=== PATIENT | male | born 1960 | race Hispanic/Latino ===

== ENCOUNTER 2021-06-08 00:09 | Emergency (ER) | payer OTHER ==
[2021-06-08] MEDS ORDERED: SODIUM CHLORIDE 0.9% 1000 ML 1,000 ML IV ONE ×2 (02:35→04:07)
--- NOTE | 2021-06-08 02:35 | Emergency Department Report ---
ED Fall HPI - General Chief Complaint: Fall Stated Complaint: HEAD INJURY Time Seen by Provider: 06/08/21 02:25 Source: patient, EMS Mode of arrival: Stretcher - History of Present Illness Initial Comments: Patient is 61 years old male brought to the emergency room from a local [facility] facility for evaluation after a fall. Patient stated that he slipped and fell hit his back of his head he has ecchymosis to the back of the head. Patient also is complaining of lower back pain however stated that this is been going on for a while and is not due to the fall. Patient denied any loss of consciousness. No neck pain. No weakness numbness or tingling sensation. No bowel or bladder incontinence. MD Complaint: fall -: Sudden, Last night Fall From: standing Loss of Consciousness: none Prolonged Down Time?: no Symptoms Prior to Fall: none Location: head, back Context: tripped/slipped Associated Symptoms: headache. denies: neck pain, numbness, chest paint, shortness of breath, abdominal pain, hematuria, unable to walk, lightheaded - Related Data Allergies Allergy/AdvReac Type Severity Reaction Status Date / Time No Known Allergies Allergy Unverified 06/08/21 01:55 ED Review of Systems ROS: Stated complaint: HEAD INJURY Other details as noted in HPI Comment: All other systems reviewed and negative Constitutional: denies: chills, fever Respiratory: denies: cough, orthopnea, shortness of breath, SOB with exertion Cardiovascular: denies: chest pain, palpitations Gastrointestinal: denies: abdominal pain, nausea, vomiting, diarrhea, constipation, hematemesis Musculoskeletal: back pain Neurological: headache. denies: weakness, numbness, paresthesias, confusion ED Past Medical Hx - Past Medical History Previous Medical History?: Yes Hx Hypertension: Yes Hx Psychiatric Treatment: Yes (Depression) Additional medical history: Gout,. Cirrohiss of Liver - Surgical History Past Surgical History?: No ED Physical Exam - General Limitations: No Limitations General appearance: alert, in no apparent distress - Head Head exam: Present: normocephalic, normal inspection, other (Ecchymosis to the back of the head.) - Eye Eye exam: Present: normal appearance - ENT ENT exam: Present: normal exam - Neck Neck exam: Present: normal inspection, full ROM. Absent: tenderness, meningismus - Respiratory Respiratory exam: Present: normal lung sounds bilaterally - Cardiovascular Cardiovascular Exam: Present: regular rate, normal rhythm, normal heart sounds - GI/Abdominal GI/Abdominal exam: Present: soft, normal bowel sounds. Absent: distended, tenderness, guarding, rebound, rigid, organomegaly, mass, bruit, pulsatile mass, hernia - Extremities Exam Extremities exam: Present: normal inspection, full ROM, normal capillary refill. Absent: tenderness, pedal edema, joint swelling, calf tenderness - Back Exam Back exam: Present: normal inspection, full ROM. Absent: CVA tenderness (R), CVA tenderness (L) - Neurological Exam Neurological exam: Present: alert, oriented X3, CN II-XII intact, normal gait, reflexes normal. Absent: motor sensory deficit - Psychiatric Psychiatric exam: Present: normal mood - Skin Skin exam: Present: warm, intact, normal color ED Course Vital Signs 06/08/21 06/08/21 06/08/21 01:56 02:47 04:08 Temperature 98.2 F Pulse Rate 105 H 72 Respiratory 16 16 Rate Blood Pressure 94/56 94/66 88/56 [Right] O2 Sat by Pulse 95 Oximetry ED Medical Decision Making - Lab Data Result diagrams: 06/08/21 03:02 06/08/21 03:02 - Radiology Data Radiology results: report reviewed - Medical Decision Making Patient is 61 years old male brought to the emergency room from a local psychiatric facility for evaluation after a fall. Patient stated that he slipped and fell hit his back of his head he has ecchymosis to the back of the head. Patient also is complaining of lower back pain however stated that this is been going on for a while and is not due to the fall. Patient denied any loss of consciousness. No neck pain. No weakness numbness or tingling sensation. No bowel or bladder incontinence. Patient found to be hypertensive with a blood pressure of 90/42. Patient received normal saline. Low blood pressure is most likely secondary to his antipsychotic medication. CT brain is negative for acute finding. Patient advised to follow-up with his primary doctor in the next 2 to 3 days and to return to the ER if he develop any symptoms. Critical care attestation.: If time is entered above; I have spent that time in minutes in the direct care of this critically ill patient, excluding procedure time. ED Disposition Clinical Impression: Head injury, Hypotension Dis[facility]: [facility] Is pt being admited?: No Condition: Stable Instructions: Hypotension, [id number] Referrals: VIVEK GARCIA MD [Primary Care Provider] - 3-5 Days
[2021-06-08 03:16] LABS: Basophils % (Auto) 0.9 % (0.0-1.8); Eosinophils # (Auto) 0.1 K/mm3 (0.0-0.4); Eosinophils % (Auto) 1.8 % (0.0-4.3); Hematocrit 40.2 % (35.5-45.6); Hemoglobin 13.5 gm/dl (11.8-15.2); Lymphocytes # (Auto) 0.3 K/mm3 (1.2-5.4); Lymphocytes % (Auto) 7.8 % (13.4-35.0); Mean Corpuscular HGB Conc 34 % (32-34); Mean Corpuscular Volume 105 fl (84-94); Monocytes # (Auto) 0.6 K/mm3 (0.0-0.8); Monocytes % (Auto) 14.4 % (0.0-7.3); Platelet Count 127 K/mm3 (140-440); Red Blood Count 3.82 M/mm3 (3.65-5.03); Red Cell Distribution Width 14.4 % (13.2-15.2)
[2021-06-08 03:31] LABS: Blood Urea Nitrogen 11 mg/dL (9-20); Calcium 8.6 mg/dL (8.4-10.2); Hemolysis Index 4
[2021-06-08 03:32] LABS: BUN/Creatinine Ratio 22
--- NOTE | 2021-06-08 04:03 | Cat Scan Report ---
CT HEAD WITHOUT CONTRAST INDICATION / CLINICAL INFORMATION: head injury. TECHNIQUE: All CT scans at this location are performed using CT dose reduction for ALARA by means of automated exposure control. COMPARISON: None available. FINDINGS: BRAIN PARENCHYMA: No acute intracranial hemorrhage. No evidence of recent infarct. No mass effect or midline shift. VENTRICULAR SYSTEM/EXTRA-AXIAL SPACES: There is generalized atrophy with secondary enlargement of the ventricles. No extra-axial fluid collection. ORBITS: Normal as visualized. SKELETAL SYSTEM/SOFT TISSUES: Normal bones and soft tissues. PARANASAL SINUSES/MASTOID AIR CELLS: Moderate mucosal thickening is noted along the right maxillary s inus. No other significant abnormality. ADDITIONAL FINDINGS: None. IMPRESSION: 1. No acute intracranial abnormality. 2. Additional findings as above. Signer Name: Kirit Roa MD Signed: 06/08/2021 3:59 AM Workstation Name: [id number]
[2021-06-08 04:52] VITALS: BP 94/67
== END 2021-06-08 06:40 ==
LOC: ED 00:09
DX: S09.90XA Unspecified injury of head, initial encounter (principal); I95.9 Hypotension, unspecified; F32.A Depression, unspecified; W19.XXXA Unspecified fall, initial encounter; Y93.89 Activity, other specified; Y92.89 Other specified places as the place of occurrence of the external cause; Y99.8 Other external cause status
CPT/HCPCS: 36415; 70450; 80048; 85025; 96360; 96361; 99284; J7030

== ENCOUNTER 2021-06-08 21:09 | Inpatient (IN) | payer OTHER ==
[2021-06-08] MEDS ORDERED: SODIUM CHLORIDE 0.9% 1000 ML 1,000 ML IV ONE ×2 (21:47→23:32)
[2021-06-08 21:59] LABS: Basophils % (Auto) 0.7 % (0.0-1.8); Eosinophils # (Auto) 0.1 K/mm3 (0.0-0.4); Eosinophils % (Auto) 1.5 % (0.0-4.3); Hematocrit 38.8 % (35.5-45.6); Hemoglobin 13.4 gm/dl (11.8-15.2); Lymphocytes # (Auto) 0.3 K/mm3 (1.2-5.4); Lymphocytes % (Auto) 7.1 % (13.4-35.0); Mean Corpuscular HGB Conc 35 % (32-34); Mean Corpuscular Volume 105 fl (84-94); Monocytes # (Auto) 0.5 K/mm3 (0.0-0.8); Monocytes % (Auto) 11.5 % (0.0-7.3); Platelet Count 136 K/mm3 (140-440); Red Blood Count 3.71 M/mm3 (3.65-5.03); Red Cell Distribution Width 14.7 % (13.2-15.2)
--- NOTE | 2021-06-08 22:06 | Emergency Department Report ---
ED General Adult HPI - General Stated complaint: HYPOTENSION/ REPEATED FALLS Time Seen by Provider: 06/08/21 21:34 Source: patient - History of Present Illness Initial comments: Patient is 61 years old male with history of liver cirrhosis currently admitted to [facility]. Patient brought to the emergency room via EMS for evaluation of frequent fall and hypertension. Patient was seen here yesterday for similar complaint. CT brain was negative for acute finding. According to the patient stated that he went out and when he came down he felt dizzy and he fell. EMS stated that his initial blood pressure was 80/42 patient received 1 L of normal saline and his blood pressure now is 130/52. Patient denied any headache, neck pain, chest pain, shortness of breath, nausea or vomiting. - Related Data Previous Rx's Medication Instructions Recorded Last Taken Type Naproxen [Naprosyn] 500 mg PO BID #14 tablet 06/08/21 Unknown Rx Allergies Allergy/AdvReac Type Severity Reaction Status Date / Time No Known Allergies Allergy Unverified 06/08/21 01:55 ED Review of Systems ROS: Stated complaint: HYPOTENSION/ REPEATED FALLS Other details as noted in HPI Comment: All other systems reviewed and negative Constitutional: denies: chills, fever Respiratory: denies: cough, shortness of breath, SOB with exertion, SOB at rest Cardiovascular: denies: chest pain Gastrointestinal: denies: abdominal pain, nausea, vomiting Musculoskeletal: denies: back pain ED Past Medical Hx - Past Medical History Hx Hypertension: Yes Hx Psychiatric Treatment: Yes (Depression) Additional medical history: Gout,. Cirrohiss of Liver - Social History Smoking Status: Never Smoker Substance Use Type: None - Medications Home Medications: Home Medications Medication Instructions Recorded Confirmed Last Taken Type Naproxen [Naprosyn] 500 mg PO BID #14 tablet 06/08/21 Unknown Rx ED Physical Exam - General General appearance: alert, in no apparent distress - Head Head exam: Present: other (Contusion to the back of the scalp.) - Eye Eye exam: Present: normal appearance - ENT ENT exam: Present: normal exam, normal orophraynx, mucous membranes moist - Neck Neck exam: Present: normal inspection, full ROM. Absent: tenderness, meningismus - Respiratory Respiratory exam: Present: normal lung sounds bilaterally - Cardiovascular Cardiovascular Exam: Present: regular rate, normal rhythm, normal heart sounds - GI/Abdominal GI/Abdominal exam: Present: soft, normal bowel sounds. Absent: distended, tenderness, guarding, rebound, rigid, organomegaly, mass, bruit, pulsatile mass, hernia - Extremities Exam Extremities exam: Present: other (Abrasion to the left upper extremities.) - Back Exam Back exam: Present: normal inspection, full ROM. Absent: CVA tenderness (R), CVA tenderness (L) - Neurological Exam Neurological exam: Present: alert, oriented X3, CN II-XII intact. Absent: motor sensory deficit - Skin Skin exam: Present: warm, abrasion ED Course Vital Signs 06/08/21 06/08/21 06/08/21 22:09 22:15 22:31 Temperature Pulse Rate 130 H 129 H 113 H Respiratory 19 13 19 Rate Blood Pressure 90/56 96/63 O2 Sat by Pulse 97 94 96 Oximetry 06/08/21 06/08/21 06/08/21 22:45 23:01 23:15 Temperature Pulse Rate 147 H 124 H 127 H Respiratory 25 H 14 Rate Blood Pressure 97/55 119/46 116/56 O2 Sat by Pulse 95 94 93 Oximetry 06/08/21 06/08/21 06/09/21 23:31 23:45 00:01 Temperature Pulse Rate 105 H 119 H 119 H Respiratory 16 16 20 Rate Blood Pressure 107/80 97/70 94/65 O2 Sat by Pulse 95 94 99 Oximetry 06/09/21 06/09/21 06/09/21 00:15 00:31 00:38 Temperature 97.6 F Pulse Rate 128 H 127 H Respiratory 22 22 Rate Blood Pressure 91/67 92/56 O2 Sat by Pulse 95 82 L Oximetry 06/09/21 06/09/21 06/09/21 00:45 01:01 01:15 Temperature Pulse Rate 107 H 121 H 121 H Respiratory 37 H 18 15 Rate Blood Pressure 91/73 91/72 86/62 O2 Sat by Pulse 94 95 96 Oximetry 06/09/21 06/09/21 06/09/21 01:31 01:45 02:01 Temperature Pulse Rate 115 H 128 H 112 H Respiratory 21 17 17 Rate Blood Pressure 90/49 84/56 103/81 O2 Sat by Pulse 92 95 95 Oximetry 06/09/21 06/09/21 06/09/21 02:15 02:31 02:45 Temperature Pulse Rate 113 H 123 H Respiratory 16 17 Rate Blood Pressure 99/78 86/68 82/61 O2 Sat by Pulse 96 97 96 Oximetry 06/09/21 06/09/21 03:01 03:15 Temperature Pulse Rate 122 H 121 H Respiratory 15 13 Rate Blood Pressure O2 Sat by Pulse 91 91 Oximetry ED Medical Decision Making - Lab Data Result diagrams: 06/08/21 21:46 06/08/21 21:46 - EKG Data -: EKG Interpreted by Me - EKG Data 06/09/21 04:21 Atrial fibrillation with a heart rate of 115. - Medical Decision Making Patient is 61 years old male with history of liver cirrhosis currently admitted to [facility]. Patient brought to the emergency room via EMS for evaluation of frequent fall and hypertension. Patient was seen here yesterday for similar complaint. CT brain was negative for acute finding. According to the patient stated that he went out and when he came down he felt dizzy and he fell. EMS stated that his initial blood pressure was 80/42 patient received 1 L of normal saline and his blood pressure now is 130/52. Patient denied any headache, neck pain, chest pain, shortness of breath, nausea or vomiting. Labs reviewed and showed a slight elevated lactic acid corrected with 2 L of fluids. Patient however still hypertensive. I added another liter of fluids. I believe this is most likely side effect of his antipsychotic medication. I discussed the patient with Dr. Brush, he agreed to admit the patient to medical service for further management. Critical Care Time: Yes Critical care time in (mins) excluding proc time.: 35 Critical care attestation.: If time is entered above; I have spent that time in minutes in the direct care of this critically ill patient, excluding procedure time. ED Disposition Clinical Impression: Hypotension, Lactic acidosis Disposition: ADMITTED INPATIENT Is pt being admited?: Yes Condition: Stable
[2021-06-08 22:16] LABS: Blood Urea Nitrogen 9 mg/dL (9-20); Calcium 7.9 mg/dL (8.4-10.2); Hemolysis Index 8
[2021-06-08 23:12] LABS: BUN/Creatinine Ratio 23
[2021-06-09] MEDS ORDERED: SODIUM CHLORIDE 0.9% 1000 ML 1,000 ML IV ONE (02:57)
[2021-06-09] MEDS ORDERED: ONDANSETRON 4 MG/2 ML INJ IV PRN (06:19)
[2021-06-09] MEDS ORDERED: MORPHINE 2 MG/1 ML INJ IV PRN (06:19)
[2021-06-09] MEDS ORDERED: MORPHINE 4 MG/1 ML INJ IV PRN (06:19)
[2021-06-09] MEDS ORDERED: MAGNESIUM HYDROXIDE (MOM) ORAL LIQD UDC PO PRN (06:19)
--- NOTE | 2021-06-09 06:27 | History and Physical Report ---
History of Present Illness Date of examination: 06/09/21 Date of admission: 06/09/2021 Chief complaint: Falls History of present illness: 61-year-old male with known history of liver cirrhosis and depression currently [facility] brought into the emergency room today for evaluation of hypotension and frequent falls. Patient was seen about 24 hours ago for similar presentation. Work-up at that time reveals no acute findings. Was outside at the facility today when he suddenly became dizzy and fell. According to EMS blood pressure was said to be about 80/42 mmHg. Patient sustained a laceration to the occipital aspect of his head during the fall. Patient received a liter of normal saline with improvement of blood pressure to about 130/52. Work-up in the emergency room today, significant findings on the labs includes mild hyponatremia 132, lactic acidosis of 2.4 and calcium level of 7.9 Patient has been continued on IV fluid normal saline. Past History Past Medical History: hypertension, other (Depression,Gout,Cirrhosis of the liver) Past Surgical History: No surgical history Social history: no significant social history Family history: no significant family history Medications and Allergies Allergies Allergy/AdvReac Type Severity Reaction Status Date / Time No Known Allergies Allergy Verified 06/09/21 06:22 Home Medications Medication Instructions Recorded Confirmed Last Taken Type Naproxen [Naprosyn] 500 mg PO BID #14 tablet 06/08/21 Unknown Rx Active Meds: Active Medications Acetaminophen (Acetaminophen 325 Mg Tab) 650 mg PO Q4H PRN PRN Reason: Pain MILD(1-3)/Fever >100.5/GONSALES Heparin Sodium (Porcine) (Heparin 5,000 Unit/1 Ml Vial) 5,000 unit SUB-Q Q8HR TOY Sodium Chloride (Nacl 0.9% 1000 Ml) 1,000 mls @ 125 mls/hr IV DIRECT TOY Magnesium Hydroxide (Magnesium Hydroxide (Mom) Oral Liqd Udc) 30 ml PO Q4H PRN PRN Reason: Constipation Morphine Sulfate (Morphine 2 Mg/1 Ml Inj) 2 mg IV Q4H PRN PRN Reason: Pain, Moderate (4-6) Morphine Sulfate (Morphine 4 Mg/1 Ml Inj) 4 mg IV Q4H PRN PRN Reason: Pain , Severe (7-10) Ondansetron HCl (Ondansetron 4 Mg/2 Ml Inj) 4 mg IV Q8H PRN PRN Reason: Nausea And Vomiting Sodium Chloride (Sodium Chloride 0.9% 10 Ml Flush Syringe) 10 ml IV BID TOY Sodium Chloride (Sodium Chloride 0.9% 10 Ml Flush Syringe) 10 ml IV PRN PRN PRN Reason: LINE FLUSH Review of Systems Constitutional: no fever, no chills Ears, nose, mouth and throat: no nasal congestion, no sore throat Cardiovascular: no chest pain, no palpitations Respiratory: no cough, no shortness of breath Gastrointestinal: no nausea, no vomiting, no diarrhea Genitourinary Male: no dysuria, no hematuria, no flank pain Musculoskeletal: no neck pain, no low back pain Integumentary: no rash, no pruritis Neurological: no headaches, no confusion Psychiatric: no anxiety, no depression Endocrine: no polyphagia, no polydipsia, no polyuria Exam - Constitutional Vitals: Temp Pulse Resp BP Pulse Ox 97.6 F 113 H 16 100/63 98 06/09/21 00:38 06/09/21 05:45 06/09/21 05:45 06/09/21 05:45 06/09/21 05:45 General appearance: Present: no acute distress, well-nourished, other ( laceration on the occipital aspect of scalp) - EENT Eyes: Present: PERRL, EOM intact. Absent: scleral icterus ENT: hearing intact, clear oral mucosa, dentition normal - Neck Neck: Present: supple, normal ROM - Respiratory Respiratory effort: normal Respiratory: bilateral: CTA - Cardiovascular Rhythm: regular Heart Sounds: Present: S1 & S2. Absent: gallop, systolic murmur, diastolic murmur, rub, click - Extremities Extremities: no ischemia, pulses intact, pulses symmetrical, No edema, normal temperature, normal color, Full ROM Peripheral Pulses: within normal limits - Abdominal General gastrointestinal: Present: soft, non-tender, non-distended, normal bowel sounds. Absent: mass - Integumentary Integumentary: Present: clear, warm, dry, normal turgor. Absent: rash - Musculoskeletal Musculoskeletal: strength equal bilaterally - Psychiatric Psychiatric: appropriate mood/affect, intact judgment & insight, memory intact, cooperative - Neurologic Neurologic: CNII-XII intact, no focal deficits, moves all extremities Results - Labs CBC & Chem 7: 06/08/21 21:46 06/08/21 21:46 Labs: Abnormal lab results 06/08/21 06/08/21 06/08/21 Range/Units 21:46 21:46 21:46 MCV 105 H (84-94) fl MCH 36 H (28-32) pg MCHC 35 H (32-34) % Plt Count 136 L (140-440) K/mm3 Lymph % (Auto) 7.1 L (13.4-35.0) % [place] % (Auto) 11.5 H (0.0-7.3) % Lymph # (Auto) 0.3 L (1.2-5.4) K/mm3 Seg Neutrophils % 79.2 H (40.0-70.0) % Sodium 132 L (137-145) mmol/L Carbon Dioxide 21 L (22-30) mmol/L Creatinine 0.4 L (0.8-1.3) mg/dL Glucose 122 H (75-100) mg/dL Lactic Acid 2.40 H* (0.7-2.0) mmol/L Calcium 7.9 L (8.4-10.2) mg/dL Assessment and Plan - Patient Problems (1) Hypotension Current Visit: Yes Status: Acute Plan to address problem: Etiology is unclear. We will monitor vital signs closely. Patient continued on IV fluid normal saline. We will also monitor orthostatics. (2) Lactic acidosis Current Visit: Yes Status: Acute Plan to address problem: Patient will be continued on IV fluid. Will monitor chemistry. (3) Head injury Current Visit: No Status: Acute Plan to address problem: Secondary to ground-level fall. We will schedule for CT scan of the brain. (4) DVT prophylaxis Current Visit: Yes Status: Acute Plan to address problem: Patient placed on subcutaneous heparin. (5) Full code status Current Visit: Yes Status: Acute Plan to address problem: Patient is full code.
--- NOTE | 2021-06-09 07:05 | Cat Scan Report ---
CT HEAD WITHOUT CONTRAST INDICATION / CLINICAL INFORMATION: Fall with a laceration to scalp. TECHNIQUE: All CT scans at this location are performed using CT dose reduction for ALARA by means of automated exposure control. COMPARISON: CT head without contrast from 06/08/2021. FINDINGS: BRAIN PARENCHYMA: No acute intracranial hemorrhage. No evidence of recent infarct. No mass effect or midline shift. VENTRICULAR SYSTEM/EXTRA-AXIAL SPACES: Unchanged atrophy with enlargement of the ventricles. No extra -axial fluid collection. ORBITS: Normal as visualized. SKELETAL SYSTEM/SOFT TISSUES: Normal bones and soft tissues. PARANASAL SINUSES/MASTOID AIR CELLS: Right maxillary sinus mucosal thickening is again noted. No othe r significant abnormality. ADDITIONAL FINDINGS: None. IMPRESSION: 1. No acute intracranial abnormality. No significant interval changes. Signer Name: Kirit Roa MD Signed: 06/09/2021 7:01 AM Workstation Name: [id number]
[2021-06-09] MEDS: SODIUM CHLORIDE 0.9% 1000 ML 1,000 ML IV SCH ×2 (09:13→22:52)
--- NOTE | 2021-06-09 11:04 | Progress Note ---
Assessment and Plan Assessment and plan: 61-year-old male with known history of liver cirrhosis and depression currently on admission [facility] psychiatric facility brought into the emergency room for evaluation of hypotension and frequent falls. According to EMS blood pressure was said to be about 80/42 mmHg. Patient sustained a laceration to the occipital aspect of his head during the fall. Patient received a liter of normal saline with improvement of blood pressure to about 130/52. Lab findings revealed mild hyponatremia 132, lactic acidosis of 2.4 and calcium level of 7.9. The patient was admitted with diagnosis below: Presyncope Orthostatic hypotension Scalp laceration Patient currently under 1013 History Interval history: No new issues overnight Hospitalist Physical - Constitutional Vitals: Temp Pulse Resp BP Pulse Ox 98.1 F 106 H 12 87/58 96 06/09/21 08:49 06/09/21 08:49 06/09/21 08:49 06/09/21 08:49 06/09/21 08:49 General appearance: Present: no acute distress, well-nourished, other ( laceration on the occipital aspect of scalp) - EENT Eyes: Present: PERRL, EOM intact ENT: hearing intact, clear oral mucosa, dentition normal - Neck Neck: Present: supple, normal ROM - Respiratory Respiratory effort: normal Respiratory: bilateral: CTA - Cardiovascular Rhythm: regular Heart Sounds: Present: S1 & S2. Absent: gallop, rub - Extremities Extremities: no ischemia, No edema, Full ROM - Abdominal General gastrointestinal: soft, non-tender, non-distended, normal bowel sounds - Integumentary Integumentary: Present: clear, warm, dry - Neurologic Neurologic: CNII-XII intact, moves all extremities Results - Labs CBC & Chem 7: 06/08/21 21:46 06/08/21 21:46 Labs: Laboratory Last Values WBC 4.7 K/mm3 (4.5-11.0) 06/08/21 21:46 RBC 3.71 M/mm3 (3.65-5.03) 06/08/21 21:46 Hgb 13.4 gm/dl (11.8-15.2) 06/08/21 21:46 Hct 38.8 % (35.5-45.6) 06/08/21 21:46 MCV 105 fl (84-94) H 06/08/21 21:46 MCH 36 pg (28-32) H 06/08/21 21:46 MCHC 35 % (32-34) H 06/08/21 21:46 RDW 14.7 % (13.2-15.2) 06/08/21 21:46 Plt Count 136 K/mm3 (140-440) L 06/08/21 21:46 Lymph % (Auto) 7.1 % (13.4-35.0) L 06/08/21 21:46 [place] % (Auto) 11.5 % (0.0-7.3) H 06/08/21 21:46 Eos % (Auto) 1.5 % (0.0-4.3) 06/08/21 21:46 Baso % (Auto) 0.7 % (0.0-1.8) 06/08/21 21:46 Lymph # (Auto) 0.3 K/mm3 (1.2-5.4) L 06/08/21 21:46 [place] # (Auto) 0.5 K/mm3 (0.0-0.8) 06/08/21 21:46 Eos # (Auto) 0.1 K/mm3 (0.0-0.4) 06/08/21 21:46 Baso # (Auto) 0.0 K/mm3 (0.0-0.1) 06/08/21 21:46 Seg Neutrophils % 79.2 % (40.0-70.0) H 06/08/21 21:46 Seg Neutrophils # 3.7 K/mm3 (1.8-7.7) 06/08/21 21:46 Sodium 132 mmol/L (137-145) L 06/08/21 21:46 Potassium 4.1 mmol/L (3.6-5.0) 06/08/21 21:46 Chloride 101.2 mmol/L (98-107) 06/08/21 21:46 Carbon Dioxide 21 mmol/L (22-30) L 06/08/21 21:46 Anion Gap 14 mmol/L 06/08/21 21:46 BUN 9 mg/dL (9-20) 06/08/21 21:46 Creatinine 0.4 mg/dL (0.8-1.3) L 06/08/21 21:46 Estimated GFR > 60 ml/min 06/08/21 21:46 BUN/Creatinine Ratio 23 % 06/08/21 21:46 Glucose 122 mg/dL (75-100) H 06/08/21 21:46 Lactic Acid 1.50 mmol/L (0.7-2.0) 06/09/21 00:14 Calcium 7.9 mg/dL (8.4-10.2) L 06/08/21 21:46 Active Medications - Current Medications Current Medications: Generic Name Dose Route Start Last Admin Trade Name Freq PRN Reason Stop Dose Admin Acetaminophen 650 mg 06/09/21 06:19 Acetaminophen 325 Mg Tab PO Q4H PRN Pain MILD(1-3)/Fever >100.5/GONSALES Heparin Sodium (Porcine) 5,000 unit 06/09/21 14:00 Heparin 5,000 Unit/1 Ml Vial SUB-Q Q8HR TOY Sodium Chloride 1,000 mls @ 125 mls/hr 06/09/21 06:30 06/09/21 09:13 Nacl 0.9% 1000 Ml IV 125 mls/hr DIRECT TOY Administration Magnesium Hydroxide 30 ml 06/09/21 06:19 Magnesium Hydroxide (Mom) Oral Liqd Udc PO Q4H PRN Constipation Morphine Sulfate 2 mg 06/09/21 06:19 Morphine 2 Mg/1 Ml Inj IV Q4H PRN Pain, Moderate (4-6) Morphine Sulfate 4 mg 06/09/21 06:19 Morphine 4 Mg/1 Ml Inj IV Q4H PRN Pain , Severe (7-10) Ondansetron HCl 4 mg 06/09/21 06:19 Ondansetron 4 Mg/2 Ml Inj IV Q8H PRN Nausea And Vomiting Sodium Chloride 10 ml 06/09/21 10:00 Sodium Chloride 0.9% 10 Ml Flush Syringe IV BID TOY Sodium Chloride 10 ml 06/09/21 06:19 Sodium Chloride 0.9% 10 Ml Flush Syringe IV PRN PRN LINE FLUSH
[2021-06-09] MEDS: HEPARIN 5,000 UNIT/1 ML VIAL SUB-Q SCH ×2 (14:35→22:51)
[2021-06-09 20:17] LABS: Bilirubin,Urine NEG (Negative); Blood,Urine NEG (Negative); Color,Urine Amber (Yellow); Mucus,Urine FEW /HPF; Protein,Urine <15 mg/dL mg/dL (Negative); RBC,Urine < 1.0 /HPF (0.0-6.0); WBC,Urine < 1.0 /HPF (0.0-6.0)
[2021-06-10 05:50] LABS: Basophils % (Auto) 1.2 % (0.0-1.8); Eosinophils % (Auto) 1.1 % (0.0-4.3); Hematocrit 37.5 % (35.5-45.6); Hemoglobin 12.5 gm/dl (11.8-15.2); Lymphocytes # (Auto) 0.2 K/mm3 (1.2-5.4); Lymphocytes % (Auto) 6.2 % (13.4-35.0); Mean Corpuscular HGB Conc 33 % (32-34); Mean Corpuscular Volume 106 fl (84-94); Monocytes # (Auto) 0.4 K/mm3 (0.0-0.8); Monocytes % (Auto) 9.7 % (0.0-7.3); Platelet Count 107 K/mm3 (140-440); Red Blood Count 3.53 M/mm3 (3.65-5.03); Red Cell Distribution Width 14.9 % (13.2-15.2)
[2021-06-10 06:06] LABS: Blood Urea Nitrogen 7 mg/dL (9-20); Calcium 7.7 mg/dL (8.4-10.2); Hemolysis Index 8
[2021-06-10 06:17] LABS: BUN/Creatinine Ratio 14
[2021-06-10] MEDS: HEPARIN 5,000 UNIT/1 ML VIAL SUB-Q SCH (06:26)
--- NOTE | 2021-06-10 09:42 | Progress Note ---
Assessment and Plan Assessment and plan: 61-year-old male with known history of liver cirrhosis and depression currently on admission alcohol psychiatric facility brought into the emergency room for evaluation of hypotension and frequent falls. According to EMS blood pressure was said to be about 80/42 mmHg. Patient sustained a laceration to the occipital aspect of his head during the fall. Patient received a liter of normal saline with improvement of blood pressure to about 130/52. Lab findings revealed mild hyponatremia 132, lactic acidosis of 2.4 and calcium level of 7.9. The patient was admitted with diagnosis below: Presyncope Orthostatic hypotension Scalp laceration Patient currently under 1013 06/10/2021. Nurse reports patient with heart rate in the 160s. Etiology may be physiologic from SIRS/dehydration. Patient does have low-grade fever. Will check EKG and consult cardiology. Continue IV fluid hydration. Follow-up TSH History Interval history: No new issues overnight Hospitalist Physical - Constitutional Vitals: Temp Pulse Resp BP Pulse Ox 100.1 F H 74 22 104/73 93 06/10/21 08:05 06/10/21 08:05 06/10/21 08:05 06/10/21 08:05 06/10/21 08:05 General appearance: Present: no acute distress, well-nourished, other ( laceration on the occipital aspect of scalp) - EENT Eyes: Present: PERRL, EOM intact ENT: hearing intact, clear oral mucosa, dentition normal - Neck Neck: Present: supple, normal ROM - Respiratory Respiratory effort: normal Respiratory: bilateral: CTA - Cardiovascular Rhythm: regular Heart Sounds: Present: S1 & S2. Absent: gallop, rub - Extremities Extremities: no ischemia, No edema, Full ROM - Abdominal General gastrointestinal: soft, non-tender, non-distended, normal bowel sounds - Integumentary Integumentary: Present: clear, warm, dry - Neurologic Neurologic: CNII-XII intact, moves all extremities Results - Labs CBC & Chem 7: 06/10/21 04:59 06/10/21 04:59 Labs: Laboratory Last Values WBC 3.9 K/mm3 (4.5-11.0) L 06/10/21 04:59 RBC 3.53 M/mm3 (3.65-5.03) L 06/10/21 04:59 Hgb 12.5 gm/dl (11.8-15.2) 06/10/21 04:59 Hct 37.5 % (35.5-45.6) 06/10/21 04:59 MCV 106 fl (84-94) H 06/10/21 04:59 MCH 36 pg (28-32) H 06/10/21 04:59 MCHC 33 % (32-34) 06/10/21 04:59 RDW 14.9 % (13.2-15.2) 06/10/21 04:59 Plt Count 107 K/mm3 (140-440) L 06/10/21 04:59 Lymph % (Auto) 6.2 % (13.4-35.0) L 06/10/21 04:59 [place] % (Auto) 9.7 % (0.0-7.3) H 06/10/21 04:59 Eos % (Auto) 1.1 % (0.0-4.3) 06/10/21 04:59 Baso % (Auto) 1.2 % (0.0-1.8) 06/10/21 04:59 Lymph # (Auto) 0.2 K/mm3 (1.2-5.4) L 06/10/21 04:59 [place] # (Auto) 0.4 K/mm3 (0.0-0.8) 06/10/21 04:59 Eos # (Auto) 0.0 K/mm3 (0.0-0.4) 06/10/21 04:59 Baso # (Auto) 0.0 K/mm3 (0.0-0.1) 06/10/21 04:59 Seg Neutrophils % 81.8 % (40.0-70.0) H 06/10/21 04:59 Seg Neutrophils # 3.2 K/mm3 (1.8-7.7) 06/10/21 04:59 Sodium 133 mmol/L (137-145) L 06/10/21 04:59 Potassium 3.4 mmol/L (3.6-5.0) L 06/10/21 04:59 Chloride 102.2 mmol/L (98-107) 06/10/21 04:59 Carbon Dioxide 20 mmol/L (22-30) L 06/10/21 04:59 Anion Gap 14 mmol/L 06/10/21 04:59 BUN 7 mg/dL (9-20) L 06/10/21 04:59 Creatinine 0.5 mg/dL (0.8-1.3) L 06/10/21 04:59 Estimated GFR > 60 ml/min 06/10/21 04:59 BUN/Creatinine Ratio 14 % 06/10/21 04:59 Glucose 90 mg/dL (75-100) 06/10/21 04:59 Lactic Acid 1.50 mmol/L (0.7-2.0) 06/09/21 00:14 Calcium 7.7 mg/dL (8.4-10.2) L 06/10/21 04:59 Urine Color Tamela (Yellow) 06/09/21 19: Urine Turbidity Clear (Clear) 06/09/21 19: Urine pH 5.0 (5.0-7.0) 06/09/21 19:22 Ur Specific [place] 1.017 (1.003-1.030) 06/09/21 19:22 Urine Protein <15 mg/dl mg/dL (Negative) 06/09/21 19:22 Urine Glucose (UA) Neg mg/dL (Negative) 06/09/21 19:22 Urine Ketones Neg mg/dL (Negative) 06/09/21 19:22 Urine Blood Neg (Negative) 06/09/21 19:22 Urine Nitrite Neg (Negative) 06/09/21 19:22 Urine Bilirubin Neg (Negative) 06/09/21 19:22 Urine Urobilinogen 2.0 mg/dL (<2.0) 06/09/21 19:22 Ur Leukocyte Esterase Neg (Negative) 06/09/21 19:22 Urine WBC (Auto) < 1.0 /HPF (0.0-6.0) 06/09/21 19:22 Urine RBC (Auto) < 1.0 /HPF (0.0-6.0) 06/09/21 19:22 U Epithel Cells (Auto) < 1.0 /HPF (0-13.0) 06/09/21 19:22 Urine Mucus Few /HPF 06/09/21 19:22 Adams/IV: Voiding Method Toilet Active Medications - Current Medications Current Medications: Generic Name Dose Route Start Last Admin Trade Name Freq PRN Reason Stop Dose Admin Acetaminophen 650 mg 06/09/21 06:19 Acetaminophen 325 Mg Tab PO Q4H PRN Pain MILD(1-3)/Fever >100.5/GONSALES Bisacodyl 10 mg 06/09/21 13:39 Bisacodyl 10 Mg Rect Supp [place] QDAY PRN Constipation Heparin Sodium (Porcine) 5,000 unit 06/09/21 14:00 06/10/21 06:26 Heparin 5,000 Unit/1 Ml Vial SUB-Q 5,000 unit Q8HR TOY Administration Sodium Chloride 1,000 mls @ 125 mls/hr 06/09/21 06:30 06/10/21 06:28 Nacl 0.9% 1000 Ml IV 125 mls/hr DIRECT TOY Infusion Magnesium Hydroxide 30 ml 06/09/21 06:19 Magnesium Hydroxide (Mom) Oral Liqd Udc PO Q4H PRN Constipation Morphine Sulfate 2 mg 06/09/21 06:19 Morphine 2 Mg/1 Ml Inj IV Q4H PRN Pain, Moderate (4-6) Morphine Sulfate 4 mg 06/09/21 06:19 Morphine 4 Mg/1 Ml Inj IV Q4H PRN Pain , Severe (7-10) Ondansetron HCl 4 mg 06/09/21 06:19 Ondansetron 4 Mg/2 Ml Inj IV Q8H PRN Nausea And Vomiting Sodium Chloride 10 ml 06/09/21 10:00 06/09/21 22:52 Sodium Chloride 0.9% 10 Ml Flush Syringe IV 10 ml BID TOY Administration Sodium Chloride 10 ml 06/09/21 06:19 Sodium Chloride 0.9% 10 Ml Flush Syringe IV PRN PRN LINE FLUSH
[2021-06-10] MEDS ORDERED: AMIODARONE 150 MG in DEXTROSE 5% IN WATER 97 ML IV NR (10:30)
--- NOTE | 2021-06-10 10:46 | Consultation ---
History of Present Illness Consult date: 06/10/21 Requesting physician: CHENCHO FARLEY Consult reason: tachycardia History of present illness: Patient is a 61-year-old male with past medical history of cirrhosis, depression, A. fib who presents to the ED on 06/08/2021 for complaint of hypotension and fall. History taken from chart and patient as patient is a poor historian and when asked about what happened patient reports that he was unsure. Per documentation patient was brought to the hospital the day prior for similar complaints and per documentation work-up at that time showed no acute findings. During this admission it is reported patient was outside of the increased facility when he became dizzy and fell EMS reported the patient had a blood pressure of 80/42. In the hospital patient was given fluid bolus pressure was raised to 130/52. Patient was also found to be hyponatremic, have lactic acidosis, and to be in A. fib. Yesterday patient went into A. fib with RVR with rates trending anywhere from 130s and to as high as 170s. At time of interview patient denies any complaints of chest pain, shortness of breath, nausea, vomiting, dizziness. Patient does report palpitations and passing out prior to admission. Patient is previously known to our practice. Cardiology is consulted for tachycardia. Past History Past Medical History: hypertension, other (Depression,Gout,Cirrhosis of the liver) Past Surgical History: No surgical history Social history: no significant social history Family history: CAD, cancer Medications and Allergies Allergies Allergy/AdvReac Type Severity Reaction Status Date / Time No Known Allergies Allergy Verified 06/09/21 06:22 Home Medications Medication Instructions Recorded Confirmed Last Taken Type Naproxen [Naprosyn] 500 mg PO BID #14 tablet 06/08/21 Unknown Rx Active Meds: Active Medications Acetaminophen (Acetaminophen 325 Mg Tab) 650 mg PO Q4H PRN PRN Reason: Pain MILD(1-3)/Fever >100.5/GONSALES Bisacodyl (Bisacodyl 10 Mg Rect Supp) 10 mg [place] QDAY PRN PRN Reason: Constipation Heparin Sodium (Porcine) (Heparin 10,000 Units/10 Ml Vial) 3,000 unit 40 un it/kg (3000 unit) IV ONCE@1100 NR Stop: 06/10/21 14:00 Heparin Sodium (Porcine) (Heparin 10,000 Units/10 Ml Vial) 3,000 unit 40 unit/kg (3000 unit) IV Q6H PRN PRN Reason: Anti-Xa Assay < 0.1 units/ml Sodium Chloride (Nacl 0.9% 1000 Ml) 1,000 mls @ 125 mls/hr IV DIRECT TOY Last Infusion: 06/10/21 06:28 Dose: 125 mls/hr Heparin Sodium/Sodium Chloride (Heparin/ 0.45% Nacl-25,000 Unit/500 Ml) 25,000 unit in 500 mls @ 21 mls/hr IV TITR TOY; Protocol Amiodarone HCl 150 mg/ (Dextrose) 100 mls @ 600 mls/hr IV ONCE@1030 NR Stop: 06/10/21 14:00 Amiodarone HCl 900 mg/ (Dextrose) 500 mls @ 33.333 mls/hr IV DIRECT TOY; Protocol Magnesium Hydroxide (Magnesium Hydroxide (Mom) Oral Liqd Udc) 30 ml PO Q4H PRN PRN Reason: Constipation Morphine Sulfate (Morphine 2 Mg/1 Ml Inj) 2 mg IV Q4H PRN PRN Reason: Pain, Moderate (4-6) Morphine Sulfate (Morphine 4 Mg/1 Ml Inj) 4 mg IV Q4H PRN PRN Reason: Pain , Severe (7-10) Ondansetron HCl (Ondansetron 4 Mg/2 Ml Inj) 4 mg IV Q8H PRN PRN Reason: Nausea And Vomiting Sodium Chloride (Sodium Chloride 0.9% 10 Ml Flush Syringe) 10 ml IV BID TOY Last Admin: 06/09/21 22:52 Dose: 10 ml Sodium Chloride (Sodium Chloride 0.9% 10 Ml Flush Syringe) 10 ml IV PRN PRN PRN Reason: LINE FLUSH Review of Systems Constitutional: no weight loss, no weight gain, no fever, no chills Ears, nose, mouth and throat: no nasal discharge, no sinus pressure, no sinus pain Cardiovascular: palpitations, rapid/irregular heart beat, no chest pain, no orthopnea, no shortness of breath, no dyspnea on exertion Respiratory: no shortness of breath, no dyspnea on exertion Gastrointestinal: no abdominal pain, no nausea, no vomiting Musculoskeletal: no neck stiffness, no neck pain, no shooting arm pain Integumentary: no rash, no pruritis, no redness Neurological: syncope Psychiatric: no anxiety, no memory loss Endocrine: no cold intolerance, no heat intolerance Hematologic/Lymphatic: no easy bruising, no easy bleeding Physical Examination Vital Signs Pulse Resp Pulse Ox 130 H 19 97 06/08/21 22:09 06/08/21 22:09 06/08/21 22:09 General appearance: no acute distress HEENT: Positive: PERRL, Normocephaly Neck: Positive: trachea midline Cardiac: Positive: irregularly irregular, Tachycardia Lungs: Positive: Normal Breath Sounds Neuro: Positive: Grossly Intact Skin: Positive: Bruising, Other (lesiosn BUE) Extremities: Present: upper extr. pulses. Absent: edema Results 06/10/21 04:59 06/10/21 04:59 CBC 06/10/21 Range/Units 04:59 WBC 3.9 L (4.5-11.0) K/mm3 RBC 3.53 L (3.65-5.03) M/mm3 Hgb 12.5 (11.8-15.2) gm/dl Hct 37.5 (35.5-45.6) % Plt Count 107 L (140-440) K/mm3 Lymph # (Auto) 0.2 L (1.2-5.4) K/mm3 [place] # (Auto) 0.4 (0.0-0.8) K/mm3 Eos # (Auto) 0.0 (0.0-0.4) K/mm3 Baso # (Auto) 0.0 (0.0-0.1) K/mm3 Comprehensive Metabolic Panel 06/10/21 Range/Units 04:59 Sodium 133 L (137-145) mmol/L Potassium 3.4 L (3.6-5.0) mmol/L Chloride 102.2 (98-107) mmol/L Carbon Dioxide 20 L (22-30) mmol/L BUN 7 L (9-20) mg/dL Creatinine 0.5 L (0.8-1.3) mg/dL Glucose 90 (75-100) mg/dL Calcium 7.7 L (8.4-10.2) mg/dL - Imaging and Cardiology Echo: pending EKG interpretations - Telemetry EKG Rhythm: Atrial Fibrillation - EKG Supraventricular dysrhythmia: atrial fibrillation Repolarization changes or abnormalities: nonspecific abnormality, ST segment, and/or T wave Assessment and Plan Patient is a 61-year-old male with past medical history of cirrhosis, depression, A. fib who presents to the ED on 06/08/2021 for complaint of hypotension and fall. Patient found to be in A. fib with RVR Status post fall Hypotension A. fib with RVR Lactic acidosis Hypocalcemia Hyponatremia Cirrhosis Depression Plan: EKG shows A. fib with RVR rate 139 with nonspecific T abnormalities. Patient denies any complaints of chest pain Obtain mag, TSH, LFTs Patient appears euvolemic on exam Echocardiogram pending Initiate amiodarone bolus and drip close monitoring LFTs Will initiate heparin drip for anticoagulation at this time. However due to patient's history of falls unclear if patient will be able to tolerate long-term anticoagulation Patient seen in conjunction with Dr. Hammonds who agrees with this plan of care - Patient Problems (1) Atrial fibrillation with RVR Current Visit: Yes Status: Acute (2) Hypocalcemia Current Visit: Yes Status: Acute (3) Hypotension Current Visit: Yes Status: Acute (4) Lactic acidosis Current Visit: Yes Status: Acute (5) Head injury Current Visit: No Status: Acute
[2021-06-10] MEDS ORDERED: HEPARIN 10,000 UNITS/10 ML VIAL IV NR (11:00)
[2021-06-10] MEDS ORDERED: AMIODARONE 900 MG in DEXTROSE 5% IN WATER 482 ML IV SCH (11:00)
[2021-06-10] MEDS: SODIUM CHLORIDE 0.9% 1000 ML 1,000 ML IV SCH (12:37)
[2021-06-10] MEDS: ACETAMINOPHEN 325 MG TAB PO PRN ×2 (12:46→21:50)
[2021-06-10 13:45] LABS: Hemoglobin 13.1 gm/dl (11.8-15.2)
[2021-06-10 13:49] LABS: INR 1.18 (0.87-1.13)
[2021-06-10 13:51] LABS: Partial Thromboplastin Time 30.6 Sec. (24.2-36.6)
[2021-06-10 13:57] LABS: Albumin 2.8 g/dL (3.9-5); Bilirubin,Direct 0.6 mg/dL (0-0.2)
[2021-06-10] MEDS ORDERED: HEPARIN 10,000 UNITS/10 ML VIAL IV PRN (14:00)
--- NOTE | 2021-06-10 14:06 | Consultation ---
History of Present Illness - Reason for Consult Consult date: 06/10/21 Reason for consult: from sperry - History of Present Psychiatric Illness The patient was seen today after frequent falls. During the evaluation, the patient is calm and cooperative. He is polite. He thanks me for coming to talk with him. The patient states he was having back problems and falling a lot is why he came to the hospital. The patient came from [place]. Staff here states he threatened staff at the [facility] during an appointment. He denies being admitted to a psych facility prior to this incident. He says the last time he saw a psychiatrist was 5 years ago. He says he suffers PTSD and goes to the [facility]. The patient denies being suicidal/homicidal. He says "I've never been suicidal in my life." He denies hallucinations of any kind. He says he lives with his spouse and has a great support system in her and the spouse's sister. The patient says he drinks 1 to 2 beers a day. He denies any problems with drinking or any illicit drug use. Denies hallucinations of any kind. PAST PSYCHIATRIC HISTORY Diagnoses: PTSD Suicide attempts or Self-harm behavior: denies Prior psychiatric hospitalizations: Denies Substance Abuse history: Denies Previous psychiatric medications tried: Denies Outpatient treatment: Denies PAST MEDICAL HISTORY: None reported Family Psychiatric History: None reported or documented SOCIAL HISTORY Marital Status: Living Arrangements: Lives with spouse Employment Status: Access to guns/weapons: Denies Education: History of Abuse: Denies Legal History: denies REVIEW OF SYSTEMS Constitutional: Negative for weight loss ENT: Negative for stridor Respiratory: Negative for cough or hemoptysis All other systems reviewed and are negative MENTAL STATUS EXAMINATION General Appearance and Behavior: Age appropriate, good hygiene, wearing appropriate clothes, good eye contact, cooperative, polite Cooperation: Participating/engaged, but Guarded Psychomotor Behavior: Psychomotor normal Mood: better Affect and affective range: congruent with stated mood Thought Process: goal directed Thought Content: None Speech: Normal tone and pace Suicidal Ideation: Denies Homicidal Ideation: Denies Hallucinations: Denies Delusions: None elicited Impulse Control: Limited Insight and Judgment: Limited insight and judgment Memory: Limited Attention: attentive Orientation: Alert, oriented Assessment and Plan Mental Health Evaluation Treatment Plan d/c 1013 Continued home Cymbalta Medical: Per primary Sitter: Defer to primary Disposition: Do not recommend acute psychiatric inpatient treatment Will sign off. Thanks Case staffed with Dr. Salazar Medications and Allergies Allergies Allergy/AdvReac Type Severity Reaction Status Date / Time No Known Allergies Allergy Verified 06/09/21 06:22 Home Medications Medication Instructions Recorded Confirmed Last Taken Type Colchicine 1 tab PO PRN 06/10/21 06/10/21 Unknown History Duloxetine HCl 30 mg PO DAILY 06/10/21 06/10/21 Unknown History Folic Acid 1 tab PO DAILY 06/10/21 06/10/21 Unknown History Active Meds: Active Medications Acetaminophen (Acetaminophen 325 Mg Tab) 650 mg PO Q4H PRN PRN Reason: Pain MILD(1-3)/Fever >100.5/GONSALES Last Admin: 06/10/21 12:46 Dose: 650 mg Bisacodyl (Bisacodyl 10 Mg Rect Supp) 10 mg [place] QDAY PRN PRN Reason: Constipation Heparin Sodium (Porcine) (Heparin 10,000 Units/10 Ml Vial) 3,000 unit 40 unit/kg (3000 unit) IV Q6H PRN PRN Reason: Anti-Xa Assay < 0.1 units/ml Sodium Chloride (Nacl 0.9% 1000 Ml) 1,000 mls @ 125 mls/hr IV DIRECT TOY Last Admin: 06/10/21 12:37 Dose: 125 mls/hr Heparin Sodium/Sodium Chloride (Heparin/ 0.45% Nacl-25,000 Unit/500 Ml) 25,000 unit in 500 mls @ 21 mls/hr IV TITR TOY; Protocol Amiodarone HCl 900 mg/ (Dextrose) 500 mls @ 33.333 mls/hr IV DIRECT TOY; Protocol Magnesium Hydroxide (Magnesium Hydroxide (Mom) Oral Liqd Udc) 30 ml PO Q4H PRN PRN Reason: Constipation Morphine Sulfate (Morphine 2 Mg/1 Ml Inj) 2 mg IV Q4H PRN PRN Reason: Pain, Moderate (4-6) Morphine Sulfate (Morphine 4 Mg/1 Ml Inj) 4 mg IV Q4H PRN PRN Reason: Pain , Severe (7-10) Ondansetron HCl (Ondansetron 4 Mg/2 Ml Inj) 4 mg IV Q8H PRN PRN Reason: Nausea And Vomiting Sodium Chloride (Sodium Chloride 0.9% 10 Ml Flush Syringe) 10 ml IV BID TOY Last Admin: 06/10/21 12:38 Dose: 10 ml Sodium Chloride (Sodium Chloride 0.9% 10 Ml Flush Syringe) 10 ml IV PRN PRN PRN Reason: LINE FLUSH Mental Status Exam - Vital signs Last Vital Signs Temp 100.1 F H 06/10/21 08:05 Pulse 74 06/10/21 08:05 Resp 22 06/10/21 08:05 BP 104/73 06/10/21 08:05 Pulse Ox 93 06/10/21 08:05 Results Result Diagrams: 06/10/21 13:20 06/10/21 04:59 Abnormal lab results 06/10/21 06/10/21 06/10/21 Range/Units 04:59 04:59 13:20 WBC 3.9 L (4.5-11.0) K/mm3 RBC 3.53 L (3.65-5.03) M/mm3 MCV 106 H (84-94) fl MCH 36 H (28-32) pg Plt Count 107 L (140-440) K/mm3 Lymph % (Auto) 6.2 L (13.4-35.0) % [place] % (Auto) 9.7 H (0.0-7.3) % Lymph # (Auto) 0.2 L (1.2-5.4) K/mm3 Seg Neutrophils % 81.8 H (40.0-70.0) % PT (12.2-14.9) Sec. INR (0.87-1.13) Sodium 133 L (137-145) mmol/L Potassium 3.4 L (3.6-5.0) mmol/L Carbon Dioxide 20 L (22-30) mmol/L BUN 7 L (9-20) mg/dL Creatinine 0.5 L (0.8-1.3) mg/dL Calcium 7.7 L (8.4-10.2) mg/dL Magnesium 1.40 L (1.7-2.3) mg/dL Total Bilirubin 1.60 H (0.1-1.2) mg/dL Direct Bilirubin 0.6 H (0-0.2) mg/dL Alkaline Phosphatase 200 H (35-129) units/L Total Protein 5.1 L (6.3-8.2) g/dL Albumin 2.8 L (3.9-5) g/dL 06/10/21 06/10/21 Range/Units 13:20 13:20 WBC (4.5-11.0) K/mm3 RBC (3.65-5.03) M/mm3 MCV (84-94) fl MCH (28-32) pg Plt Count 110 L (140-440) K/mm3 Lymph % (Auto) (13.4-35.0) % [place] % (Auto) (0.0-7.3) % Lymph # (Auto) (1.2-5.4) K/mm3 Seg Neutrophils % (40.0-70.0) % PT 16.4 H (12.2-14.9) Sec. INR 1.18 H (0.87-1.13) Sodium (137-145) mmol/L Potassium (3.6-5.0) mmol/L Carbon Dioxide (22-30) mmol/L BUN (9-20) mg/dL Creatinine (0.8-1.3) mg/dL Calcium (8.4-10.2) mg/dL Magnesium (1.7-2.3) mg/dL Total Bilirubin (0.1-1.2) mg/dL Direct Bilirubin (0-0.2) mg/dL Alkaline Phosphatase (35-129) units/L Total Protein (6.3-8.2) g/dL Albumin (3.9-5) g/dL All other labs normal.
[2021-06-10] MEDS ORDERED: DULOXETINE HCL PO SCH (14:15)
[2021-06-10] MEDS ORDERED: MAGNESIUM SULFATE 2 GM/50 ML BAG IV ONE (15:00)
[2021-06-10] MEDS: HEPARIN/ 0.45% NACL DRIP 25,000 UNIT/500 ML BAG IV SCH (15:13)
[2021-06-10] MEDS: DULoxetine 30 MG CAP PO SCH (16:45)
--- NOTE | 2021-06-10 17:53 | Electrocardiograph Report ---
[facility] Test Date: 2021-06-08 Test Time: 22:07:39 Pat Name: MARGOTH YUNG Department: Room: A453 Gender: M Caregiver Assisted Living: [facility]JIT : 1960 Requested By: BRE HERNANDEZ Order Number: [id number] Reading MD: Fredi Fernando Measurements Intervals [place] Rate: 115 P: [place]: QRS: 8 QRSD: 77 T: -13 QT: 325 QTc: 451 Interpretive Statements Atrial fibrillation Low voltage, extremity leads No previous ECG available for comparison Electronically Signed On 06-10-2021 17:52:35 EDT by Fredi Fernando
--- NOTE | 2021-06-10 18:10 | Electrocardiograph Report ---
[facility] Test Date: 2021-06-10 Test Time: 09:14:41 Pat Name: MARGOTH YUNG Department: Room: A453 Gender: M [employer] Inter[employer]ter: DIANA : 1960 Requested By: CHENCHO FARLEY Order Number: [id number] Reading MD: Fredi Fernando Measurements Intervals [place] Rate: 139 P: [place]: QRS: 40 QRSD: 69 T: -70 QT: 248 QTc: 378 Interpretive Statements Atrial fibrillation with rapid ventricular rate Low voltage, extremity and precordial leads Nonspecific T abnormalities, lateral leads Compared to ECG 06/08/2021 22:07:39 No significant change Electronically Signed On 06-10-2021 18:09:59 EDT by Fredi Fernando
[2021-06-11 06:21] LABS: Hematocrit 37.9 % (35.5-45.6); Hemoglobin 12.6 gm/dl (11.8-15.2); Mean Corpuscular HGB Conc 33 % (32-34); Mean Corpuscular Volume 106 fl (84-94); Red Blood Count 3.58 M/mm3 (3.65-5.03); Red Cell Distribution Width 14.8 % (13.2-15.2)
[2021-06-11 06:45] LABS: Blood Urea Nitrogen 5 mg/dL (9-20); Hemolysis Index 8
[2021-06-11 06:46] LABS: Platelet Count 92 K/mm3 (140-440)
[2021-06-11 06:48] LABS: BUN/Creatinine Ratio 10
[2021-06-11] MEDS: DULoxetine 30 MG CAP PO SCH (11:00)
--- NOTE | 2021-06-11 12:18 | Progress Note ---
Assessment and Plan Assessment and plan: #Hypotension resolved -Likely secondary to cirrhosis -Home blood pressure medications currently held -will continue to monitor continue #Atrial fibrillation with RVR -Continue heparin gtt -Patient with hypotension, making it difficult to control -Plan for DC cardioversion tomorrow -Cardiology following, assistance appreciated #Cirrhosis with ascites -Spironolactone and diuretics held due to hypotension -Likely secondary to alcohol abuse - no concern for SBP -Per patient he receives paracentesis every 2 weeks, will plan for paracentesis early next week #Suppurative phlebitis -Per nursing and patient pus expressed from right brachial vein with IV removal -Blood cultures ordered -Empiric vancomycin started -Right upper extremity AV Doppler ordered to evaluate for DVT #Thrombocytopenia -Plt 92 -likely secondary to cirrhosis -will continue to monitor #Leukopenia -Likely secondary to cirrhosis, will continue to monitor #Head injury/laceration -secondary to ground-level fall. -CT of the brain negative for acute findings #Posttraumatic stress disorder -continue Cymbalta -Psychiatry following, assistance appreciated #Advanced care planning -Disease education conducted, care plan discussed, diagnoses discussed, prognosis discussed, and patient acknowledges understanding with care plan -Time: +30 min #Lactic acidosis-resolved History Interval history: Documents overnight. Patient said Band-Aid off of wound on left arm and is bleeding from wound. Patient has no complaints at this time. Hospitalist Physical - Physical exam Narrative exam: GENERAL: Well-developed well-nourished. In no acute distress. HEENT: Head laceration healing appropriately. NECK: Supple. CHEST/LUNGS: CTAB on room air HEART/CARDIOVASCULAR: Irregular irregular rhythm. No murmur, rubs or gallops appreciated. ABDOMEN: +BS. NT/ND. SKIN: Ecchymoses and scabbing most prominent in bilateral upper extremities. NEURO: No focal motor deficit. Follows all commands. MUSCULOSKELETAL: No joint effusion EXTREMITIES: No cyanosis, clubbing or edema. PSYCH: Cooperative. - Constitutional Vitals: Temp Pulse Resp BP Pulse Ox 98.4 F 129 H 18 101/70 98 06/11/21 08:12 06/11/21 08:12 06/11/21 08:12 06/11/21 08:12 06/11/21 10:00 General appearance: Present: no acute distress Results - Labs CBC & Chem 7: 06/12/21 06:45 06/12/21 06:45 Labs: Laboratory Last Values WBC 2.5 K/mm3 (4.5-11.0) L 06/11/21 05:55 RBC 3.58 M/mm3 (3.65-5.03) L 06/11/21 05:55 Hgb 12.6 gm/dl (11.8-15.2) 06/11/21 05:55 Hct 37.9 % (35.5-45.6) 06/11/21 05:55 MCV 106 fl (84-94) H 06/11/21 05:55 MCH 35 pg (28-32) H 06/11/21 05:55 MCHC 33 % (32-34) 06/11/21 05:55 RDW 14.8 % (13.2-15.2) 06/11/21 05:55 Plt Count 92 K/mm3 (140-440) L 06/11/21 05:55 Lymph % (Auto) 6.2 % (13.4-35.0) L 06/10/21 04:59 [place] % (Auto) 9.7 % (0.0-7.3) H 06/10/21 04:59 Eos % (Auto) 1.1 % (0.0-4.3) 06/10/21 04:59 Baso % (Auto) 1.2 % (0.0-1.8) 06/10/21 04:59 Lymph # (Auto) 0.2 K/mm3 (1.2-5.4) L 06/10/21 04:59 [place] # (Auto) 0.4 K/mm3 (0.0-0.8) 06/10/21 04:59 Eos # (Auto) 0.0 K/mm3 (0.0-0.4) 06/10/21 04:59 Baso # (Auto) 0.0 K/mm3 (0.0-0.1) 06/10/21 04:59 Seg Neutrophils % 81.8 % (40.0-70.0) H 06/10/21 04:59 Seg Neutrophils # 3.2 K/mm3 (1.8-7.7) 06/10/21 04:59 PT 16.4 Sec. (12.2-14.9) H 06/10/21 13:20 INR 1.18 (0.87-1.13) H 06/10/21 13:20 APTT 30.6 Sec. (24.2-36.6) 06/10/21 13:20 Heparin Anti-Xa Level 0.25 U.I./ml (0.3-0.7) L 06/11/21 05:55 Sodium 131 mmol/L (137-145) L 06/11/21 05:55 Potassium 3.5 mmol/L (3.6-5.0) L 06/11/21 05:55 Chloride 101.1 mmol/L (98-107) 06/11/21 05:55 Carbon Dioxide 21 mmol/L (22-30) L 06/11/21 05:55 Anion Gap 12 mmol/L 06/11/21 05:55 BUN 5 mg/dL (9-20) L 06/11/21 05:55 Creatinine 0.5 mg/dL (0.8-1.3) L 06/11/21 05:55 Estimated GFR > 60 ml/min 06/11/21 05:55 BUN/Creatinine Ratio 10 % 06/11/21 05:55 Glucose 87 mg/dL (75-100) 06/11/21 05:55 Lactic Acid 1.50 mmol/L (0.7-2.0) 06/09/21 00:14 Calcium 8.0 mg/dL (8.4-10.2) L 06/11/21 05:55 Magnesium 1.80 mg/dL (1.7-2.3) 06/11/21 05:55 Total Bilirubin 1.60 mg/dL (0.1-1.2) H 06/10/21 13:20 Direct Bilirubin 0.6 mg/dL (0-0.2) H 06/10/21 13:20 Indirect Bilirubin 1.0 mg/dL 06/10/21 13:20 AST 31 units/L (5-40) 06/10/21 13:20 ALT 25 units/L (7-56) 06/10/21 13:20 Alkaline Phosphatase 200 units/L (35-129) H 06/10/21 13:20 Total Protein 5.1 g/dL (6.3-8.2) L 06/10/21 13:20 Albumin 2.8 g/dL (3.9-5) L 06/10/21 13:20 Albumin/Globulin Ratio 1.2 % 06/10/21 13:20 TSH 1.640 mlU/mL (0.270-4.200) 06/10/21 13:20 Urine Color [place] (Yellow) 06/09/21 19:22 Urine Turbidity Clear (Clear) 06/09/21 19:22 Urine pH 5.0 (5.0-7.0) 06/09/21 19:22 Ur Specific [place] 1.017 (1.003-1.030) 06/09/21 19:22 Urine Protein <15 mg/dl mg/dL (Negative) 06/09/21 19:22 Urine Glucose (UA) Neg mg/dL (Negative) 06/09/21 19: Urine Ketones Neg mg/dL (Negative) 06/09/21 19:22 Urine Blood Neg (Negative) 06/09/21 19:22 Urine Nitrite Neg (Negative) 06/09/21 19:22 Urine Bilirubin Neg (Negative) 06/09/21 19:22 Urine Urobilinogen 2.0 mg/dL (<2.0) 06/09/21 19:22 Ur Leukocyte Esterase Neg (Negative) 06/09/21 19:22 Urine WBC (Auto) < 1.0 /HPF (0.0-6.0) 06/09/21 19:22 Urine RBC (Auto) < 1.0 /HPF (0.0-6.0) 06/09/21 19:22 U Epithel Cells (Auto) < 1.0 /HPF (0-13.0) 06/09/21 19:22 Urine Mucus Few /HPF 06/09/21 19:22 Microbiology: Microbiology 06/10/21 13:24 Peripheral/Venous Blood Culture - Preliminary Culture in Progress 06/10/21 13:20 Peripheral/Venous Blood Culture - Preliminary Culture in Progress Adams/IV: Voiding Method Bedside Commode Active Medications - Current Medications Current Medications: Generic Name Dose Route Start Last Admin Trade Name Freq PRN Reason Stop Dose Admin Acetaminophen 650 mg 06/09/21 06:19 06/10/21 21:50 Acetaminophen 325 Mg Tab PO 650 mg Q4H PRN Administration Pain MILD(1-3)/Fever >100.5/GONSALES Bisacodyl 10 mg 06/09/21 13:39 Bisacodyl 10 Mg Rect Supp [place] QDAY PRN Constipation Digoxin 0.25 mg 06/11/21 12:00 Digoxin 0.5 Mg/2 Ml Inj IV 06/12/21 06:01 Q6H TOY Duloxetine HCl 30 mg 06/10/21 15:00 06/11/21 11:00 Duloxetine 30 Mg Cap PO 30 mg QDAY TOY Administration Heparin Sodium (Porcine) 3,000 unit 06/10/21 14:00 Heparin 10,000 Units/10 Ml Vial 40 unit/kg (3000 unit) IV Q6H PRN Anti-Xa Assay < 0.1 units/ml Sodium Chloride 1,000 mls @ 125 mls/hr 06/09/21 06:30 06/10/21 12:37 Nacl 0.9% 1000 Ml IV 125 mls/hr DIRECT TOY Administration Heparin Sodium/Sodium Chloride 25,000 unit in 500 mls @ 21 mls/hr 06/10/21 11:30 06/11/21 07:04 Heparin/ 0.45% Nacl-25,000 Unit/500 Ml IV 900 units/hr TITR TOY 18 mls/hr Titration Protocol 1,050 UNITS/HR Amiodarone HCl 900 mg/ 500 mls @ 33.333 mls/hr 06/10/21 11:00 06/10/21 23:10 Dextrose IV 0.5 mg/min DIRECT TOY 16.667 mls/hr Titration Protocol 1 MG/MIN Magnesium Hydroxide 30 ml 06/09/21 06:19 Magnesium Hydroxide (Mom) Oral Liqd Udc PO Q4H PRN Constipation Morphine Sulfate 2 mg 06/09/21 06:19 Morphine 2 Mg/1 Ml Inj IV Q4H PRN Pain, Moderate (4-6) Morphine Sulfate 4 mg 06/09/21 06:19 Morphine 4 Mg/1 Ml Inj IV Q4H PRN Pain , Severe (7-10) Ondansetron HCl 4 mg 06/09/21 06:19 Ondansetron 4 Mg/2 Ml Inj IV Q8H PRN Nausea And Vomiting Sodium Chloride 10 ml 06/09/21 10:00 06/11/21 11:00 Sodium Chloride 0.9% 10 Ml Flush Syringe IV 10 ml BID TOY Administration Sodium Chloride 10 ml 06/09/21 06:19 Sodium Chloride 0.9% 10 Ml Flush Syringe IV PRN PRN LINE FLUSH
[2021-06-11] MEDS ORDERED: VANCOMYCIN PHARMACY TO DOSE IV SCH (13:00)
--- NOTE | 2021-06-11 14:40 | Progress Note ---
Assessment and Plan Patient is a 61-year-old male with past medical history of cirrhosis, depression, A. fib who presents to the ED on 06/08/2021 for complaint of hypotension and fall. Patient found to be in A. fib with RVR Status post fall Hypotension A. fib with RVR Lactic acidosis Hypocalcemia Hyponatremia Cirrhosis Depression Echo 06/10/2021-EF 65 to 70%. Right ventricle is mildly dilated. Right ventricle systolic function is normal left atrium mildly dilated. Large right pleural effusion. Left ventricular diastolic function is indeterminate. Patient is tachycardic Plan: EKG shows A. fib with RVR rate 139 with nonspecific T abnormalities. Patient denies any complaints of chest pain Patient appears euvolemic on exam Echocardiogram results noted above Continue amiodarone drip close monitoring LFTs Continue heparin drip for anticoagulation at this time. However due to patient's history of falls unclear if patient will be able to tolerate long-term anticoagulation Patient remains in A. fib with RVR will initiate IV digoxin 0.25 mg every 6 hours x4 doses If patient remains in A. fib with RVR after treatment with dig we will plan for MAGED cardioversion. Patient to be n.p.o. after midnight Patient seen in conjunction with Dr. Hammonds who agrees with this plan of care - Patient Problems (1) Atrial fibrillation with RVR Current Visit: Yes Status: Acute (2) Hypocalcemia Current Visit: Yes Status: Acute (3) Hypotension Current Visit: Yes Status: Acute (4) Lactic acidosis Current Visit: Yes Status: Acute (5) Head injury Current Visit: No Status: Acute Subjective Date of service: 06/11/21 Principal diagnosis: A. fib with RVR Interval history: Patient resting in bed in no acute distress Patient remains in A. fib with RVR rate from 120s to 140s Objective Vital Signs Temp Pulse Resp BP Pulse Ox 06/11/21 10:00 98 06/11/21 08:12 98.4 F 129 H 18 101/70 97 06/11/21 04:25 98.3 F 128 H 16 95/74 97 06/10/21 22:00 98 06/10/21 19:53 99.6 F 128 H 18 97/63 96 06/10/21 18:00 98 06/10/21 16:46 99.4 F 124 H 22 117/83 93 - Physical Examination HEENT: Positive: PERRL, Normocephaly Neck: Positive: trachea midline Cardiac: Positive: irregularly irregular, Tachycardia Lungs: Positive: Normal Breath Sounds Neuro: Positive: Grossly Intact Abdomen: Positive: Soft Skin: Positive: Bruising, Other (lesiosn BUE) Extremities: Present: upper extr. pulses. Absent: edema - Labs and Meds CBC 06/11/21 Range/Units 05:55 WBC 2.5 L (4.5-11.0) K/mm3 RBC 3.58 L (3.65-5.03) M/mm3 Hgb 12.6 (11.8-15.2) gm/dl Hct 37.9 (35.5-45.6) % Plt Count 92 L (140-440) K/mm3 Comprehensive Metabolic Panel 06/11/21 Range/Units 05:55 Sodium 131 L (137-145) mmol/L Potassium 3.5 L (3.6-5.0) mmol/L Chloride 101.1 (98-107) mmol/L Carbon Dioxide 21 L (22-30) mmol/L BUN 5 L (9-20) mg/dL Creatinine 0.5 L (0.8-1.3) mg/dL Glucose 87 (75-100) mg/dL Calcium 8.0 L (8.4-10.2) mg/dL - Imaging and Cardiology Echo: report reviewed - Telemetry EKG Rhythm: Atrial Fibrillation - EKG Supraventricular dysrhythmia: atrial fibrillation Repolarization changes or abnormalities: nonspecific abnormality, ST segment, and/or T wave
[2021-06-11] MEDS: VANCOMYCIN 1,500 MG in SODIUM CHLORIDE 0.9% 500 ML 500 ML IV SCH (15:54)
[2021-06-11] MEDS: DIGOXIN 0.5 MG/2 ML INJ IV SCH ×2 (15:54→21:34)
--- NOTE | 2021-06-11 17:55 | Vascular Lab Report ---
DUPLEX DOPPLER UPPER EXTREMITY VENOUS, RIGHT INDICATION / CLINICAL INFORMATION: phlebitis, r/o DVT. TECHNIQUE: Duplex doppler imaging was performed through the veins of the right upper extremity using venous compression and other maneuvers. COMPARISON: None available. FINDINGS: RIGHT INTERNAL JUGULAR VEIN: Negative. RIGHT SUBCLAVIAN VEIN: Negative. RIGHT AXILLARY VEIN: Negative. RIGHT BRACHIAL VEIN: Negative. RIGHT FOREARM VEINS: Negative. RIGHT BASILIC VEIN (SUPERFICIAL): Occlusive thrombus ADDITIONAL FINDINGS: Occlusive superficial thrombus within the cephalic vein. IMPRESSION: 1. No sonographic evidence for deep venous thrombosis. 2. Occlusive superficial thrombus is visualized within the right basilic and cephalic veins. Scribed by: Kiarra Coppola RDMS, MARNI, MANI Scribed: 06/11/2021 3:13 PM I have reviewed the images, agree with this report, and edited this report as needed. Signer Name: Peter Hawk MD Signed: 06/11/2021 5:51 PM Workstation Name: [id number]
[2021-06-11] MEDS: ACETAMINOPHEN 325 MG TAB PO PRN (21:34)
[2021-06-11] MEDS: SODIUM CHLORIDE 0.9% 1000 ML 1,000 ML IV SCH (21:37)
[2021-06-11] MEDS: HEPARIN/ 0.45% NACL DRIP 25,000 UNIT/500 ML BAG IV SCH (21:37)
[2021-06-12] MEDS: VANCOMYCIN 1,500 MG in SODIUM CHLORIDE 0.9% 500 ML 500 ML IV SCH ×2 (01:06→13:34)
[2021-06-12] MEDS: DIGOXIN 0.5 MG/2 ML INJ IV SCH ×2 (01:06→06:34)
[2021-06-12 07:18] LABS: Hematocrit 40.4 % (35.5-45.6); Mean Corpuscular HGB Conc 35 % (32-34); Mean Corpuscular Volume 104 fl (84-94); Platelet Count 109 K/mm3 (140-440); Red Blood Count 3.88 M/mm3 (3.65-5.03); Red Cell Distribution Width 14.6 % (13.2-15.2)
--- NOTE | 2021-06-12 07:32 | Progress Note ---
Assessment and Plan Assessment and plan: #Hypotension-resolved -Likely secondary to cirrhosis -Home blood pressure medications currently held -will continue to monitor continue #Atrial fibrillation with RVR -Continue heparin gtt -Patient with hypotension, making it difficult to control -Cardioversion unable to be completed secondary to esophageal varices history -Will start amiodarone drip -Cardiology following, assistance appreciated #Cirrhosis with ascites #Esophageal varices -Spironolactone, propranolol and diuretics held due to hypotension -Likely secondary to alcohol abuse -no concern for SBP -plan for paracentesis early next week #Hepatic encephalopathy -Patient with waxing and waning mental status -We will start lactulose and titrate to at least 3 bowel movements per day #Suppurative thrombophlebitis -Per nursing and patient pus expressed from right brachial vein with IV removal -Blood cultures: 02/17 cultures growing GPC -continue vancomycin -Right upper extremity Doppler showed cclusive superficial thrombus within the right basilic and cephalic vein -Supportive care #Thrombocytopenia- stable -likely secondary to cirrhosis -will continue to monitor #Leukopenia -Likely secondary to cirrhosis, will continue to monitor #Head injury/laceration -secondary to ground-level fall. -CT of the brain negative for acute findings #Posttraumatic stress disorder -continue Cymbalta -Psychiatry following, assistance appreciated #Advanced care planning -Disease education conducted, care plan discussed, diagnoses discussed, prognosis discussed with the patients Jolly who acknowledges understanding with care plan. -Time: +30 min #Lactic acidosis-resolved History Interval history: Patient alert to self, but confused this morning. Reports that he is "seeing the light". Denies pain.. Hospitalist Physical - Physical exam Narrative exam: GENERAL: Well-developed well-nourished. In no acute distress. CHEST/LUNGS: CTAB on room air HEART/CARDIOVASCULAR: Irregular irregular rhythm. No murmur, rubs or gallops appreciated. ABDOMEN: +BS. NT. Distended belly, ascites without fluid wave SKIN: Ecchymoses and scabbing most prominent in bilateral upper extremities. NEURO: No focal motor deficit. Follows all commands. MUSCULOSKELETAL: No joint effusion EXTREMITIES: No cyanosis, clubbing or edema. PSYCH: Cooperative. - Constitutional Vitals: Temp Pulse Resp BP Pulse Ox 97.3 F L 78 18 116/82 97 06/12/21 03:43 06/12/21 03:43 06/12/21 03:43 06/12/21 03:43 06/12/21 03:43 General appearance: Present: no acute distress Results - Labs CBC & Chem 7: 06/12/21 06:45 06/12/21 06:45 Labs: Laboratory Last Values WBC 2.8 K/mm3 (4.5-11.0) L 06/12/21 06:45 RBC 3.88 M/mm3 (3.65-5.03) 06/12/21 06:45 Hgb 14.0 gm/dl (11.8-15.2) 06/12/21 06:45 Hct 40.4 % (35.5-45.6) 06/12/21 06:45 MCV 104 fl (84-94) H 06/12/21 06:45 MCH 36 pg (28-32) H 06/12/21 06:45 MCHC 35 % (32-34) H 06/12/21 06:45 RDW 14.6 % (13.2-15.2) 06/12/21 06:45 Plt Count 109 K/mm3 (140-440) L 06/12/21 06:45 Lymph % (Auto) 6.2 % (13.4-35.0) L 06/10/21 04:59 [place] % (Auto) 9.7 % (0.0-7.3) H 06/10/21 04:59 Eos % (Auto) 1.1 % (0.0-4.3) 06/10/21 04:59 Baso % (Auto) 1.2 % (0.0-1.8) 06/10/21 04:59 Lymph # (Auto) 0.2 K/mm3 (1.2-5.4) L 06/10/21 04:59 [place] # (Auto) 0.4 K/mm3 (0.0-0.8) 06/10/21 04:59 Eos # (Auto) 0.0 K/mm3 (0.0-0.4) 06/10/21 04:59 Baso # (Auto) 0.0 K/mm3 (0.0-0.1) 06/10/21 04:59 Seg Neutrophils % 81.8 % (40.0-70.0) H 06/10/21 04:59 Seg Neutrophils # 3.2 K/mm3 (1.8-7.7) 06/10/21 04:59 PT 16.4 Sec. (12.2-14.9) H 06/10/21 13:20 INR 1.18 (0.87-1.13) H 06/10/21 13:20 APTT 30.6 Sec. (24.2-36.6) 06/10/21 13:20 Heparin Anti-Xa Level 0.25 U.I./ml (0.3-0.7) L 06/11/21 05:55 Sodium 131 mmol/L (137-145) L 06/11/21 05:55 Potassium 3.5 mmol/L (3.6-5.0) L 06/11/21 05:55 Chloride 101.1 mmol/L (98-107) 06/11/21 05:55 Carbon Dioxide 21 mmol/L (22-30) L 06/11/21 05:55 Anion Gap 12 mmol/L 06/11/21 05:55 BUN 5 mg/dL (9-20) L 06/11/21 05:55 Creatinine 0.5 mg/dL (0.8-1.3) L 06/11/21 05:55 Estimated GFR > 60 ml/min 06/11/21 05:55 BUN/Creatinine Ratio 10 % 06/11/21 05:55 Glucose 87 mg/dL (75-100) 06/11/21 05:55 Lactic Acid 1.50 mmol/L (0.7-2.0) 06/09/21 00:14 Calcium 8.0 mg/dL (8.4-10.2) L 06/11/21 05:55 Magnesium 1.80 mg/dL (1.7-2.3) 06/11/21 05:55 Total Bilirubin 1.60 mg/dL (0.1-1.2) H 06/10/21 13:20 Direct Bilirubin 0.6 mg/dL (0-0.2) H 06/10/21 13:20 Indirect Bilirubin 1.0 mg/dL 06/10/21 13:20 AST 31 units/L (5-40) 06/10/21 13:20 ALT 25 units/L (7-56) 06/10/21 13:20 Alkaline Phosphatase 200 units/L (35-129) H 06/10/21 13:20 Total Protein 5.1 g/dL (6.3-8.2) L 06/10/21 13:20 Albumin 2.8 g/dL (3.9-5) L 06/10/21 13:20 Albumin/Globulin Ratio 1.2 % 06/10/21 13:20 TSH 1.640 mlU/mL (0.270-4.200) 06/10/21 13:20 Urine Color [place] (Yellow) 06/09/21 19:22 Urine Turbidity Clear (Clear) 06/09/21 19:22 Urine pH 5.0 (5.0-7.0) 06/09/21 19: Ur Specific [place] 1.017 (1.003-1.030) 06/09/21 19: Urine Protein <15 mg/dl mg/dL (Negative) 06/09/21 19:22 Urine Glucose (UA) Neg mg/dL (Negative) 06/09/21 19: Urine Ketones Neg mg/dL (Negative) 06/09/21 19:22 Urine Blood Neg (Negative) 06/09/21 19:22 Urine Nitrite Neg (Negative) 06/09/21 19:22 Urine Bilirubin Neg (Negative) 06/09/21 19:22 Urine Urobilinogen 2.0 mg/dL (<2.0) 06/09/21 19:22 Ur Leukocyte Esterase Neg (Negative) 06/09/21 19:22 Urine WBC (Auto) < 1.0 /HPF (0.0-6.0) 06/09/21 19:22 Urine RBC (Auto) < 1.0 /HPF (0.0-6.0) 06/09/21 19:22 U Epithel Cells (Auto) < 1.0 /HPF (0-13.0) 06/09/21 19:22 Urine Mucus Few /HPF 06/09/21 19:22 Microbiology: Microbiology 06/10/21 13:24 Peripheral/Venous Blood Culture - Preliminary 06/10/21 13:20 Peripheral/Venous Blood Culture - Preliminary NO GROWTH AFTER 24 HOURS Adams/IV: Voiding Method Urinal Active Medications - Current Medications Current Medications: Generic Name Dose Route Start Last Admin Trade Name Freq PRN Reason Stop Dose Admin Acetaminophen 650 mg 06/09/21 06:19 06/11/21 21:34 Acetaminophen 325 Mg Tab PO 650 mg Q4H PRN Administration Pain MILD(1-3)/Fever >100.5/GONSALES Bisacodyl 10 mg 06/09/21 13:39 Bisacodyl 10 Mg Rect Supp [place] QDAY PRN Constipation Duloxetine HCl 30 mg 06/10/21 15:00 06/11/21 11:00 Duloxetine 30 Mg Cap PO 30 mg QDAY TOY Administration Heparin Sodium (Porcine) 3,000 unit 06/10/21 14:00 Heparin 10,000 Units/10 Ml Vial 40 unit/kg (3000 unit) IV Q6H PRN Anti-Xa Assay < 0.1 units/ml Sodium Chloride 1,000 mls @ 125 mls/hr 06/09/21 06:30 06/11/21 21:37 Nacl 0.9% 1000 Ml IV 125 mls/hr DIRECT TOY Administration Heparin Sodium/Sodium Chloride 25,000 unit in 500 mls @ 21 mls/hr 06/10/21 11:30 06/11/21 21:37 Heparin/ 0.45% Nacl-25,000 Unit/500 Ml IV 900 units/hr TITR TOY 18 mls/hr Administration Protocol 1,050 UNITS/HR Amiodarone HCl 900 mg/ 500 mls @ 33.333 mls/hr 06/10/21 11:00 06/10/21 23:10 Dextrose IV 0.5 mg/min DIRECT TOY 16.667 mls/hr Titration Protocol 1 MG/MIN Vancomycin HCl 1,500 mg/ 530 mls @ 265 mls/hr 06/11/21 14:00 06/12/21 01:06 Sodium Chloride IV 265 mls/hr Q12H TOY Administration Magnesium Hydroxide 30 ml 06/09/21 06:19 Magnesium Hydroxide (Mom) Oral Liqd Udc PO Q4H PRN Constipation Morphine Sulfate 2 mg 06/09/21 06:19 Morphine 2 Mg/1 Ml Inj IV Q4H PRN Pain, Moderate (4-6) Morphine Sulfate 4 mg 06/09/21 06:19 Morphine 4 Mg/1 Ml Inj IV Q4H PRN Pain , Severe (7-10) Ondansetron HCl 4 mg 06/09/21 06:19 Ondansetron 4 Mg/2 Ml Inj IV Q8H PRN Nausea And Vomiting Sodium Chloride 10 ml 06/09/21 10:00 06/11/21 21:35 Sodium Chloride 0.9% 10 Ml Flush Syringe IV 10 ml BID TOY Administration Sodium Chloride 10 ml 06/09/21 06:19 Sodium Chloride 0.9% 10 Ml Flush Syringe IV PRN PRN LINE FLUSH
[2021-06-12 07:38] LABS: Blood Urea Nitrogen 7 mg/dL (9-20); Calcium 8.5 mg/dL (8.4-10.2); Hemolysis Index 6
[2021-06-12 07:40] LABS: BUN/Creatinine Ratio 14
[2021-06-12] MEDS ORDERED: BENZOCAINE 20% TOP SPRAY 0.5 ML UNIT DOSE MM NR (09:30)
[2021-06-12] MEDS: DULoxetine 30 MG CAP PO SCH (11:08)
[2021-06-12] MEDS ORDERED: AMIODARONE 150 MG in DEXTROSE 5% IN WATER 97 ML IV ONE (12:08)
[2021-06-12] MEDS: AMIODARONE 900 MG in DEXTROSE 5% IN WATER 482 ML IV SCH (12:57)
--- NOTE | 2021-06-12 14:04 | Progress Note ---
Assessment and Plan Patient is a 61-year-old male with past medical history of cirrhosis, depression, A. fib who presents to the ED on 06/08/2021 for complaint of hypotension and fall. Patient found to be in A. fib with RVR Status post fall Hypotension A. fib with RVR Lactic acidosis Hypocalcemia Hyponatremia Cirrhosis Depression Echo 06/10/2021-EF 65 to 70%. Right ventricle is mildly dilated. Right ventricle systolic function is normal left atrium mildly dilated. Large right pleural effusion. Left ventricular diastolic function is indeterminate. Patient is tachycardic Plan: Patient remains in A. fib with RVR. MAGED cardioversion canceled today, patient's informed staff that patient has a history of esophageal varices Was informed by nurse today that patient's amiodarone drip was set at the long rate. Instead of rate being set at 0.5 rate was actually set at 0.0005 Will rebolus patient with amiodarone reinitiate amiodarone drip Continue heparin drip for anticoagulation at this time. However due to patient's history of falls unclear if patient will be able to tolerate long-term anticoagulation Patient seen in conjunction with Dr. Hammonds who agrees with this plan of care - Patient Problems (1) Atrial fibrillation with RVR Current Visit: Yes Status: Acute (2) Hypocalcemia Current Visit: Yes Status: Acute (3) Hypotension Current Visit: Yes Status: Acute (4) Lactic acidosis Current Visit: Yes Status: Acute (5) Head injury Current Visit: No Status: Acute Subjective Date of service: 06/12/21 Principal diagnosis: A. fib with RVR Interval history: Patient resting in bed in no acute distress Patient remains in A. fib with RVR rate from 110s to 140s Objective Vital Signs Temp Pulse Resp BP Pulse Ox 06/12/21 08:45 98 06/12/21 07:45 98.2 F 78 18 108/79 95 06/12/21 03:43 97.3 F L 78 18 116/82 97 06/11/21 23:36 98.6 F 68 16 104/69 91 06/11/21 22:00 98 06/11/21 19:47 98.5 F 113 H 16 115/77 97 06/11/21 15:58 97.5 F L 111 H 18 112/80 98 06/11/21 15:54 129 H - Physical Examination HEENT: Positive: PERRL, Normocephaly Neck: Positive: trachea midline Cardiac: Positive: irregularly irregular, Tachycardia Lungs: Positive: Normal Breath Sounds Neuro: Positive: Grossly Intact Abdomen: Positive: Soft Skin: Positive: Bruising, Other (lesiosn BUE) Extremities: Present: upper extr. pulses. Absent: edema - Labs and Meds CBC 06/12/21 Range/Units 06:45 WBC 2.8 L (4.5-11.0) K/mm3 RBC 3.88 (3.65-5.03) M/mm3 Hgb 14.0 (11.8-15.2) gm/dl Hct 40.4 (35.5-45.6) % Plt Count 109 L (140-440) K/mm3 Comprehensive Metabolic Panel 06/12/21 Range/Units 06:45 Sodium 128 L (137-145) mmol/L Potassium 3.5 L (3.6-5.0) mmol/L Chloride 99.8 (98-107) mmol/L Carbon Dioxide 17 L (22-30) mmol/L BUN 7 L (9-20) mg/dL Creatinine 0.5 L (0.8-1.3) mg/dL Glucose 84 (75-100) mg/dL Calcium 8.5 (8.4-10.2) mg/dL - Imaging and Cardiology Echo: report reviewed - Telemetry EKG Rhythm: Atrial Fibrillation - EKG Supraventricular dysrhythmia: atrial fibrillation Repolarization changes or abnormalities: nonspecific abnormality, ST segment, and/or T wave
[2021-06-12] MEDS: LACTULOSE 20 GM/30 ML ORAL LIQD PO SCH (17:27)
[2021-06-12] MEDS: PANTOPRAZOLE 40 MG TAB PO SCH (17:27)
[2021-06-12] MEDS: HEPARIN/ 0.45% NACL DRIP 25,000 UNIT/500 ML BAG IV SCH (21:24)
[2021-06-13] MEDS: LACTULOSE 20 GM/30 ML ORAL LIQD PO SCH ×3 (00:20→16:34)
[2021-06-13] MEDS: VANCOMYCIN 1,500 MG in SODIUM CHLORIDE 0.9% 500 ML 500 ML IV SCH ×2 (03:25→13:40)
[2021-06-13 07:29] LABS: Hematocrit 39.7 % (35.5-45.6); Hemoglobin 13.7 gm/dl (11.8-15.2); Mean Corpuscular HGB Conc 35 % (32-34); Mean Corpuscular Volume 104 fl (84-94); Platelet Count 100 K/mm3 (140-440); Red Blood Count 3.82 M/mm3 (3.65-5.03); Red Cell Distribution Width 14.8 % (13.2-15.2)
--- NOTE | 2021-06-13 07:52 | Progress Note ---
Assessment and Plan Assessment and plan: #Hypotension-improved -Likely secondary to cirrhosis -Home blood pressure medications currently held -will continue to monitor continue #Atrial fibrillation with RVR-improving -Continue heparin gtt -Cardioversion unable to be completed secondary to esophageal varices history -Continue amiodarone drip -Cardiology following, assistance appreciated #Cirrhosis with ascites #Esophageal varices -Spironolactone, propranolol and diuretics held due to hypotension -Likely secondary to alcohol abuse -no concern for SBP -plan for paracentesis early next week #Hepatic encephalopathy -Patient with waxing and waning mental status -Patient currently refusing to take medications -Continue lactulose and titrate to at least 3 bowel movements per day #Suppurative thrombophlebitis -Per nursing and patient pus expressed from right brachial vein with IV removal -Blood cultures: 02/17 cultures growing staph aureus -Repeat blood cultures pending -continue vancomycin -Right upper extremity Doppler showed cclusive superficial thrombus within the right basilic and cephalic vein -Supportive care #Thrombocytopenia- stable -likely secondary to cirrhosis -will continue to monitor #Leukopenia -Likely secondary to cirrhosis, will continue to monitor #Head injury/laceration -secondary to ground-level fall. -CT of the brain negative for acute findings #Posttraumatic stress disorder -continue Cymbalta -Psychiatry following, assistance appreciated #Advanced care planning -Disease education conducted, care plan discussed, diagnoses discussed, prognosis discussed with the patients Jolly who acknowledges understanding with care plan. -Time: +30 min #Lactic acidosis-resolved History Interval history: Patient alert to self. Patient difficult to reorient during questioning. Denies pain and abdominal discomfort. Hospitalist Physical - Physical exam Narrative exam: GENERAL: Well-developed well-nourished. In no acute distress. CHEST/LUNGS: CTAB on room air HEART/CARDIOVASCULAR: Irregular irregular rhythm. No murmur, rubs or gallops appreciated. ABDOMEN: +BS. NT. Distended belly, ascites without fluid wave SKIN: Ecchymoses and scabbing most prominent in bilateral upper extremities. NEURO: No focal motor deficit. Follows all commands. MUSCULOSKELETAL: No joint effusion EXTREMITIES: No cyanosis, clubbing or edema. PSYCH: Pressured speech. Alert to self. - Constitutional Vitals: Temp Pulse Resp BP Pulse Ox 97.8 F 91 H 16 120/94 97 06/13/21 03:45 06/13/21 03:45 06/13/21 03:45 06/13/21 03:45 06/13/21 03:45 General appearance: Present: no acute distress Results - Labs CBC & Chem 7: 06/13/21 06:34 06/13/21 06:34 Labs: Laboratory Last Values WBC 3.5 K/mm3 (4.5-11.0) L 06/13/21 06:34 RBC 3.82 M/mm3 (3.65-5.03) 06/13/21 06:34 Hgb 13.7 gm/dl (11.8-15.2) 06/13/21 06:34 Hct 39.7 % (35.5-45.6) 06/13/21 06:34 MCV 104 fl (84-94) H 06/13/21 06:34 MCH 36 pg (28-32) H 06/13/21 06:34 MCHC 35 % (32-34) H 06/13/21 06:34 RDW 14.8 % (13.2-15.2) 06/13/21 06:34 Plt Count 100 K/mm3 (140-440) L 06/13/21 06:34 Lymph % (Auto) 6.2 % (13.4-35.0) L 06/10/21 04:59 [place] % (Auto) 9.7 % (0.0-7.3) H 06/10/21 04:59 Eos % (Auto) 1.1 % (0.0-4.3) 06/10/21 04:59 Baso % (Auto) 1.2 % (0.0-1.8) 06/10/21 04:59 Lymph # (Auto) 0.2 K/mm3 (1.2-5.4) L 06/10/21 04:59 [place] # (Auto) 0.4 K/mm3 (0.0-0.8) 06/10/21 04:59 Eos # (Auto) 0.0 K/mm3 (0.0-0.4) 06/10/21 04:59 Baso # (Auto) 0.0 K/mm3 (0.0-0.1) 06/10/21 04:59 Seg Neutrophils % 81.8 % (40.0-70.0) H 06/10/21 04:59 Seg Neutrophils # 3.2 K/mm3 (1.8-7.7) 06/10/21 04:59 PT 16.4 Sec. (12.2-14.9) H 06/10/21 13:20 INR 1.18 (0.87-1.13) H 06/10/21 13:20 APTT 30.6 Sec. (24.2-36.6) 06/10/21 13:20 Heparin Anti-Xa Level < 0.10 U.I./ml (0.3-0.7) L 06/12/21 20:43 Sodium 128 mmol/L (137-145) L 06/12/21 06:45 Potassium 3.5 mmol/L (3.6-5.0) L 06/12/21 06:45 Chloride 99.8 mmol/L (98-107) 06/12/21 06:45 Carbon Dioxide 17 mmol/L (22-30) L 06/12/21 06:45 Anion Gap 15 mmol/L 06/12/21 06:45 BUN 7 mg/dL (9-20) L 06/12/21 06:45 Creatinine 0.5 mg/dL (0.8-1.3) L 06/12/21 06:45 Estimated GFR > 60 ml/min 06/12/21 06:45 BUN/Creatinine Ratio 14 % 06/12/21 06:45 Glucose 84 mg/dL (75-100) 06/12/21 06:45 Lactic Acid 1.50 mmol/L (0.7-2.0) 06/09/21 00:14 Calcium 8.5 mg/dL (8.4-10.2) 06/12/21 06:45 Magnesium 1.80 mg/dL (1.7-2.3) 06/11/21 05:55 Total Bilirubin 1.60 mg/dL (0.1-1.2) H 06/10/21 13:20 Direct Bilirubin 0.6 mg/dL (0-0.2) H 06/10/21 13:20 Indirect Bilirubin 1.0 mg/dL 06/10/21 13:20 AST 31 units/L (5-40) 06/10/21 13:20 ALT 25 units/L (7-56) 06/10/21 13:20 Alkaline Phosphatase 200 units/L (35-129) H 06/10/21 13:20 Total Protein 5.1 g/dL (6.3-8.2) L 06/10/21 13:20 Albumin 2.8 g/dL (3.9-5) L 06/10/21 13:20 Albumin/Globulin Ratio 1.2 % 06/10/21 13:20 TSH 1.640 mlU/mL (0.270-4.200) 06/10/21 13:20 Urine Color [place] (Yellow) 06/09/21 19:22 Urine Turbidity Clear (Clear) 06/09/21 19:22 Urine pH 5.0 (5.0-7.0) 06/09/21 19:22 Ur Specific [place] 1.017 (1.003-1.030) 06/09/21 19:22 Urine Protein <15 mg/dl mg/dL (Negative) 06/09/21 19:22 Urine Glucose (UA) Neg mg/dL (Negative) 06/09/21 19:22 Urine Ketones Neg mg/dL (Negative) 06/09/21 19:22 Urine Blood Neg (Negative) 06/09/21 19:22 Urine Nitrite Neg (Negative) 06/09/21 19:22 Urine Bilirubin Neg (Negative) 06/09/21 19:22 Urine Urobilinogen 2.0 mg/dL (<2.0) 06/09/21 19:22 Ur Leukocyte Esterase Neg (Negative) 06/09/21 19:22 Urine WBC (Auto) < 1.0 /HPF (0.0-6.0) 06/09/21 19:22 Urine RBC (Auto) < 1.0 /HPF (0.0-6.0) 06/09/21 19:22 U Epithel Cells (Auto) < 1.0 /HPF (0-13.0) 06/09/21 19:22 Urine Mucus Few /HPF 06/09/21 19:22 SARS-CoV-2 (PCR) Negative (Negative) 06/11/21 10:00 Microbiology: Microbiology 06/12/21 15:31 Peripheral/Venous Blood Culture - Preliminary Culture in Progress 06/12/21 15:31 Peripheral/Venous Blood Culture - Preliminary Culture in Progress 06/10/21 13:20 Peripheral/Venous Blood Culture - Preliminary NO GROWTH AFTER 48 HOURS 06/10/21 13:24 Peripheral/Venous Blood Culture - Preliminary Staphylococcus Aureus Adams/IV: Voiding Method Toilet Active Medications - Current Medications Current Medications: Generic Name Dose Route Start Last Admin Trade Name Freq PRN Reason Stop Dose Admin Acetaminophen 650 mg 06/09/21 06:19 06/11/21 21:34 Acetaminophen 325 Mg Tab PO 650 mg Q4H PRN Administration Pain MILD(1-3)/Fever >100.5/GONSALES Bisacodyl 10 mg 06/09/21 13:39 Bisacodyl 10 Mg Rect Supp [place] QDAY PRN Constipation Duloxetine HCl 30 mg 06/10/21 15:00 06/12/21 11:08 Duloxetine 30 Mg Cap PO 30 mg QDAY TOY Administration Folic Acid 1 mg 06/13/21 10:00 Folic Acid 1 Mg Tab PO DAILY TOY Sodium Chloride 1,000 mls @ 125 mls/hr 06/09/21 06:30 06/11/21 21:37 Nacl 0.9% 1000 Ml IV 125 mls/hr DIRECT TOY Administration Heparin Sodium/Sodium Chloride 25,000 unit in 500 mls @ 21 mls/hr 06/10/21 11:30 06/13/21 00:25 Heparin/ 0.45% Nacl-25,000 Unit/500 Ml IV 1,150 units/hr TITR TOY 23 mls/hr Titration Protocol 1,050 UNITS/HR Vancomycin HCl 1,500 mg/ 530 mls @ 265 mls/hr 06/11/21 14:00 06/13/21 03:25 Sodium Chloride IV 265 mls/hr Q12H TOY Administration Amiodarone HCl 900 mg/ 500 mls @ 33.333 mls/hr 06/12/21 13:00 06/12/21 12:57 Dextrose IV 1 mg/min DIRECT TOY 33.333 mls/hr Administration Protocol 1 MG/MIN Lactulose 20 gm 06/12/21 16:00 06/13/21 00:20 Lactulose 20 Gm/30 Ml Oral Liqd PO 20 gm Q8H TOY Administration Lorazepam 1 mg 06/12/21 16:00 Lorazepam 2 Mg/Ml Vial IV Q4H PRN Agitation Magnesium Hydroxide 30 ml 06/09/21 06:19 Magnesium Hydroxide (Mom) Oral Liqd Udc PO Q4H PRN Constipation Morphine Sulfate 2 mg 06/09/21 06:19 Morphine 2 Mg/1 Ml Inj IV Q4H PRN Pain, Moderate (4-6) Morphine Sulfate 4 mg 06/09/21 06:19 Morphine 4 Mg/1 Ml Inj IV Q4H PRN Pain , Severe (7-10) Ondansetron HCl 4 mg 06/09/21 06:19 Ondansetron 4 Mg/2 Ml Inj IV Q8H PRN Nausea And Vomiting Pantoprazole Sodium 40 mg 06/12/21 17:00 06/12/21 17:27 Pantoprazole 40 Mg Tab PO 40 mg QDAC TOY Administration Sodium Chloride 10 ml 06/09/21 10:00 06/12/21 21:25 Sodium Chloride 0.9% 10 Ml Flush Syringe IV 10 ml BID TOY Administration Sodium Chloride 10 ml 06/09/21 06:19 Sodium Chloride 0.9% 10 Ml Flush Syringe IV PRN PRN LINE FLUSH
[2021-06-13 07:56] LABS: Alanine Aminotransferase 18 units/L (7-56); Albumin 2.3 g/dL (3.9-5); Bilirubin,Direct 0.5 mg/dL (0-0.2); Blood Urea Nitrogen 10 mg/dL (9-20); Calcium 8.3 mg/dL (8.4-10.2); Hemolysis Index 26
[2021-06-13 08:08] LABS: BUN/Creatinine Ratio 14
--- NOTE | 2021-06-13 09:48 | Progress Note ---
Assessment and Plan Patient is a 61-year-old male with past medical history of cirrhosis, depression, A. fib who presents to the ED on 06/08/2021 for complaint of hypotension and fall. Patient found to be in A. fib with RVR Status post fall Hypotension A. fib with RVR Lactic acidosis Hypocalcemia Hyponatremia Cirrhosis Depression Echo 06/10/2021-EF 65 to 70%. Right ventricle is mildly dilated. Right ventricle systolic function is normal left atrium mildly dilated. Large right pleural effusion. Left ventricular diastolic function is indeterminate. Patient is tachycardic Plan: A. fib is somewhat better controlled on the adequate dose. At this point we will continue IV amiodarone drip. May consider adding p.o. amiodarone in a.m. but need to watch blood pressure. Continue systemic anticoagulation. Subjective Principal diagnosis: A. fib with RVR Interval history: No complaints. Objective Vital Signs Temp Pulse Resp BP Pulse Ox 06/13/21 08:26 98.6 F 101 H 16 134/99 97 06/13/21 03:45 97.8 F 91 H 16 120/94 97 06/13/21 00:13 98 06/12/21 23:31 97.9 F 115 H 16 128/94 97 06/12/21 20:00 98 06/12/21 19:16 98.8 F 84 18 113/81 96 06/12/21 15:56 97.5 F L 106 H 18 113/80 97 - Physical Examination HEENT: Positive: PERRL, Normocephaly Neck: Positive: trachea midline Neuro: Positive: Grossly Intact Abdomen: Positive: Soft Skin: Positive: Bruising, Other (lesiosn BUE) Extremities: Present: upper extr. pulses. Absent: edema - Labs and Meds Cardiac Enzymes 06/13/21 Range/Units 06:34 AST 30 (5-40) units/L CBC 06/13/21 Range/Units 06:34 WBC 3.5 L (4.5-11.0) K/mm3 RBC 3.82 (3.65-5.03) M/mm3 Hgb 13.7 (11.8-15.2) gm/dl Hct 39.7 (35.5-45.6) % Plt Count 100 L (140-440) K/mm3 Comprehensive Metabolic Panel 06/13/21 Range/Units 06:34 Sodium 131 L (137-145) mmol/L Potassium 3.9 (3.6-5.0) mmol/L Chloride 102.6 (98-107) mmol/L Carbon Dioxide 14 L (22-30) mmol/L BUN 10 (9-20) mg/dL Creatinine 0.7 L (0.8-1.3) mg/dL Glucose 98 (75-100) mg/dL Calcium 8.3 L (8.4-10.2) mg/dL Direct Bilirubin 0.5 H (0-0.2) mg/dL Indirect Bilirubin 0.7 mg/dL AST 30 (5-40) units/L ALT 18 (7-56) units/L Alkaline Phosphatase 167 H (35-129) units/L Total Protein 4.8 L (6.3-8.2) g/dL Albumin 2.3 L (3.9-5) g/dL - Imaging and Cardiology Echo: report reviewed Repolarization changes or abnormalities: nonspecific abnormality, ST segment, and/or T wave
[2021-06-13] MEDS: DULoxetine 30 MG CAP PO SCH (11:45)
[2021-06-13] MEDS: PANTOPRAZOLE 40 MG TAB PO SCH (11:45)
[2021-06-13] MEDS: FOLIC ACID 1 MG TAB PO SCH (11:45)
[2021-06-13] MEDS: LORazepam 2 MG/ML VIAL IV PRN (11:46)
[2021-06-13] MEDS: HEPARIN/ 0.45% NACL DRIP 25,000 UNIT/500 ML BAG IV SCH (20:35)
[2021-06-14] MEDS: LACTULOSE 20 GM/30 ML ORAL LIQD PO SCH ×3 (00:43→18:42)
[2021-06-14] MEDS: LORazepam 2 MG/ML VIAL IV PRN ×2 (01:52→10:03)
[2021-06-14] MEDS: SODIUM CHLORIDE 0.9% 1000 ML 1,000 ML IV SCH ×2 (01:52→18:48)
[2021-06-14] MEDS: VANCOMYCIN 1,500 MG in SODIUM CHLORIDE 0.9% 500 ML 500 ML IV SCH (02:56)
[2021-06-14 06:19] LABS: Hemoglobin 14.5 gm/dl (11.8-15.2); Mean Corpuscular HGB Conc 33 % (32-34); Mean Corpuscular Volume 105 fl (84-94); Platelet Count 105 K/mm3 (140-440); Red Blood Count 4.18 M/mm3 (3.65-5.03); Red Cell Distribution Width 15.1 % (13.2-15.2)
[2021-06-14 06:26] LABS: INR 1.09 (0.87-1.13)
[2021-06-14 06:38] LABS: BUN/Creatinine Ratio 12; Blood Urea Nitrogen 11 mg/dL (9-20); Calcium 8.5 mg/dL (8.4-10.2); Hemolysis Index 36
--- NOTE | 2021-06-14 07:17 | Progress Note ---
Assessment and Plan Assessment and plan: #Hypotension-improved -Likely secondary to cirrhosis -Home blood pressure medications currently held -will continue to monitor continue #Atrial fibrillation with RVR-improving -Continue heparin gtt -Cardioversion unable to be completed secondary to esophageal varices history -Continue amiodarone drip, PO amiodarone added -Cardiology following, assistance appreciated #Cirrhosis with ascites #Esophageal varices -Spironolactone, propranolol and diuretics held due to hypotension -Likely secondary to alcohol abuse -no concern for SBP -plan for paracentesis early tomorrow #Hepatic encephalopathy -Patient with waxing and waning mental status -Patient currently refusing to take medications -Continue lactulose and titrate to at least 3 bowel movements per day #Suppurative thrombophlebitis #Staph aureus bacteremia -Per nursing and patient pus expressed from right brachial vein with IV removal -Blood cultures: 02/17 cultures growing MS staph aureus -Repeat blood cultures 06/12: NGTD x24hrs -TTE on 06/10 no vegetations noted -discontinue vancomycin, ancef started -Right upper extremity Doppler showed occlusive superficial thrombus within the right basilic and cephalic vein -ID consultation #Thrombocytopenia- stable -likely secondary to cirrhosis -will continue to monitor #Leukopenia -Likely secondary to cirrhosis, will continue to monitor #Head injury/laceration -secondary to ground-level fall. -CT of the brain negative for acute findings #Posttraumatic stress disorder -continue Cymbalta -Psychiatry following, assistance appreciated #Advanced care planning -Disease education conducted, care plan discussed, diagnoses discussed, prognosis discussed with the patients Jolly who acknowledges understanding with care plan. -Time: +30 min #Lactic acidosis-resolved History Interval history: Patient alert to self. Patient sleeping but easy to arouse. Prefers not to have a conversation today. Hospitalist Physical - Physical exam Narrative exam: GENERAL: Well-developed well-nourished. In no acute distress. CHEST/LUNGS: CTAB on room air HEART/CARDIOVASCULAR: Irregular irregular rhythm. No murmur, rubs or gallops appreciated. ABDOMEN: +BS. NT. Distended belly, ascites without fluid wave SKIN: Ecchymoses and scabbing most prominent in bilateral upper extremities. NEURO: No focal motor deficit. Follows all commands. MUSCULOSKELETAL: No joint effusion EXTREMITIES: No cyanosis, clubbing or edema. PSYCH: Pressured speech. Alert to self. - Constitutional Vitals: Temp Pulse Resp BP Pulse Ox 98.0 F 93 H 17 124/85 94 06/14/21 03:59 06/14/21 03:59 06/14/21 03:59 06/14/21 03:59 06/14/21 03:59 General appearance: Present: no acute distress Results - Labs CBC & Chem 7: 06/14/21 05:54 06/14/21 05:54 Labs: Laboratory Last Values WBC 3.9 K/mm3 (4.5-11.0) L 06/14/21 05:54 RBC 4.18 M/mm3 (3.65-5.03) 06/14/21 05:54 Hgb 14.5 gm/dl (11.8-15.2) 06/14/21 05:54 Hct 44.0 % (35.5-45.6) 06/14/21 05:54 MCV 105 fl (84-94) H 06/14/21 05:54 MCH 35 pg (28-32) H 06/14/21 05:54 MCHC 33 % (32-34) 06/14/21 05:54 RDW 15.1 % (13.2-15.2) 06/14/21 05:54 Plt Count 105 K/mm3 (140-440) L 06/14/21 05:54 Lymph % (Auto) 6.2 % (13.4-35.0) L 06/10/21 04:59 [place] % (Auto) 9.7 % (0.0-7.3) H 06/10/21 04:59 Eos % (Auto) 1.1 % (0.0-4.3) 06/10/21 04:59 Baso % (Auto) 1.2 % (0.0-1.8) 06/10/21 04:59 Lymph # (Auto) 0.2 K/mm3 (1.2-5.4) L 06/10/21 04:59 [place] # (Auto) 0.4 K/mm3 (0.0-0.8) 06/10/21 04:59 Eos # (Auto) 0.0 K/mm3 (0.0-0.4) 06/10/21 04:59 Baso # (Auto) 0.0 K/mm3 (0.0-0.1) 06/10/21 04:59 Seg Neutrophils % 81.8 % (40.0-70.0) H 06/10/21 04:59 Seg Neutrophils # 3.2 K/mm3 (1.8-7.7) 06/10/21 04:59 PT 15.4 Sec. (12.2-14.9) H 06/14/21 05:54 INR 1.09 (0.87-1.13) 06/14/21 05:54 APTT 30.6 Sec. (24.2-36.6) 06/10/21 13:20 Heparin Anti-Xa Level 0.71 U.I./ml (0.3-0.7) H 06/13/21 23:13 Sodium 132 mmol/L (137-145) L 06/14/21 05:54 Potassium 4.5 mmol/L (3.6-5.0) 06/14/21 05:54 Chloride 106.6 mmol/L (98-107) 06/14/21 05:54 Carbon Dioxide 12 mmol/L (22-30) L 06/14/21 05:54 Anion Gap 18 mmol/L 06/14/21 05:54 BUN 11 mg/dL (9-20) 06/14/21 05:54 Creatinine 0.9 mg/dL (0.8-1.3) 06/14/21 05:54 Estimated GFR > 60 ml/min 06/14/21 05:54 BUN/Creatinine Ratio 12 % 06/14/21 05:54 Glucose 85 mg/dL (75-100) 06/14/21 05:54 Lactic Acid 1.50 mmol/L (0.7-2.0) 06/09/21 00:14 Calcium 8.5 mg/dL (8.4-10.2) 06/14/21 05:54 Magnesium 1.80 mg/dL (1.7-2.3) 06/11/21 05:55 Total Bilirubin 1.20 mg/dL (0.1-1.2) 06/13/21 06:34 Direct Bilirubin 0.5 mg/dL (0-0.2) H 06/13/21 06:34 Indirect Bilirubin 0.7 mg/dL 06/13/21 06:34 AST 30 units/L (5-40) 06/13/21 06:34 ALT 18 units/L (7-56) 06/13/21 06:34 Alkaline Phosphatase 167 units/L (35-129) H 06/13/21 06:34 Total Protein 4.8 g/dL (6.3-8.2) L 06/13/21 06:34 Albumin 2.3 g/dL (3.9-5) L 06/13/21 06:34 Albumin/Globulin Ratio 0.9 % 06/13/21 06:34 TSH 1.640 mlU/mL (0.270-4.200) 06/10/21 13:20 Urine Color [place] (Yellow) 06/09/21 19: Urine Turbidity Clear (Clear) 06/09/21 19: Urine pH 5.0 (5.0-7.0) 06/09/21 19: Ur Specific [place] 1.017 (1.003-1.030) 06/09/21 19:22 Urine Protein <15 mg/dl mg/dL (Negative) 06/09/21 19:22 Urine Glucose (UA) Neg mg/dL (Negative) 06/09/21 19:22 Urine Ketones Neg mg/dL (Negative) 06/09/21 19:22 Urine Blood Neg (Negative) 06/09/21 19:22 Urine Nitrite Neg (Negative) 06/09/21 19:22 Urine Bilirubin Neg (Negative) 06/09/21 19:22 Urine Urobilinogen 2.0 mg/dL (<2.0) 06/09/21 19:22 Ur Leukocyte Esterase Neg (Negative) 06/09/21 19:22 Urine WBC (Auto) < 1.0 /HPF (0.0-6.0) 06/09/21 19:22 Urine RBC (Auto) < 1.0 /HPF (0.0-6.0) 06/09/21 19:22 U Epithel Cells (Auto) < 1.0 /HPF (0-13.0) 06/09/21 19:22 Urine Mucus Few /HPF 06/09/21 19:22 SARS-CoV-2 (PCR) Negative (Negative) 06/11/21 10:00 Microbiology: Microbiology 06/10/21 13:20 Peripheral/Venous Blood Culture - Preliminary NO GROWTH AFTER 72 HOURS 06/12/21 15:31 Peripheral/Venous Blood Culture - Preliminary NO GROWTH AFTER 24 HOURS 06/12/21 15:31 Peripheral/Venous Blood Culture - Preliminary NO GROWTH AFTER 24 HOURS 06/10/21 13:24 Peripheral/Venous Blood Culture - Preliminary Staphylococcus Aureus Adams/IV: Voiding Method Incontinent Active Medications - Current Medications Current Medications: Generic Name Dose Route Start Last Admin Trade Name Freq PRN Reason Stop Dose Admin Acetaminophen 650 mg 06/09/21 06:19 06/11/21 21:34 Acetaminophen 325 Mg Tab PO 650 mg Q4H PRN Administration Pain MILD(1-3)/Fever >100.5/GONSALES Bisacodyl 10 mg 06/09/21 13:39 Bisacodyl 10 Mg Rect Supp [place] QDAY PRN Constipation Duloxetine HCl 30 mg 06/10/21 15:00 06/13/21 11:45 Duloxetine 30 Mg Cap PO Not Given QDAY TOY Folic Acid 1 mg 06/13/21 10:00 06/13/21 11:45 Folic Acid 1 Mg Tab PO Not Given DAILY TOY Sodium Chloride 1,000 mls @ 125 mls/hr 06/09/21 06:30 06/14/21 01:52 Nacl 0.9% 1000 Ml IV 125 mls/hr DIRECT TOY Administration Heparin Sodium/Sodium Chloride 25,000 unit in 500 mls @ 21 mls/hr 06/10/21 11:30 06/14/21 01:33 Heparin/ 0.45% Nacl-25,000 Unit/500 Ml IV 900 units/hr TITR TOY 18 mls/hr Titration Protocol 1,050 UNITS/HR Vancomycin HCl 1,500 mg/ 530 mls @ 265 mls/hr 06/11/21 14:00 06/14/21 02:56 Sodium Chloride IV 265 mls/hr Q12H TOY Administration Amiodarone HCl 900 mg/ 500 mls @ 33.333 mls/hr 06/12/21 13:00 06/12/21 12:57 Dextrose IV 1 mg/min DIRECT TOY 33.333 mls/hr Administration Protocol 1 MG/MIN Lactulose 20 gm 06/12/21 16:00 06/14/21 00:43 Lactulose 20 Gm/30 Ml Oral Liqd PO 20 gm Q8H TOY Administration Lorazepam 1 mg 06/12/21 16:00 06/14/21 01:52 Lorazepam 2 Mg/Ml Vial IV 1 mg Q4H PRN Administration Agitation Magnesium Hydroxide 30 ml 06/09/21 06:19 Magnesium Hydroxide (Mom) Oral Liqd Udc PO Q4H PRN Constipation Morphine Sulfate 2 mg 06/09/21 06:19 Morphine 2 Mg/1 Ml Inj IV Q4H PRN Pain, Moderate (4-6) Morphine Sulfate 4 mg 06/09/21 06:19 Morphine 4 Mg/1 Ml Inj IV Q4H PRN Pain , Severe (7-10) Ondansetron HCl 4 mg 06/09/21 06:19 Ondansetron 4 Mg/2 Ml Inj IV Q8H PRN Nausea And Vomiting Pantoprazole Sodium 40 mg 06/12/21 17:00 06/13/21 11:45 Pantoprazole 40 Mg Tab PO Not Given QDAC TOY Sodium Chloride 10 ml 06/09/21 10:00 06/14/21 01:43 Sodium Chloride 0.9% 10 Ml Flush Syringe IV 10 ml BID TOY Administration Sodium Chloride 10 ml 06/09/21 06:19 Sodium Chloride 0.9% 10 Ml Flush Syringe IV PRN PRN LINE FLUSH
[2021-06-14] MEDS: DULoxetine 30 MG CAP PO SCH (10:03)
[2021-06-14] MEDS: PANTOPRAZOLE 40 MG TAB PO SCH (10:03)
[2021-06-14] MEDS: FOLIC ACID 1 MG TAB PO SCH (10:03)
--- NOTE | 2021-06-14 10:15 | Progress Note ---
Assessment and Plan Patient is a 61-year-old male with past medical history of cirrhosis, depression, A. fib who presents to the ED on 06/08/2021 for complaint of hypotension and fall. Patient found to be in A. fib with RVR Status post fall Hypotension A. fib with RVR Lactic acidosis Hypocalcemia Hyponatremia Cirrhosis Depression Echo 06/10/2021-EF 65 to 70%. Right ventricle is mildly dilated. Right ventricle systolic function is normal left atrium mildly dilated. Large right pleural effusion. Left ventricular diastolic function is indeterminate. Patient is tachycardic Plan: Heart rate control is better. Continue IV amiodarone. Start p.o. amiodarone. Continue systemic anticoagulation. Subjective Principal diagnosis: A. fib with RVR Interval history: No complaints. Objective Vital Signs Temp Pulse Resp BP BP Pulse Ox 06/14/21 07:27 97.9 F 103 H 16 133/100 95 06/14/21 03:59 98.0 F 93 H 17 124/85 94 06/13/21 23:01 97.8 F 94 H 16 112/81 92 06/13/21 22:00 105 H 94 06/13/21 19:58 94 06/13/21 19:57 97.6 F 72 18 134/81 06/13/21 16:01 97.9 F 70 16 100/56 95 06/13/21 12:00 98 06/13/21 11:30 98.4 F 100 H 16 100/55 96 06/13/21 10:17 141 H - Physical Examination HEENT: Positive: PERRL, Normocephaly Neck: Positive: trachea midline Neuro: Positive: Grossly Intact Abdomen: Positive: Soft Skin: Positive: Bruising, Other (lesiosn BUE) Extremities: Present: upper extr. pulses. Absent: edema - Labs and Meds Coagulation 06/14/21 Range/Units 05:54 PT 15.4 H (12.2-14.9) Sec. INR 1.09 (0.87-1.13) CBC 06/14/21 Range/Units 05:54 WBC 3.9 L (4.5-11.0) K/mm3 RBC 4.18 (3.65-5.03) M/mm3 Hgb 14.5 (11.8-15.2) gm/dl Hct 44.0 (35.5-45.6) % Plt Count 105 L (140-440) K/mm3 Comprehensive Metabolic Panel 06/14/21 Range/Units 05:54 Sodium 132 L (137-145) mmol/L Potassium 4.5 (3.6-5.0) mmol/L Chloride 106.6 (98-107) mmol/L Carbon Dioxide 12 L (22-30) mmol/L BUN 11 (9-20) mg/dL Creatinine 0.9 (0.8-1.3) mg/dL Glucose 85 (75-100) mg/dL Calcium 8.5 (8.4-10.2) mg/dL - Imaging and Cardiology Echo: report reviewed Repolarization changes or abnormalities: nonspecific abnormality, ST segment, and/or T wave
[2021-06-14] MEDS: AMIODARONE 200 MG TAB PO SCH ×2 (13:23→21:54)
[2021-06-14] MEDS: HEPARIN/ 0.45% NACL DRIP 25,000 UNIT/500 ML BAG IV SCH (21:55)
[2021-06-15] MEDS: LACTULOSE 20 GM/30 ML ORAL LIQD PO SCH ×4 (01:11→23:32)
[2021-06-15 06:34] LABS: Hematocrit 42.3 % (35.5-45.6); Hemoglobin 14.5 gm/dl (11.8-15.2); Mean Corpuscular HGB Conc 34 % (32-34); Mean Corpuscular Volume 104 fl (84-94); Platelet Count 132 K/mm3 (140-440); Red Blood Count 4.08 M/mm3 (3.65-5.03); Red Cell Distribution Width 15.3 % (13.2-15.2)
[2021-06-15 06:35] LABS: INR 0.97 (0.87-1.13)
--- NOTE | 2021-06-15 07:29 | Progress Note ---
Assessment and Plan Assessment and plan: #Hypotension-improved -Likely secondary to cirrhosis -Home blood pressure medications currently held -will continue to monitor continue #Atrial fibrillation with RVR-improving -Continue heparin gtt -Cardioversion unable to be completed secondary to esophageal varices history -Continue amiodarone drip, PO amiodarone added -Cardiology following, assistance appreciated #Cirrhosis with ascites #Esophageal varices -Spironolactone, propranolol and diuretics held due to hypotension -Likely secondary to alcohol abuse -no concern for SBP -plan for paracentesis early tomorrow #Hepatic encephalopathy -Patient with waxing and waning mental status -Patient currently refusing to take medications -Continue lactulose and titrate to at least 3 bowel movements per day #Suppurative thrombophlebitis #Staph aureus bacteremia -Per nursing and patient pus expressed from right brachial vein with IV removal -Blood cultures: 02/17 cultures growing MS staph aureus -Repeat blood cultures 06/12: NGTD x24hrs -TTE on 06/10 no vegetations noted -discontinue vancomycin, ancef started -Right upper extremity Doppler showed occlusive superficial thrombus within the right basilic and cephalic vein -ID consultation #Thrombocytopenia- stable -likely secondary to cirrhosis -will continue to monitor #Leukopenia -Likely secondary to cirrhosis, will continue to monitor #Head injury/laceration -secondary to ground-level fall. -CT of the brain negative for acute findings #Posttraumatic stress disorder -continue Cymbalta -Psychiatry following, assistance appreciated #Advanced care planning -Disease education conducted, care plan discussed, diagnoses discussed, prognosis discussed with the patients Jolly who acknowledges understanding with care plan. -Time: +30 min #Lactic acidosis-resolved History Interval history: Patient is alert and oriented x3 today. He denies abdominal pain and malaise. He does report indigestion. No complaints at this time. Aware of plan for paracentesis sometime today. Hospitalist Physical - Physical exam Narrative exam: GENERAL: Well-developed well-nourished. In no acute distress. CHEST/LUNGS: CTAB on room air HEART/CARDIOVASCULAR: Irregular irregular rhythm. No murmur, rubs or gallops appreciated. ABDOMEN: +BS. NT. Distended belly, ascites without fluid wave SKIN: Ecchymoses and scabbing most prominent in bilateral upper extremities. NEURO: No focal motor deficit. Follows all commands. EXTREMITIES: No cyanosis, clubbing or edema. PSYCH: Pressured speech. AAOx3 - Constitutional Vitals: Temp Pulse Resp BP Pulse Ox 98.3 F 120 H 19 134/91 92 06/15/21 04:02 06/15/21 04:02 06/15/21 04:02 06/15/21 04:02 06/15/21 04:02 General appearance: Present: no acute distress Results - Labs CBC & Chem 7: 06/15/21 05:22 06/15/21 05:22 Labs: Laboratory Last Values WBC 5.6 K/mm3 (4.5-11.0) 06/15/21 05: RBC 4.08 M/mm3 (3.65-5.03) 06/15/21 05: Hgb 14.5 gm/dl (11.8-15.2) 06/15/21 05:22 Hct 42.3 % (35.5-45.6) 06/15/21 05:22 MCV 104 fl (84-94) H 06/15/21 05:22 MCH 36 pg (28-32) H 06/15/21 05:22 MCHC 34 % (32-34) 06/15/21 05:22 RDW 15.3 % (13.2-15.2) H 06/15/21 05:22 Plt Count 132 K/mm3 (140-440) L 06/15/21 05:22 Lymph % (Auto) 6.2 % (13.4-35.0) L 06/10/21 04:59 [place] % (Auto) 9.7 % (0.0-7.3) H 06/10/21 04:59 Eos % (Auto) 1.1 % (0.0-4.3) 06/10/21 04:59 Baso % (Auto) 1.2 % (0.0-1.8) 06/10/21 04:59 Lymph # (Auto) 0.2 K/mm3 (1.2-5.4) L 06/10/21 04:59 [place] # (Auto) 0.4 K/mm3 (0.0-0.8) 06/10/21 04:59 Eos # (Auto) 0.0 K/mm3 (0.0-0.4) 06/10/21 04:59 Baso # (Auto) 0.0 K/mm3 (0.0-0.1) 06/10/21 04:59 Seg Neutrophils % 81.8 % (40.0-70.0) H 06/10/21 04:59 Seg Neutrophils # 3.2 K/mm3 (1.8-7.7) 06/10/21 04:59 PT 13.9 Sec. (12.2-14.9) 06/15/21 05:22 INR 0.97 (0.87-1.13) 06/15/21 05:22 APTT 30.6 Sec. (24.2-36.6) 06/10/21 13:20 Heparin Anti-Xa Level 0.23 U.I./ml (0.3-0.7) L 06/14/21 19:06 Sodium 132 mmol/L (137-145) L 06/14/21 05:54 Potassium 4.5 mmol/L (3.6-5.0) 06/14/21 05:54 Chloride 106.6 mmol/L (98-107) 06/14/21 05:54 Carbon Dioxide 12 mmol/L (22-30) L 06/14/21 05:54 Anion Gap 18 mmol/L 06/14/21 05:54 BUN 11 mg/dL (9-20) 06/14/21 05:54 Creatinine 1.2 mg/dL (0.8-1.3) 06/15/21 05:22 Estimated GFR > 60 ml/min 06/15/21 05:22 BUN/Creatinine Ratio 12 % 06/14/21 05:54 Glucose 85 mg/dL (75-100) 06/14/21 05:54 Lactic Acid 1.50 mmol/L (0.7-2.0) 06/09/21 00:14 Calcium 8.5 mg/dL (8.4-10.2) 06/14/21 05:54 Magnesium 1.80 mg/dL (1.7-2.3) 06/11/21 05:55 Total Bilirubin 1.20 mg/dL (0.1-1.2) 06/13/21 06:34 Direct Bilirubin 0.5 mg/dL (0-0.2) H 06/13/21 06:34 Indirect Bilirubin 0.7 mg/dL 06/13/21 06:34 AST 30 units/L (5-40) 06/13/21 06:34 ALT 18 units/L (7-56) 06/13/21 06:34 Alkaline Phosphatase 167 units/L (35-129) H 06/13/21 06:34 Total Protein 4.8 g/dL (6.3-8.2) L 06/13/21 06:34 Albumin 2.3 g/dL (3.9-5) L 06/13/21 06:34 Albumin/Globulin Ratio 0.9 % 06/13/21 06:34 TSH 1.640 mlU/mL (0.270-4.200) 06/10/21 13:20 Urine Color [place] (Yellow) 06/09/21 19: Urine Turbidity Clear (Clear) 06/09/21 19: Urine pH 5.0 (5.0-7.0) 06/09/21 19:22 Ur Specific [place] 1.017 (1.003-1.030) 06/09/21 19:22 Urine Protein <15 mg/dl mg/dL (Negative) 06/09/21 19:22 Urine Glucose (UA) Neg mg/dL (Negative) 06/09/21 19:22 Urine Ketones Neg mg/dL (Negative) 06/09/21 19:22 Urine Blood Neg (Negative) 06/09/21 19:22 Urine Nitrite Neg (Negative) 06/09/21 19:22 Urine Bilirubin Neg (Negative) 06/09/21 19:22 Urine Urobilinogen 2.0 mg/dL (<2.0) 06/09/21 19:22 Ur Leukocyte Esterase Neg (Negative) 06/09/21 19:22 Urine WBC (Auto) < 1.0 /HPF (0.0-6.0) 06/09/21 19:22 Urine RBC (Auto) < 1.0 /HPF (0.0-6.0) 06/09/21 19:22 U Epithel Cells (Auto) < 1.0 /HPF (0-13.0) 06/09/21 19:22 Urine Mucus Few /HPF 06/09/21 19:22 SARS-CoV-2 (PCR) Negative (Negative) 06/11/21 10:00 Microbiology: Microbiology 06/10/21 13:20 Peripheral/Venous Blood Culture - Preliminary NO GROWTH AFTER 4 DAYS 06/12/21 15:31 Peripheral/Venous Blood Culture - Preliminary NO GROWTH AFTER 48 HOURS 06/12/21 15:31 Peripheral/Venous Blood Culture - Preliminary NO GROWTH AFTER 48 HOURS Adams/IV: Voiding Method Indwelling Catheter Active Medications - Current Medications Current Medications: Generic Name Dose Route Start Last Admin Trade Name Freq PRN Reason Stop Dose Admin Acetaminophen 650 mg 06/09/21 06:19 06/11/21 21:34 Acetaminophen 325 Mg Tab PO 650 mg Q4H PRN Administration Pain MILD(1-3)/Fever >100.5/GONSALES Amiodarone HCl 200 mg 06/14/21 11:00 06/14/21 21:54 Amiodarone 200 Mg Tab PO 200 mg BID TOY Administration Bisacodyl 10 mg 06/09/21 13:39 Bisacodyl 10 Mg Rect Supp NM QDAY PRN Constipation Duloxetine HCl 30 mg 06/10/21 15:00 06/14/21 10:03 Duloxetine 30 Mg Cap PO 30 mg QDAY TOY Administration Folic Acid 1 mg 06/13/21 10:00 06/14/21 10:03 Folic Acid 1 Mg Tab PO 1 mg DAILY TOY Administration Sodium Chloride 1,000 mls @ 125 mls/hr 06/09/21 06:30 06/14/21 18:48 Nacl 0.9% 1000 Ml IV 125 mls/hr DIRECT TOY Administration Heparin Sodium/Sodium Chloride 25,000 unit in 500 mls @ 21 mls/hr 06/10/21 11:30 06/14/21 22:00 Heparin/ 0.45% Nacl-25,000 Unit/500 Ml IV 800 units/hr TITR TOY 16 mls/hr Titration Protocol 1,050 UNITS/HR Amiodarone HCl 900 mg/ 500 mls @ 33.333 mls/hr 06/12/21 13:00 06/12/21 12:57 Dextrose IV 1 mg/min DIRECT TOY 33.333 mls/hr Administration Protocol 1 MG/MIN Cefazolin Sodium 2 gm/ Sodium 100 mls @ 200 mls/hr 06/14/21 09:00 06/15/21 01:11 Chloride IV 200 mls/hr Q8H TOY Administration Protocol Lactulose 20 gm 06/12/21 16:00 06/15/21 01:11 Lactulose 20 Gm/30 Ml Oral Liqd PO 20 gm Q8H TOY Administration Lorazepam 1 mg 06/12/21 16:00 06/14/21 10:03 Lorazepam 2 Mg/Ml Vial IV 1 mg Q4H PRN Administration Agitation Magnesium Hydroxide 30 ml 06/09/21 06:19 Magnesium Hydroxide (Mom) Oral Liqd Udc PO Q4H PRN Constipation Morphine Sulfate 2 mg 06/09/21 06:19 Morphine 2 Mg/1 Ml Inj IV Q4H PRN Pain, Moderate (4-6) Morphine Sulfate 4 mg 06/09/21 06:19 Morphine 4 Mg/1 Ml Inj IV Q4H PRN Pain , Severe (7-10) Ondansetron HCl 4 mg 06/09/21 06:19 Ondansetron 4 Mg/2 Ml Inj IV Q8H PRN Nausea And Vomiting Pantoprazole Sodium 40 mg 06/12/21 17:00 06/14/21 10:03 Pantoprazole 40 Mg Tab PO 40 mg QDAC TOY Administration Sodium Chloride 10 ml 06/09/21 10:00 06/14/21 21:54 Sodium Chloride 0.9% 10 Ml Flush Syringe IV 10 ml BID TOY Administration Sodium Chloride 10 ml 06/09/21 06:19 Sodium Chloride 0.9% 10 Ml Flush Syringe IV PRN PRN LINE FLUSH
[2021-06-15] MEDS: PANTOPRAZOLE 40 MG TAB PO SCH (08:16)
[2021-06-15] MEDS: DULoxetine 30 MG CAP PO SCH (09:46)
[2021-06-15] MEDS: FOLIC ACID 1 MG TAB PO SCH (09:46)
[2021-06-15] MEDS: AMIODARONE 200 MG TAB PO SCH ×2 (09:51→21:05)
[2021-06-15] MEDS ORDERED: LIDOCAINE (1%) 10 MG/1 ML VIAL 20 ML MDV ONE (13:09)
--- NOTE | 2021-06-15 13:59 | Progress Note ---
Assessment and Plan Patient is a 61-year-old male with past medical history of cirrhosis, depression, A. fib who presents to the ED on 06/08/2021 for complaint of hypotension and fall. Patient found to be in A. fib with RVR Status post fall Hypotension A. fib with RVR Lactic acidosis Hypocalcemia Hyponatremia Cirrhosis Depression Echo 06/10/2021-EF 65 to 70%. Right ventricle is mildly dilated. Right ventricle systolic function is normal left atrium mildly dilated. Large right pleural effusion. Left ventricular diastolic function is indeterminate. Patient is tachycardic Plan: Patient remains in A. fib with RVR. However rate has improved We will initiate metoprolol 12.5 mg p.o. twice daily with hold parameters Continue amiodarone drip and amiodarone p.o. Continue to monitor on telemetry Continue heparin drip for anticoagulation at this time. However due to patient's history of falls unclear if patient will be able to tolerate long-term anticoagulation Patient seen in conjunction with Dr. eMna who agrees with this plan of care - Patient Problems (1) Atrial fibrillation with RVR Current Visit: Yes Status: Acute (2) Hypocalcemia Current Visit: Yes Status: Acute (3) Hypotension Current Visit: Yes Status: Acute (4) Lactic acidosis Current Visit: Yes Status: Acute (5) Head injury Current Visit: No Status: Acute Subjective Date of service: 06/15/21 Principal diagnosis: A. fib with RVR Interval history: Patient resting in bed in no acute distress Patient remains in A. fib with RVR rate from 100s-110s Objective Vital Signs Temp Pulse Resp BP BP Pulse Ox 06/15/21 10:00 117 H 94 06/15/21 07:32 97.9 F 100 H 112/91 94 06/15/21 04:02 98.3 F 120 H 19 134/91 92 06/14/21 23:56 97.7 F 103 H 16 130/97 94 06/14/21 22:00 97 06/14/21 19:18 97.6 F 120 H 18 115/83 93 06/14/21 17:42 97.9 F 113 H 16 122/89 92 06/14/21 16:41 98.0 F 16 199/165 - Physical Examination General: No Apparent Distress HEENT: Positive: PERRL, Normocephaly Neck: Positive: trachea midline Cardiac: Positive: irregularly irregular, Tachycardia Lungs: Positive: Normal Breath Sounds Neuro: Positive: Grossly Intact Abdomen: Positive: Soft Skin: Positive: Bruising, Other (lesiosn BUE) Extremities: Present: upper extr. pulses. Absent: edema - Labs and Meds Coagulation 06/15/21 Range/Units 05:22 PT 13.9 (12.2-14.9) Sec. INR 0.97 (0.87-1.13) CBC 06/15/21 Range/Units 05:22 WBC 5.6 (4.5-11.0) K/mm3 RBC 4.08 (3.65-5.03) M/mm3 Hgb 14.5 (11.8-15.2) gm/dl Hct 42.3 (35.5-45.6) % Plt Count 132 L (140-440) K/mm3 Comprehensive Metabolic Panel 06/15/21 Range/Units 05:22 Creatinine 1.2 (0.8-1.3) mg/dL - Imaging and Cardiology Echo: report reviewed - Telemetry EKG Rhythm: Atrial Fibrillation - EKG Supraventricular dysrhythmia: atrial fibrillation Repolarization changes or abnormalities: nonspecific abnormality, ST segment, and/or T wave
--- NOTE | 2021-06-15 14:57 | Consultation ---
History of Present Illness - Reason for Consult Consult date: 06/15/21 - History of Present Illness 61-year-old male past medical history of liver cirrhosis, depression, alcohol abuse presented to hospital after being seen in the psychiatric facility and noted to have hypotension and falls. He was seen in the emergency room the day prior to admission for similar complaints. He sustained a laceration of his head during the fall. He was found to be bacteremic. Afebrile since admission, tachycardic. White count 3.5-5.6 COVID-19 negative. Normal renal function. Blood culture with 1 bottle staph aureus. Imaging personally reviewed: TTE: No evidence of vegetation. Review of Systems: Bold if positive, otherwise negative General: fevers, chills, rigors HEENT: visual disturbance, diplopia, eye pain Respiratory: cough, sputum, hemoptysis, shortness of breath Cardiovascular: chest pain, syncope Gastrointestinal: nausea, vomiting, diarrhea, abdominal pain Genitourinary: dysuria, hematuria, flank pain Musculoskeletal: neck pain, back pain, joint pain, edema Neurologic: headaches, seizures Hematologic: easy bruising or bleeding Endocrine: night sweats, acute weight loss Skin: rash, jaundice, redness Psychiatric: suicidal, homicidal ideation Past History Past Medical History: hypertension, other (Depression,Gout,Cirrhosis of the liver) Past Surgical History: No surgical history Social history: no significant social history Family history: CAD, cancer Medications and Allergies Allergies Allergy/AdvReac Type Severity Reaction Status Date / Time No Known Allergies Allergy Verified 06/09/21 06:22 Home Medications Medication Instructions Recorded Confirmed Last Taken Type Colchicine 1 tab PO PRN 06/10/21 06/10/21 Unknown History Duloxetine HCl 30 mg PO DAILY 06/10/21 06/10/21 Unknown History Folic Acid 1 tab PO DAILY 06/10/21 06/10/21 Unknown History Lidocaine [Lidoderm] 1 patch TP DAILY 06/11/21 06/11/21 Unknown History Magnesium Oxide 400 400 mg PO DAILY 06/11/21 06/11/21 Unknown History Spironolactone [Aldactone] 25 mg PO QDAY 06/11/21 06/11/21 Unknown History ZyPREXA 7.5 mg PO HS 06/11/21 06/11/21 Unknown History cloNIDine [Catapres] 0.1 mg PO TID PRN 06/11/21 06/11/21 Unknown History propranoloL [Inderal] 40 mg PO DAILY 06/11/21 06/11/21 Unknown History traZODone [Desyrel] 50 mg PO HS 06/11/21 06/11/21 Unknown History Active Meds: Active Medications Acetaminophen (Acetaminophen 325 Mg Tab) 650 mg PO Q4H PRN PRN Reason: Pain MILD(1-3)/Fever >100.5/GONSALES Last Admin: 06/11/21 21:34 Dose: 650 mg Amiodarone HCl (Amiodarone 200 Mg Tab) 200 mg PO BID TOY Last Admin: 06/15/21 09:51 Dose: 200 mg Bisacodyl (Bisacodyl 10 Mg Rect Supp) 10 mg MS QDAY PRN PRN Reason: Constipation Duloxetine HCl (Duloxetine 30 Mg Cap) 30 mg PO QDAY TOY Last Admin: 06/15/21 09:46 Dose: Not Given Folic Acid (Folic Acid 1 Mg Tab) 1 mg PO DAILY TOY Last Admin: 06/15/21 09:46 Dose: Not Given Sodium Chloride (Nacl 0.9% 1000 Ml) 1,000 mls @ 125 mls/hr IV DIRECT TOY Last Admin: 06/14/21 18:48 Dose: 125 mls/hr Heparin Sodium/Sodium Chloride (Heparin/ 0.45% Nacl-25,000 Unit/500 Ml) 25,000 unit in 500 mls @ 21 mls/hr IV TITR TOY; Protocol Last Titration: 06/14/21 22:00 Dose: 800 units/hr, 16 mls/hr Amiodarone HCl 900 mg/ (Dextrose) 500 mls @ 33.333 mls/hr IV DIRECT TOY; Protocol Last Admin: 06/12/21 12:57 Dose: 1 mg/min, 33.333 mls/hr Cefazolin Sodium 2 gm/ Sodium (Chloride) 100 mls @ 200 mls/hr IV Q8H TOY; Protocol Last Admin: 06/15/21 09:50 Dose: 200 mls/hr Lactulose (Lactulose 20 Gm/30 Ml Oral Liqd) 20 gm PO Q8H TOY Last Admin: 06/15/21 08:15 Dose: Not Given Lorazepam (Lorazepam 2 Mg/Ml Vial) 1 mg IV Q4H PRN PRN Reason: Agitation Last Admin: 06/14/21 10:03 Dose: 1 mg Magnesium Hydroxide (Magnesium Hydroxide (Mom) Oral Liqd Udc) 30 ml PO Q4H PRN PRN Reason: Constipation Metoprolol Tartrate (Metoprolol Tartrate 25 Mg Tab) 12.5 mg PO QID [facility] Morphine Sulfate (Morphine 2 Mg/1 Ml Inj) 2 mg IV Q4H PRN PRN Reason: Pain, Moderate (4-6) Morphine Sulfate (Morphine 4 Mg/1 Ml Inj) 4 mg IV Q4H PRN PRN Reason: Pain , Severe (7-10) Ondansetron HCl (Ondansetron 4 Mg/2 Ml Inj) 4 mg IV Q8H PRN PRN Reason: Nausea And Vomiting Pantoprazole Sodium (Pantoprazole 40 Mg Tab) 40 mg PO QDAC [facility] Last Admin: 06/15/21 08:16 Dose: 40 mg Sodium Chloride (Sodium Chloride 0.9% 10 Ml Flush Syringe) 10 ml IV BID [facility] Last Admin: 06/15/21 09:58 Dose: Not Given Sodium Chloride (Sodium Chloride 0.9% 10 Ml Flush Syringe) 10 ml IV PRN PRN PRN Reason: LINE FLUSH Physical Examination - Physical Exam Narrative exam: Physical Exam: Constitutional: Alert, cooperative. No acute distress Head, Ears, Nose: Normocephalic, atraumatic. External ears, nose normal Eyes: Conjunctivae/corneas clear. No icterus. No ptosis. Neck: Supple, no meningeal signs Oral: dentition fair, no thrush Cardiovascular: S1, S2 normal. Respiratory: Good air entry, clear to auscultation bilaterally GI: Soft, non-tender; bowel sounds normal. No peritoneal signs. +ascites Musculoskeletal: No pedal edema, no cyanosis. Skin: No rash or abscess Hem/Lymphatic: No palpable cervical or supraclavicular nodes. No lymphangitis Psych: Mood ok. Affect normal Neurological: Awake, alert, oriented. No gross abnormality - Constitutional Vitals: Vital Signs Temp Pulse Resp BP Pulse Ox 97.9 F 117 H 19 112/91 94 06/15/21 07:32 06/15/21 10:00 06/15/21 04:02 06/15/21 07:32 06/15/21 10:00 Temperature -Last 24 Hours Temperature 97.9 F Temperature 98.3 F Temperature 97.7 F Temperature 97.6 F Temperature 97.9 F Temperature 98.0 F Results - Labs CBC & Chem 7: 06/15/21 05:22 06/15/21 05:22 Labs: Abnormal lab results 06/14/21 06/15/21 06/15/21 Range/Units 19:06 05:22 07:33 MCV 104 H (84-94) fl MCH 36 H (28-32) pg RDW 15.3 H (13.2-15.2) % Plt Count 132 L (140-440) K/mm3 Heparin Anti-Xa Level 0.23 L (0.3-0.7) U.I./ml POC Glucose 132 H (70-105) mg/dL Assessment and Plan Cultures: Blood culture MSSA 1 bottle Blood culture 06/12/2021 no growth so far. A/P: 61 yo M PMHx cirrhosis, EtOH abuse now with: #MSSA bacteremia: Source is likely from suppurative thrombophlebitis, nurses noted purulent discharge from the PIV. Currently on Ancef, agree #Ascites: Status post paracentesis, weight analysis #Cirrhosis: Secondary to alcohol abuse Recs: -Continue Ancef 2 g every 8 hours to complete 4 weeks. -Case management helping for Ancef until 07/10/2021 -Okay for midline on discharge Thank you for the consult, we will continue to follow. MD Diane Pierson [facility] O: [phone] F: [phone]
[2021-06-15] MEDS: METOPROLOL TARTRATE 25 MG TAB PO SCH ×3 (15:30→21:05)
[2021-06-15] MEDS: AMIODARONE 900 MG in DEXTROSE 5% IN WATER 482 ML IV SCH (19:19)
[2021-06-15] MEDS: SODIUM CHLORIDE 0.9% 1000 ML 1,000 ML IV SCH (21:04)
[2021-06-15] MEDS: HEPARIN/ 0.45% NACL DRIP 25,000 UNIT/500 ML BAG IV SCH (21:04)
[2021-06-16 04:58] LABS: Hemoglobin 14.1 gm/dl (11.8-15.2)
[2021-06-16 05:09] LABS: Calcium 7.9 mg/dL (8.4-10.2)
[2021-06-16] MEDS ORDERED: HEPARIN 10,000 UNITS/10 ML VIAL IV ONE (07:22)
[2021-06-16] MEDS ORDERED: CALCIUM CHLORIDE 1,000 MG in SODIUM CHLORIDE 0.9% 100 ML IV ONE (07:24)
--- NOTE | 2021-06-16 07:46 | Procedure Note ---
Date of procedure: 06/15/21 Pre-op diagnosis: ascites Post-op diagnosis: same Procedure: US paracentesis Findings: large ascites Anesthesia: local Surgeon: UBALDO NEWMAN Estimated blood loss: none Pathology: none Specimen disposition: discarded Condition: stable Disposition: floor
--- NOTE | 2021-06-16 07:51 | Ultrasound Report ---
ULTRASOUND-GUIDED PARACENTESIS HISTORY: ascites. PROCEDURE: The risks (including but not limited to bleeding, infection, and bowel injury) and benefi ts were explained to the patient and informed consent was obtained. A time out procedure was perform ed. Ultrasound was used to evaluate the abdomen and locate the largest ascites fluid pocket. Once the sk in was marked, the procedure site was prepped and draped in the usual sterile fashion and lidocaine w as used for local anesthesia. A 5 [place] centesis catheter was placed. The patient was monitored cl osely throughout the procedure, and a total of 10.7 L of clear yellow fluid was aspirated. No labs w ere ordered. The patient tolerated the procedure well with no complications. IMPRESSION: Successful ultrasound-guided paracentesis as described. Signer Name: Marcello Guerra Jr, MD Signed: 06/16/2021 7:47 AM Workstation Name: [id number]
[2021-06-16] MEDS: LACTULOSE 20 GM/30 ML ORAL LIQD PO SCH ×2 (09:16→17:30)
[2021-06-16] MEDS: MIDODRINE 10 MG TAB PO SCH ×2 (10:06→23:43)
[2021-06-16] MEDS: PANTOPRAZOLE 40 MG TAB PO SCH (10:16)
[2021-06-16] MEDS: DULoxetine 30 MG CAP PO SCH (10:16)
[2021-06-16] MEDS: SODIUM BICARBONATE 650 MG TAB PO SCH ×2 (10:16→23:43)
[2021-06-16] MEDS: METOPROLOL TARTRATE 25 MG TAB PO SCH ×4 (10:17→22:43)
[2021-06-16] MEDS: AMIODARONE 200 MG TAB PO SCH ×2 (10:19→23:43)
[2021-06-16] MEDS: FOLIC ACID 1 MG TAB PO SCH (10:19)
--- NOTE | 2021-06-16 12:23 | Progress Note ---
Assessment and Plan Patient is a 61-year-old male with past medical history of cirrhosis, depression, A. fib who presents to the ED on 06/08/2021 for complaint of hypotension and fall. Patient found to be in A. fib with RVR Status post fall Hypotension A. fib with RVR Lactic acidosis Hypocalcemia Hyponatremia Cirrhosis Depression Echo 06/10/2021-EF 65 to 70%. Right ventricle is mildly dilated. Right ventricle systolic function is normal left atrium mildly dilated. Large right pleural effusion. Left ventricular diastolic function is indeterminate. Patient is tachycardic Plan: Patient remains in A. fib rate significantly improved trending 60s to 70s Continue metoprolol 12.5 mg p.o. twice daily with hold parameters We will stop amiodarone drip. Continue amiodarone p.o. We will stop heparin drip Determined the patient is not a good candidate for long-term anticoagulation due to cirrhosis, esophageal varices, thrombocytopenia and reports of frequent falls patient has a high risk of bleed Furthermore patient's [id number] score is was 1 low to moderate risk and has had bleed score of 2. Risk of bleeding outweighs risk of anticoagulation Attempted to call patient's to discuss plan of care however unable to reach patient's will attempt to call again later Upon discharge patient should follow-up with her primary self storage manager or if patient wishes may follow-up with our group in 1 to 2 weeks after discharge Patient seen in conjunction with Dr. Mena who agrees with this plan of care - Patient Problems (1) Atrial fibrillation with RVR Current Visit: Yes Status: Acute (2) Hypocalcemia Current Visit: Yes Status: Acute (3) Hypotension Current Visit: Yes Status: Acute (4) Lactic acidosis Current Visit: Yes Status: Acute (5) Head injury Current Visit: No Status: Acute Subjective Date of service: 06/16/21 Principal diagnosis: A. fib with RVR Interval history: Patient resting in bed in no acute distress Patient remains in A. fib rate 60s to 70s Objective Vital Signs Temp Pulse Resp BP BP Pulse Ox 06/16/21 11:13 98.3 F 61 20 103/73 96 06/16/21 10:17 90/50 06/16/21 07:38 97.7 F 67 88/56 95 06/16/21 04:40 97.6 F 62 16 83/55 96 06/16/21 03:00 97.8 F 61 18 79/52 96 06/15/21 23:57 97.6 F 82 18 89/56 95 06/15/21 22:00 110 H 06/15/21 20:20 97.6 F 110 H 18 95/61 96 06/15/21 20:00 97 06/15/21 16:55 20 06/15/21 16:33 98.0 F 70 105/61 94 - Physical Examination General: No Apparent Distress HEENT: Positive: PERRL, Normocephaly Neck: Positive: trachea midline Cardiac: Positive: irregularly irregular Lungs: Positive: Decreased Breath Sounds Neuro: Positive: Grossly Intact Abdomen: Positive: Soft Skin: Positive: Bruising, Other (lesiosn BUE) Extremities: Present: upper extr. pulses, edema - Labs and Meds CBC 06/16/21 Range/Units 04:08 Hgb 14.1 (11.8-15.2) gm/dl Hct 41.0 (35.5-45.6) % Plt Count 117 L (140-440) K/mm3 Comprehensive Metabolic Panel 06/16/21 Range/Units 04:08 Sodium 134 L (137-145) mmol/L Potassium 4.0 (3.6-5.0) mmol/L Chloride 106.2 (98-107) mmol/L Carbon Dioxide 15 L (22-30) mmol/L BUN 13 (9-20) mg/dL Creatinine 1.3 (0.8-1.3) mg/dL Glucose 111 H (75-100) mg/dL Calcium 7.9 L (8.4-10.2) mg/dL - Imaging and Cardiology Echo: report reviewed - Telemetry EKG Rhythm: Atrial Fibrillation - EKG Supraventricular dysrhythmia: atrial fibrillation Repolarization changes or abnormalities: nonspecific abnormality, ST segment, and/or T wave
--- NOTE | 2021-06-16 14:41 | Progress Note ---
Assessment and Plan Cultures: Blood culture MSSA 1 bottle Blood culture 06/12/2021 no growth so far. A/P: 61 yo M PMHx cirrhosis, EtOH abuse now with: #MSSA bacteremia: Source is likely from suppurative thrombophlebitis, nurses noted purulent discharge from the PIV. Currently on Ancef, agree #Ascites: Status post paracentesis, weight analysis #Cirrhosis: Secondary to alcohol abuse Recs: -Continue Ancef 2 g every 8 hours to complete 4 weeks. -Case management helping for Ancef until 07/10/2021 -Okay for midline on discharge Thank you for the consult, we will continue to follow. Mike Garcia MD [facility] ([facility]) O: [phone] F: [phone] Subjective Date of service: 06/16/21 Principal diagnosis: A. fib with RVR Interval history: Afebrile, normal white count. Blood cultures otherwise negative. No new issues. Objective - Exam Narrative Exam: Physical Exam: Constitutional: Alert, cooperative. No acute distress Head, Ears, Nose: Normocephalic, atraumatic. External ears, nose normal Eyes: Conjunctivae/corneas clear. No icterus. No ptosis. Neck: Supple, no meningeal signs Oral: dentition fair, no thrush Cardiovascular: S1, S2 normal. Respiratory: Good air entry, clear to auscultation bilaterally GI: Soft, non-tender; bowel sounds normal. No peritoneal signs. +ascites Musculoskeletal: No pedal edema, no cyanosis. Skin: No rash or abscess Hem/Lymphatic: No palpable cervical or supraclavicular nodes. No lymphangitis Psych: Mood ok. Affect normal Neurological: Awake, alert, oriented. No gross abnormality - Constitutional Vitals: Vital Signs Temp Pulse Resp BP Pulse Ox 98.3 F 61 20 103/73 96 06/16/21 11:13 06/16/21 11:13 06/16/21 11:13 06/16/21 11:13 06/16/21 11:13 Temperature -Last 24 Hours Temperature 98.3 F Temperature 97.7 F Temperature 97.6 F Temperature 97.8 F Temperature 97.6 F Temperature 97.6 F Temperature 98.0 F - Labs CBC & Chem 7: 06/16/21 04:08 06/16/21 04:08 Labs: Abnormal lab results 06/14/21 06/15/21 06/16/21 Range/Units 19:06 17:30 04:08 Plt Count 117 L (140-440) K/mm3 Heparin Anti-Xa Level 0.16 L 0.10 L (0.3-0.7) U.I./ml Sodium (137-145) mmol/L Carbon Dioxide (22-30) mmol/L Glucose (75-100) mg/dL Calcium (8.4-10.2) mg/dL 06/16/21 06/16/21 06/16/21 Range/Units 04:08 04:08 12:15 Plt Count (140-440) K/mm3 Heparin Anti-Xa Level < 0.10 L 0.23 L (0.3-0.7) U.I./ml Sodium 134 L (137-145) mmol/L Carbon Dioxide 15 L (22-30) mmol/L Glucose 111 H (75-100) mg/dL Calcium 7.9 L (8.4-10.2) mg/dL
--- NOTE | 2021-06-16 16:02 | Progress Note ---
Assessment and Plan Assessment and plan: #Hypotension-improved -Likely secondary to cirrhosis -Home blood pressure medications currently held -Initiating midodrine 10 mg 3 times daily as patient's hypotension will be chronic in the setting of decompensated cirrhosis #Atrial fibrillation with RVR-resolved -Discontinued heparin gtt -Cardioversion unable to be completed secondary to esophageal varices history. -Discontinued amiodarone drip and continuing with p.o. amiodarone 200 mg twice daily. Given increased risk for bleeding, patient will not be discharged with anticoagulation. -Cardiology following, assistance appreciated #Decompensated cirrhosis with ascites #Esophageal varices -Child Monson score class B; meldNA score 15. Patient is not currently a transplant candidate as he continues alcohol consumption. -Spironolactone, propranolol and diuretics held due to hypotension -Low clinical suspicion for SBP -Status post paracentesis with removal of 10 L on 06/15/2021. Patient received albumin supplementation. #Hepatic encephalopathyresolved -Patient with waxing and waning mental status -Continue lactulose and titrate to at least 3 bowel movements per day #Suppurative thrombophlebitis #Staph aureus bacteremia -Per nursing and patient pus expressed from right brachial vein with IV removal -Blood cultures: 02/17 cultures growing MS staph aureus -Repeat blood cultures 06/12: NGTD x24hrs -TTE on 06/10 no vegetations noted -discontinue vancomycin. Continue Ancef 2 g every 8 hours for total of 4 weeks (completes 07/10/2021). Midline ordered. -Right upper extremity Doppler showed occlusive superficial thrombus within the right basilic and cephalic vein -ID consultation; appreciate recs #Thrombocytopenia- stable -likely secondary to cirrhosis -will continue to monitor #Leukopenia -Likely secondary to cirrhosis, will continue to monitor #Head injury/laceration -secondary to ground-level fall. -CT of the brain negative for acute findings #Posttraumatic stress disorder -continue Cymbalta -Psychiatry following, assistance appreciated #Advanced care planning -Disease education conducted, care plan discussed, diagnoses discussed, prognosis discussed with the patients Jolly who acknowledges understanding with care plan. -Time: +30 min #Lactic acidosis-resolved #Obesity #Weight loss counseling #Exercise counseling - BMI 30.2 - Counseled patient on the importance of weight loss, incorporating exercise, and dietary changes (lean meats, fresh fruits and vegetables, and water intake). Patient expresses understanding. - Time: +15 min Discussion: Very detailed and guerda discussion was had with the patient today as his encephalopathy has completely resolved. It was explained to the patient that his decompensated cirrhosis in the setting of continued alcohol consumption will result in repeated hospitalizations that we will simply resolve the encephalopathy and perform paracenteses; however, the patient's liver failure will continue to worsen with time. It was recommended that the patient consider home hospice given his worsening prognosis. The patient was amendable to the discussion. Further attempts will be made at possible home hospice discharge. #Advanced care planning -Disease education conducted, care plan discussed, diagnoses discussed, prognosis discussed, and patient acknowledges understanding with care plan -Time: +30 min Disposition Plan: Pending discharge home tomorrow Total Time Spent with Patient (Minutes): 45 minutes History Interval history: No acute events overnight. Hospitalist Physical - Constitutional Vitals: Temp Pulse Resp BP Pulse Ox 99.3 F 67 20 96/57 97 06/16/21 15:45 06/16/21 15:45 06/16/21 15:45 06/16/21 15:45 06/16/21 15:45 General appearance: Present: no acute distress - EENT Eyes: Present: PERRL, EOM intact ENT: hearing intact, clear oral mucosa, dentition normal - Neck Neck: Present: supple, normal ROM - Respiratory Respiratory effort: normal Respiratory: bilateral: CTA - Cardiovascular Rhythm: regular Heart Sounds: Present: S1 & S2 - Extremities Extremities: no ischemia, pulses intact, pulses symmetrical, No edema, normal te mperature, normal color Peripheral Pulses: within normal limits - Abdominal General gastrointestinal: soft, non-tender, distended (Mild ascites), normal bowel sounds - Integumentary Integumentary: Present: clear, warm, dry - Psychiatric Psychiatric: appropriate mood/affect, intact judgment & insight, memory intact, cooperative - Neurologic Neurologic: CNII-XII intact, moves all extremities - Allied Health Allied health notes reviewed: nursing Results - Labs CBC & Chem 7: 06/16/21 04:08 06/16/21 04:08 Labs: Laboratory Last Values WBC 5.6 K/mm3 (4.5-11.0) 06/15/21 05: RBC 4.08 M/mm3 (3.65-5.03) 06/15/21 05:22 Hgb 14.1 gm/dl (11.8-15.2) 06/16/21 04:08 Hct 41.0 % (35.5-45.6) 06/16/21 04:08 MCV 104 fl (84-94) H 06/15/21 05:22 MCH 36 pg (28-32) H 06/15/21 05:22 MCHC 34 % (32-34) 06/15/21 05:22 RDW 15.3 % (13.2-15.2) H 06/15/21 05:22 Plt Count 117 K/mm3 (140-440) L 06/16/21 04:08 Lymph % (Auto) 6.2 % (13.4-35.0) L 06/10/21 04:59 Russell % (Auto) 9.7 % (0.0-7.3) H 06/10/21 04:59 Eos % (Auto) 1.1 % (0.0-4.3) 06/10/21 04:59 Baso % (Auto) 1.2 % (0.0-1.8) 06/10/21 04:59 Lymph # (Auto) 0.2 K/mm3 (1.2-5.4) L 06/10/21 04:59 Russell # (Auto) 0.4 K/mm3 (0.0-0.8) 06/10/21 04:59 Eos # (Auto) 0.0 K/mm3 (0.0-0.4) 06/10/21 04:59 Baso # (Auto) 0.0 K/mm3 (0.0-0.1) 06/10/21 04:59 Seg Neutrophils % 81.8 % (40.0-70.0) H 06/10/21 04:59 Seg Neutrophils # 3.2 K/mm3 (1.8-7.7) 06/10/21 04:59 PT 13.9 Sec. (12.2-14.9) 06/15/21 05:22 INR 0.97 (0.87-1.13) 06/15/21 05:22 APTT 30.6 Sec. (24.2-36.6) 06/10/21 13:20 Heparin Anti-Xa Level 0.23 U.I./ml (0.3-0.7) L 06/16/21 12:15 Sodium 134 mmol/L (137-145) L 06/16/21 04:08 Potassium 4.0 mmol/L (3.6-5.0) 06/16/21 04:08 Chloride 106.2 mmol/L (98-107) 06/16/21 04:08 Carbon Dioxide 15 mmol/L (22-30) L 06/16/21 04:08 Anion Gap 17 mmol/L 06/16/21 04:08 BUN 13 mg/dL (9-20) 06/16/21 04:08 Creatinine 1.3 mg/dL (0.8-1.3) 06/16/21 04:08 Estimated GFR 57 ml/min 06/16/21 04:08 BUN/Creatinine Ratio 10 % 06/16/21 04:08 Glucose 111 mg/dL (75-100) H 06/16/21 04:08 POC Glucose 132 mg/dL (70-105) H 06/15/21 07:33 Lactic Acid 1.50 mmol/L (0.7-2.0) 06/09/21 00:14 Calcium 7.9 mg/dL (8.4-10.2) L 06/16/21 04:08 Magnesium 1.80 mg/dL (1.7-2.3) 06/11/21 05:55 Total Bilirubin 1.20 mg/dL (0.1-1.2) 06/13/21 06:34 Direct Bilirubin 0.5 mg/dL (0-0.2) H 06/13/21 06:34 Indirect Bilirubin 0.7 mg/dL 06/13/21 06:34 AST 30 units/L (5-40) 06/13/21 06:34 ALT 18 units/L (7-56) 06/13/21 06:34 Alkaline Phosphatase 167 units/L (35-129) H 06/13/21 06:34 Total Protein 4.8 g/dL (6.3-8.2) L 06/13/21 06:34 Albumin 2.3 g/dL (3.9-5) L 06/13/21 06:34 Albumin/Globulin Ratio 0.9 % 06/13/21 06:34 TSH 1.640 mlU/mL (0.270-4.200) 06/10/21 13:20 Urine Color Tamela (Yellow) 06/09/21 19:22 Urine Turbidity Clear (Clear) 06/09/21 19:22 Urine pH 5.0 (5.0-7.0) 06/09/21 19:22 Ur Specific [place] 1.017 (1.003-1.030) 06/09/21 19:22 Urine Protein <15 mg/dl mg/dL (Negative) 06/09/21 19:22 Urine Glucose (UA) Neg mg/dL (Negative) 06/09/21 19:22 Urine Ketones Neg mg/dL (Negative) 06/09/21 19:22 Urine Blood Neg (Negative) 06/09/21 19: Urine Nitrite Neg (Negative) 06/09/21 19: Urine Bilirubin Neg (Negative) 06/09/21 19:22 Urine Urobilinogen 2.0 mg/dL (<2.0) 06/09/21 19:22 Ur Leukocyte Esterase Neg (Negative) 06/09/21 19:22 Urine WBC (Auto) < 1.0 /HPF (0.0-6.0) 06/09/21 19:22 Urine RBC (Auto) < 1.0 /HPF (0.0-6.0) 06/09/21 19:22 U Epithel Cells (Auto) < 1.0 /HPF (0-13.0) 06/09/21 19:22 Urine Mucus Few /HPF 06/09/21 19:22 SARS-CoV-2 (PCR) Negative (Negative) 06/11/21 10:00 Microbiology: Microbiology 06/10/21 13:24 Peripheral/Venous Blood Culture - Final Staphylococcus Aureus 06/10/21 13:20 Peripheral/Venous Blood Culture - Final NO GROWTH AFTER 5 DAYS 06/12/21 15:31 Peripheral/Venous Blood Culture - Preliminary NO GROWTH AFTER 72 HOURS 06/12/21 15:31 Peripheral/Venous Blood Culture - Preliminary NO GROWTH AFTER 72 HOURS Adams/IV: Voiding Method Indwelling Catheter Active Medications - Current Medications Current Medications: Generic Name Dose Route Start Last Admin Trade Name Freq PRN Reason Stop Dose Admin Acetaminophen 650 mg 06/09/21 06:19 06/11/21 21:34 Acetaminophen 325 Mg Tab PO 650 mg Q4H PRN Administration Pain MILD(1-3)/Fever >100.5/GONSALES Amiodarone HCl 200 mg 06/14/21 11:00 06/16/21 10:19 Amiodarone 200 Mg Tab PO 200 mg BID TOY Administration Bisacodyl 10 mg 06/09/21 13:39 Bisacodyl 10 Mg Rect Supp IA QDAY PRN Constipation Duloxetine HCl 30 mg 06/10/21 15:00 06/16/21 10:16 Duloxetine 30 Mg Cap PO 30 mg QDAY TOY Administration Folic Acid 1 mg 06/13/21 10:00 06/16/21 10:19 Folic Acid 1 Mg Tab PO 1 mg DAILY TOY Administration Cefazolin Sodium 2 gm/ Sodium 100 mls @ 200 mls/hr 06/14/21 09:00 06/16/21 02:30 Chloride IV 07/10/21 17:29 200 mls/hr Q8H TOY Administration Protocol Lactulose 20 gm 06/12/21 16:00 06/16/21 09:16 Lactulose 20 Gm/30 Ml Oral Liqd PO Not Given Q8H TOY Lorazepam 1 mg 06/12/21 16:00 06/14/21 10:03 Lorazepam 2 Mg/Ml Vial IV 1 mg Q4H PRN Administration Agitation Magnesium Hydroxide 30 ml 06/09/21 06:19 Magnesium Hydroxide (Mom) Oral Liqd Udc PO Q4H PRN Constipation Metoprolol Tartrate 12.5 mg 06/15/21 14:00 06/16/21 10:17 Metoprolol Tartrate 25 Mg Tab PO Not Given QID TOY Midodrine 10 mg 06/16/21 10:00 06/16/21 10:06 Midodrine 10 Mg Tab PO 10 mg BID TOY Administration Morphine Sulfate 2 mg 06/09/21 06:19 06/15/21 16:55 Morphine 2 Mg/1 Ml Inj IV 2 mg Q4H PRN Administration Pain, Moderate (4-6) Morphine Sulfate 4 mg 06/09/21 06:19 Morphine 4 Mg/1 Ml Inj IV Q4H PRN Pain , Severe (7-10) Ondansetron HCl 4 mg 06/09/21 06:19 Ondansetron 4 Mg/2 Ml Inj IV Q8H PRN Nausea And Vomiting Pantoprazole Sodium 40 mg 06/12/21 17:00 06/16/21 10:16 Pantoprazole 40 Mg Tab PO 40 mg QDAC TOY Administration Sodium Bicarbonate 650 mg 06/16/21 10:00 06/16/21 10:16 Sodium Bicarbonate 650 Mg Tab PO 650 mg BID TOY Administration Sodium Chloride 10 ml 06/09/21 10:00 06/16/21 10:21 Sodium Chloride 0.9% 10 Ml Flush Syringe IV 10 ml BID TOY Administration Sodium Chloride 10 ml 06/09/21 06:19 Sodium Chloride 0.9% 10 Ml Flush Syringe IV PRN PRN LINE FLUSH
[2021-06-17] MEDS: LACTULOSE 20 GM/30 ML ORAL LIQD PO SCH ×3 (00:45→18:20)
[2021-06-17 05:35] LABS: BUN/Creatinine Ratio 14; Blood Urea Nitrogen 15 mg/dL (9-20); Calcium 8.8 mg/dL (8.4-10.2); Hemolysis Index 2
[2021-06-17] MEDS ORDERED: MIDODRINE 10 MG TAB PO SCH ×2 (09:00→11:00)
--- NOTE | 2021-06-17 10:43 | Progress Note ---
Assessment and Plan Patient is a 61-year-old male with past medical history of cirrhosis, depression, A. fib who presents to the ED on 06/08/2021 for complaint of hypotension and fall. Patient found to be in A. fib with RVR Status post fall Hypotension A. fib with RVR Lactic acidosis Hypocalcemia Hyponatremia Cirrhosis Depression Echo 06/10/2021-EF 65 to 70%. Right ventricle is mildly dilated. Right ventricle systolic function is normal left atrium mildly dilated. Large right pleural effusion. Left ventricular diastolic function is indeterminate. Patient is tachycardic Plan: Patient remains in A. fib rate rate controlled Continue metoprolol 12.5 mg p.o. twice daily with hold parameters Continue amiodarone p.o. Determined the patient is not a good candidate for long-term anticoagulation due to cirrhosis, esophageal varices, thrombocytopenia and reports of frequent falls patient has a high risk of bleed Furthermore patient's [id number] score is was 1 low to moderate risk and has had bleed score of 2. Risk of bleeding outweighs risk of anticoagulation Attempted to call patient's to discuss plan of care however unable to reach patient's Will see patient as needed Upon discharge patient should follow-up with her primary clinical trials assistant or if patient wishes may follow-up with our group in 1 to 2 weeks after discharge Patient seen in conjunction with Dr. Mena who agrees with this plan of care - Patient Problems (1) Atrial fibrillation with RVR Current Visit: Yes Status: Acute (2) Hypocalcemia Current Visit: Yes Status: Acute (3) Hypotension Current Visit: Yes Status: Acute (4) Lactic acidosis Current Visit: Yes Status: Acute (5) Head injury Current Visit: No Status: Acute Subjective Date of service: 06/17/21 Principal diagnosis: A. fib with RVR Interval history: Patient resting in bed in no acute distress Patient remains in A. fib rate 80s to 100s Objective Vital Signs Temp Pulse Resp BP BP Pulse Ox 06/17/21 07:51 97.9 F 85 18 90/56 90 06/17/21 04:30 98.0 F 69 16 91/58 82 L 06/17/21 00:00 97.6 F 91 H 16 93/62 94 06/16/21 22:00 80 93 06/16/21 19:29 97.4 F L 71 16 96/64 91 06/16/21 15:45 99.3 F 67 20 96/57 97 06/16/21 11:13 98.3 F 61 20 103/73 96 - Physical Examination General: No Apparent Distress HEENT: Positive: PERRL, Normocephaly Neck: Positive: trachea midline Cardiac: Positive: irregularly irregular Lungs: Positive: Normal Breath Sounds Neuro: Positive: Grossly Intact Abdomen: Positive: Soft Skin: Positive: Bruising, Other (lesiosn BUE) Extremities: Present: upper extr. pulses, edema - Labs and Meds Comprehensive Metabolic Panel 06/17/21 Range/Units 04:50 Sodium 133 L (137-145) mmol/L Potassium 3.6 (3.6-5.0) mmol/L Chloride 106.5 (98-107) mmol/L Carbon Dioxide 15 L (22-30) mmol/L BUN 15 (9-20) mg/dL Creatinine 1.1 (0.8-1.3) mg/dL Glucose 112 H (75-100) mg/dL Calcium 8.8 (8.4-10.2) mg/dL - Imaging and Cardiology Echo: report reviewed - Telemetry EKG Rhythm: Atrial Fibrillation - EKG Supraventricular dysrhythmia: atrial fibrillation Repolarization changes or abnormalities: nonspecific abnormality, ST segment, and/or T wave
[2021-06-17] MEDS: SODIUM BICARBONATE 650 MG TAB PO SCH ×2 (10:54→22:58)
[2021-06-17] MEDS: DULoxetine 30 MG CAP PO SCH (11:05)
[2021-06-17] MEDS: AMIODARONE 200 MG TAB PO SCH ×2 (11:05→22:58)
[2021-06-17] MEDS: FOLIC ACID 1 MG TAB PO SCH (11:05)
[2021-06-17] MEDS: PANTOPRAZOLE 40 MG TAB PO SCH (11:09)
[2021-06-17] MEDS: METOPROLOL TARTRATE 25 MG TAB PO SCH ×4 (11:09→22:48)
--- NOTE | 2021-06-17 14:12 | Progress Note ---
Assessment and Plan Assessment and plan: #Hypotension-improved -Likely secondary to cirrhosis -Home blood pressure medications currently held -Initiating midodrine 15 mg 3 times daily as patient's hypotension will be chronic in the setting of decompensated cirrhosis #Atrial fibrillation with RVR-resolved -Discontinued heparin gtt -Cardioversion unable to be completed secondary to esophageal varices history. -Discontinued amiodarone drip and continuing with p.o. amiodarone 200 mg twice daily. Given increased risk for bleeding, patient will not be discharged with anticoagulation. -Cardiology following, assistance appreciated #Decompensated alcoholic cirrhosis with ascitesstable #Esophageal varices -Child Monson score class B; meldNA score 15. Patient is not currently a transplant candidate as he continues alcohol consumption. -Spironolactone, propranolol and diuretics held due to hypotension -Low clinical suspicion for SBP -Status post paracentesis with removal of 10 L on 06/15/2021. Patient received albumin supplementation. #Hepatic encephalopathyresolved -Patient with waxing and waning mental status -Continue lactulose and titrate to at least 3 bowel movements per day #Suppurative thrombophlebitis #Staph aureus bacteremia -Per nursing and patient pus expressed from right brachial vein with IV removal -Blood cultures: 02/17 cultures growing MS staph aureus -Repeat blood cultures 06/12: NGTD x24hrs -TTE on 06/10 no vegetations noted -discontinue vancomycin. Continue Ancef 2 g every 8 hours for total of 4 weeks (completes 07/10/2021). Midline ordered. -Right upper extremity Doppler showed occlusive superficial thrombus within the right basilic and cephalic vein -ID consultation; appreciate recs #Thrombocytopenia- stable -likely secondary to cirrhosis -will continue to monitor #Leukopenia -Likely secondary to cirrhosis, will continue to monitor #Head injury/laceration -secondary to ground-level fall. -CT of the brain negative for acute findings #Posttraumatic stress disorder -continue Cymbalta -Psychiatry following, assistance appreciated #Lactic acidosis-resolved #Advanced care planning -Disease education conducted, care plan discussed, diagnoses discussed, prognosis discussed with the patients Jolly who acknowledges understanding with care plan. -Time: +30 min #Obesity #Weight loss counseling #Exercise counseling - BMI 30.2 - Counseled patient on the importance of weight loss, incorporating exercise, and dietary changes (lean meats, fresh fruits and vegetables, and water intake). Patient expresses understanding. - Time: +15 min #Alcohol dependence - Counseled patient on the importance of ETOH cessation. Assess patient's current ETOH consumption. Assisted with trying to arrange resources for patient to adequately work towards ETOH cessation. Patient expresses understanding. -Time: +15 mins Discussion: Very detailed and guerad discussion was had with the patient today as his encephalopathy has completely resolved. It was explained to the patient that his decompensated cirrhosis in the setting of continued alcohol consumption will result in repeated hospitalizations that we will simply resolve the enceph alopathy and perform paracenteses; however, the patient's liver failure will continue to worsen with time. It was recommended that the patient consider home hospice given his worsening prognosis. The patient was amendable to the discussion. Further attempts will be made at possible home hospice discharge. #Discharge planning - Patient is pending ability to have IV antibiotics that are prescribed in [place] be administered in [place]. Also pending transport as the patient resides in [place], [place]. - Case management has been made aware. #Advanced care planning -Disease education conducted, care plan discussed, diagnoses discussed, prognosis discussed, and patient acknowledges understanding with care plan -Time: +30 min Disposition Plan: Continue medical management Total Time Spent with Patient (Minutes): 45 minutes History Interval history: No acute events overnight. Hospitalist Physical - Constitutional Vitals: Temp Pulse Resp BP Pulse Ox 97.9 F 82 18 90/56 96 06/17/21 07:51 06/17/21 10:00 06/17/21 07:51 06/17/21 07:51 06/17/21 10:00 General appearance: Present: no acute distress, cachectic - EENT Eyes: Present: PERRL, EOM intact ENT: hearing intact, clear oral mucosa, dentition normal - Neck Neck: Present: supple, normal ROM - Respiratory Respiratory effort: normal Respiratory: bilateral: diminished - Cardiovascular Rhythm: regular Heart Sounds: Present: S1 & S2 - Extremities Extremities: no ischemia, pulses intact, pulses symmetrical, normal temperature, normal color Extremity abnormal: edema (1+ pitting edema bilateral lower extremities) Peripheral Pulses: within normal limits - Abdominal General gastrointestinal: soft, non-tender, distended (Mild ascites), normal bowel sounds - Integumentary Integumentary: Present: warm, dry, erythema (Erythema and scabbed wounds on bilateral upper extremities associated with infection) - Psychiatric Psychiatric: appropriate mood/affect, other (Limited insight about overall prognosis in the setting of decompensated cirrhosis + alcohol dependence) - Neurologic Neurologic: CNII-XII intact, moves all extremities - Allied Health Allied health notes reviewed: nursing Results - Labs CBC & Chem 7: 06/16/21 04:08 06/17/21 04:50 Labs: Laboratory Last Values WBC 5.6 K/mm3 (4.5-11.0) 06/15/21 05:22 RBC 4.08 M/mm3 (3.65-5.03) 06/15/21 05:22 Hgb 14.1 gm/dl (11.8-15.2) 06/16/21 04:08 Hct 41.0 % (35.5-45.6) 06/16/21 04:08 MCV 104 fl (84-94) H 06/15/21 05:22 MCH 36 pg (28-32) H 06/15/21 05:22 MCHC 34 % (32-34) 06/15/21 05:22 RDW 15.3 % (13.2-15.2) H 06/15/21 05:22 Plt Count 117 K/mm3 (140-440) L 06/16/21 04:08 Lymph % (Auto) 6.2 % (13.4-35.0) L 06/10/21 04:59 Porter % (Auto) 9.7 % (0.0-7.3) H 06/10/21 04:59 Eos % (Auto) 1.1 % (0.0-4.3) 06/10/21 04:59 Baso % (Auto) 1.2 % (0.0-1.8) 06/10/21 04:59 Lymph # (Auto) 0.2 K/mm3 (1.2-5.4) L 06/10/21 04:59 Porter # (Auto) 0.4 K/mm3 (0.0-0.8) 06/10/21 04:59 Eos # (Auto) 0.0 K/mm3 (0.0-0.4) 06/10/21 04:59 Baso # (Auto) 0.0 K/mm3 (0.0-0.1) 06/10/21 04:59 Seg Neutrophils % 81.8 % (40.0-70.0) H 06/10/21 04:59 Seg Neutrophils # 3.2 K/mm3 (1.8-7.7) 06/10/21 04:59 PT 13.9 Sec. (12.2-14.9) 06/15/21 05:22 INR 0.97 (0.87-1.13) 06/15/21 05:22 APTT 30.6 Sec. (24.2-36.6) 06/10/21 13:20 Heparin Anti-Xa Level 0.23 U.I./ml (0.3-0.7) L 06/16/21 12:15 Sodium 133 mmol/L (137-145) L 06/17/21 04:50 Potassium 3.6 mmol/L (3.6-5.0) 06/17/21 04:50 Chloride 106.5 mmol/L (98-107) 06/17/21 04:50 Carbon Dioxide 15 mmol/L (22-30) L 06/17/21 04:50 Anion Gap 15 mmol/L 06/17/21 04:50 BUN 15 mg/dL (9-20) 06/17/21 04:50 Creatinine 1.1 mg/dL (0.8-1.3) 06/17/21 04:50 Estimated GFR > 60 ml/min 06/17/21 04:50 BUN/Creatinine Ratio 14 % 06/17/21 04:50 Glucose 112 mg/dL (75-100) H 06/17/21 04:50 POC Glucose 132 mg/dL (70-105) H 06/15/21 07:33 Lactic Acid 1.50 mmol/L (0.7-2.0) 06/09/21 00:14 Calcium 8.8 mg/dL (8.4-10.2) 06/17/21 04:50 Magnesium 1.80 mg/dL (1.7-2.3) 06/11/21 05:55 Total Bilirubin 1.20 mg/dL (0.1-1.2) 06/13/21 06:34 Direct Bilirubin 0.5 mg/dL (0-0.2) H 06/13/21 06:34 Indirect Bilirubin 0.7 mg/dL 06/13/21 06:34 AST 30 units/L (5-40) 06/13/21 06:34 ALT 18 units/L (7-56) 06/13/21 06:34 Alkaline Phosphatase 167 units/L (35-129) H 06/13/21 06:34 Total Protein 4.8 g/dL (6.3-8.2) L 06/13/21 06:34 Albumin 2.3 g/dL (3.9-5) L 06/13/21 06:34 Albumin/Globulin Ratio 0.9 % 06/13/21 06:34 TSH 1.640 mlU/mL (0.270-4.200) 06/10/21 13:20 Urine Color Tamela (Yellow) 06/09/21 19: Urine Turbidity Clear (Clear) 06/09/21 19: Urine pH 5.0 (5.0-7.0) 06/09/21 19: Ur Specific [place] 1.017 (1.003-1.030) 06/09/21 19: Urine Protein <15 mg/dl mg/dL (Negative) 06/09/21 19:22 Urine Glucose (UA) Neg mg/dL (Negative) 06/09/21 19: Urine Ketones Neg mg/dL (Negative) 06/09/21 19:22 Urine Blood Neg (Negative) 06/09/21 19:22 Urine Nitrite Neg (Negative) 06/09/21 19:22 Urine Bilirubin Neg (Negative) 06/09/21 19:22 Urine Urobilinogen 2.0 mg/dL (<2.0) 06/09/21 19:22 Ur Leukocyte Esterase Neg (Negative) 06/09/21 19:22 Urine WBC (Auto) < 1.0 /HPF (0.0-6.0) 06/09/21 19:22 Urine RBC (Auto) < 1.0 /HPF (0.0-6.0) 06/09/21 19:22 U Epithel Cells (Auto) < 1.0 /HPF (0-13.0) 06/09/21 19:22 Urine Mucus Few /HPF 06/09/21 19:22 SARS-CoV-2 (PCR) Negative (Negative) 06/11/21 10:00 Microbiology: Microbiology 06/12/21 15:31 Peripheral/Venous Blood Culture - Preliminary NO GROWTH AFTER 4 DAYS 06/12/21 15:31 Peripheral/Venous Blood Culture - Preliminary NO GROWTH AFTER 4 DAYS Adams/IV: Voiding Method Indwelling Catheter Active Medications - Current Medications Current Medications: Generic Name Dose Route Start Last Admin Trade Name Freq PRN Reason Stop Dose Admin Acetaminophen 650 mg 06/09/21 06:19 06/11/21 21:34 Acetaminophen 325 Mg Tab PO 650 mg Q4H PRN Administration Pain MILD(1-3)/Fever >100.5/GONSALES Amiodarone HCl 200 mg 06/14/21 11:00 06/17/21 11:05 Amiodarone 200 Mg Tab PO 200 mg BID TOY Administration Bisacodyl 10 mg 06/09/21 13:39 Bisacodyl 10 Mg Rect Supp OR QDAY PRN Constipation Duloxetine HCl 30 mg 06/10/21 15:00 06/17/21 11:05 Duloxetine 30 Mg Cap PO 30 mg QDAY TOY Administration Folic Acid 1 mg 06/13/21 10:00 06/17/21 11:05 Folic Acid 1 Mg Tab PO 1 mg DAILY TOY Administration Cefazolin Sodium 2 gm/ Sodium 100 mls @ 200 mls/hr 06/14/21 09:00 06/17/21 01:45 Chloride IV 07/10/21 17:29 200 mls/hr Q8H TOY Administration Protocol Lactulose 10 gm 06/17/21 08:00 06/17/21 11:09 Lactulose 20 Gm/30 Ml Oral Liqd PO 10 gm Q8H TOY Administration Lorazepam 1 mg 06/12/21 16:00 06/14/21 10:03 Lorazepam 2 Mg/Ml Vial IV 1 mg Q4H PRN Administration Agitation Magnesium Hydroxide 30 ml 06/09/21 06:19 Magnesium Hydroxide (Mom) Oral Liqd Udc PO Q4H PRN Constipation Metoprolol Tartrate 12.5 mg 06/15/21 14:00 06/17/21 11:09 Metoprolol Tartrate 25 Mg Tab PO Not Given QID [facility] Midodrine 15 mg 06/17/21 13:00 Midodrine 5 Mg Tab PO 0900,1300,1700 [facility] Morphine Sulfate 2 mg 06/09/21 06:19 06/15/21 16:55 Morphine 2 Mg/1 Ml Inj IV 2 mg Q4H PRN Administration Pain, Moderate (4-6) Morphine Sulfate 4 mg 06/09/21 06:19 Morphine 4 Mg/1 Ml Inj IV Q4H PRN Pain , Severe (7-10) Ondansetron HCl 4 mg 06/09/21 06:19 Ondansetron 4 Mg/2 Ml Inj IV Q8H PRN Nausea And Vomiting Pantoprazole Sodium 40 mg 06/12/21 17:00 06/17/21 11:09 Pantoprazole 40 Mg Tab PO 40 mg QDAC TOY Administration Sodium Bicarbonate 650 mg 06/16/21 10:00 06/17/21 10:54 Sodium Bicarbonate 650 Mg Tab PO 650 mg BID TOY Administration Sodium Chloride 10 ml 06/09/21 10:00 06/17/21 10:55 Sodium Chloride 0.9% 10 Ml Flush Syringe IV 10 ml BID TOY Administration Sodium Chloride 10 ml 06/09/21 06:19 Sodium Chloride 0.9% 10 Ml Flush Syringe IV PRN PRN LINE FLUSH Nutrition/Malnutrition Assess - Dietary Evaluation Nutrition/Malnutrition Findings: Nutrition Notes Start: 06/16/21 17:03 Freq: Status: Active Protocol: Document 06/16/21 17:03 EDISON (Rec: 06/16/21 17:20 EDISON [id number]) Nutrition Notes Need for Assessment generated from: LOS Initial or Follow up Assessment Other Pertinent Diagnosis Cirrhosis, Ascites, EtOH dependance, Bacteremia, Esophageal Varices ... Current Diet Cardiac Diet (since D 06/12). Labs/Tests 06/16: Na 134, CO2 15, Glu 111 , Ca 7.9. Pertinent Medications 06/16: Folic Acid, others nutritional;ly unremarkable. Height 5 ft 7 in Weight 87.6 kg [place] Body Weight (kg) 67.27 BMI 30.2 Intake Prior to Admission Good Weight change and time frame Pt denies having loss body weight [employer]. Weight Status Obese Subjective/Other Information RD consult for LOS assessment. Pt's PO intake of meals has been Poor in average, varying from 0 to 75%, as appetite changes are reported by direct care staffer, according to Physical Assessment History notes and Progress notes. I will prescribe Dietary Supplements to compensate for poor PO intake of meals. Pt is on Room Air, O2 saturation @ 97%, according to Physical Assessment History notes. Pt has missing teeth, according to Physical Assessment History notes. Percent of energy/protein needs met: Prescribed Cardiac Diet provides for energy/protein needs (2,230 Kcal/85 g) during LOS; additionally, Dietary Supplements will compensate for possible poor or insufficient PO intake of meals with 700 Kcal and 40 g of protein. Burn Absent Trauma Absent GI Symptoms None Food Allergy No Skin Integrity/Comment Unspecified area of concern. Current % PO Poor (25-49%) Minimum of two criteria No #1 Nutrition Diagnosis Inadequate protein-energy intake Etiology EtOH dependance and associated chronic metabolic conditions. As Evidenced by Signs and Symptoms Pt's PO intake of meals has been Poor in average, varying from 0 to 75%, as appetite changes are reported by direct care staffer, according to Physical Assessment History notes and Progress notes. Is patient on ventilator? No Is Patient Ambulatory and/or Out of Bed Yes REE-([place]-St. Jeor-ambulatory/OOB) [ 2144.519 NUTR.MSJOOB] Kcal/Kg value to use for calculation 20 Approximate Energy Requirements Using 1752 kcal/Kg Calculation Used for Recommendations Kcal/kg Additional Notes Protein: 1-1.2 g/Kg AdjBW; 78- 94 g/day. Fluids: 1 ml/Kcal, or as per MD. Nutrition Intervention Change Diet Order: Continue Cardiac Diet, as tolerated. Add Supplement/Snack (indicate name/kcal Start 8 fl oz Ensure Enlive; /protein ) BID. Provides kCal: 700 Provides Protein (gm) 40 Goal #1 Compensate, through dietary supplementation, for possible poor or insufficient PO intake of meals during LOS. Goal #2 Maintain body weight within +/ -3% of admission body weight during LOS. Follow-Up By: 06/23/21 Additional Comments Continue monitoring food tolerance, %PO intake of meals , and BM.
[2021-06-17] MEDS: MIDODRINE 5 MG TAB PO SCH ×2 (14:19→18:19)
--- NOTE | 2021-06-17 18:36 | Progress Note ---
Assessment and Plan Cultures: Blood culture MSSA 1 bottle Blood culture 06/12/2021 no growth so far. A/P: 61 yo M PMHx cirrhosis, EtOH abuse now with: #MSSA bacteremia: Source is likely from suppurative thrombophlebitis, nurses noted purulent discharge from the PIV. Currently on Ancef, agree #Ascites: Status post paracentesis, weight analysis #Cirrhosis: Secondary to alcohol abuse Recs: -Continue Ancef 2 g every 8 hours to complete 4 weeks. -Case management helping for Ancef until 07/10/2021 -Okay for midline on discharge Thank you for the consult, we will sign off. Please call questions. Mike Garcia MD [facility] ([facility]) O: [phone] F: [phone] Subjective Date of service: 06/17/21 Principal diagnosis: A. fib with RVR Interval history: Afebrile, normal white count. Objective - Exam Narrative Exam: Physical Exam: Constitutional: Alert, cooperative. No acute distress Head, Ears, Nose: Normocephalic, atraumatic. External ears, nose normal Eyes: Conjunctivae/corneas clear. No icterus. No ptosis. Neck: Supple, no meningeal signs Oral: dentition fair, no thrush Cardiovascular: S1, S2 normal. Respiratory: Good air entry, clear to auscultation bilaterally GI: Soft, non-tender; bowel sounds normal. No peritoneal signs. +ascites Musculoskeletal: No pedal edema, no cyanosis. Skin: No rash or abscess Hem/Lymphatic: No palpable cervical or supraclavicular nodes. No lymphangitis Psych: Mood ok. Affect normal Neurological: Awake, alert, oriented. No gross abnormality - Constitutional Vitals: Vital Signs Temp Pulse Resp BP Pulse Ox 98.3 F 87 16 96/65 99 06/17/21 16:04 06/17/21 16:04 06/17/21 16:04 06/17/21 16:04 06/17/21 16:04 Temperature -Last 24 Hours Temperature 98.3 F Temperature 97.9 F Temperature 98.0 F Temperature 97.6 F Temperature 97.4 F - Labs CBC & Chem 7: 06/16/21 04:08 06/17/21 04:50 Labs: Abnormal lab results 06/17/21 Range/Units 04:50 Sodium 133 L (137-145) mmol/L Carbon Dioxide 15 L (22-30) mmol/L Glucose 112 H (75-100) mg/dL
[2021-06-18] MEDS: LACTULOSE 20 GM/30 ML ORAL LIQD PO SCH ×3 (02:47→16:54)
[2021-06-18 06:09] LABS: Hematocrit 40.1 % (35.5-45.6); Hemoglobin 13.7 gm/dl (11.8-15.2)
[2021-06-18] MEDS: AMIODARONE 200 MG TAB PO SCH ×2 (11:14→21:08)
[2021-06-18] MEDS: DULoxetine 30 MG CAP PO SCH (11:14)
[2021-06-18] MEDS: SODIUM BICARBONATE 650 MG TAB PO SCH ×2 (11:14→21:08)
[2021-06-18] MEDS: MIDODRINE 5 MG TAB PO SCH ×3 (11:14→16:54)
[2021-06-18] MEDS: PANTOPRAZOLE 40 MG TAB PO SCH (11:15)
[2021-06-18] MEDS: METOPROLOL TARTRATE 25 MG TAB PO SCH ×4 (11:15→21:08)
[2021-06-18] MEDS: FOLIC ACID 1 MG TAB PO SCH (11:15)
--- NOTE | 2021-06-18 12:57 | Progress Note ---
Assessment and Plan Assessment and plan: #Hypotension -Likely secondary to cirrhosis -Home blood pressure medications currently held -Initiating midodrine 15 mg 3 times daily as patient's hypotension will be chronic in the setting of decompensated cirrhosis #Atrial fibrillation with RVR-resolved -Discontinued heparin gtt -Cardioversion unable to be completed secondary to esophageal varices history. -Discontinued amiodarone drip and continuing with p.o. amiodarone 200 mg twice daily. Given increased risk for bleeding, patient will not be discharged with anticoagulation. -Cardiology following, assistance appreciated #Decompensated alcoholic cirrhosis with ascitesstable #Esophageal varices -Child Monson score class B; meldNA score 15. Patient is not currently a transplant candidate as he continues alcohol consumption. -Spironolactone, propranolol and diuretics held due to hypotension -Low clinical suspicion for SBP -Status post paracentesis with removal of 10 L on 06/15/2021. Patient received albumin supplementation. #Hepatic encephalopathyresolved -Patient with waxing and waning mental status -Continue lactulose and titrate to at least 3 bowel movements per day #Suppurative thrombophlebitis #Staph aureus bacteremia -Per nursing and patient pus expressed from right brachial vein with IV removal -Blood cultures: 02/17 cultures growing MS staph aureus -Repeat blood cultures 06/12: NGTD x24hrs -TTE on 06/10 no vegetations noted -discontinue vancomycin. Continue Ancef 2 g every 8 hours for total of 4 weeks (completes 07/10/2021). Midline ordered. -Right upper extremity Doppler showed occlusive superficial thrombus within the right basilic and cephalic vein -ID consultation; appreciate recs #Thrombocytopenia- stable -likely secondary to cirrhosis -will continue to monitor #Leukopenia -Likely secondary to cirrhosis, will continue to monitor #Head injury/laceration -secondary to ground-level fall. -CT of the brain negative for acute findings #Posttraumatic stress disorder -continue Cymbalta -Psychiatry following, assistance appreciated #Lactic acidosis-resolved #Advanced care planning -Disease education conducted, care plan discussed, diagnoses discussed, prognosis discussed with the patients Jolly who acknowledges understanding with care plan. -Time: +30 min #Obesity #Weight loss counseling #Exercise counseling - BMI 30.2 - Counseled patient on the importance of weight loss, incorporating exercise, and dietary changes (lean meats, fresh fruits and vegetables, and water intake). Patient expresses understanding. - Time: +15 min #Alcohol dependence - Counseled patient on the importance of ETOH cessation. Assess patient's current ETOH consumption. Assisted with trying to arrange resources for patient to adequately work towards ETOH cessation. Patient expresses understanding. -Time: +15 mins Discussion: Very detailed and guerda discussion was had with the patient today as his encephalopathy has completely resolved. It was explained to the patient that his decompensated cirrhosis in the setting of continued alcohol consumption will result in repeated hospitalizations that we will simply resolve the encephalopathy and perform paracenteses; however, the patient's liver failure will continue to worsen with time. It was recommended that the patient consider home hospice given his worsening prognosis. The patient was amendable to the discussion. Further attempts will be made at possible home hospice discharge. #Discharge planning - Patient is pending ability to have IV antibiotics that are prescribed in [place] be administered in [place]. Also pending transport as the jv ent resides in [place], [place]. - Case management has been made aware. #Advanced care planning -Disease education conducted, care plan discussed, diagnoses discussed, prognosis discussed, and patient acknowledges understanding with care plan -Time: +30 min Disposition Plan: Continue medical management Total Time Spent with Patient (Minutes): 45 minutes History Interval history: No acute events overnight. Hospitalist Physical - Constitutional Vitals: Temp Pulse Resp BP Pulse Ox 97.9 F 96 H 16 95/76 96 06/18/21 11:22 06/18/21 11:22 06/18/21 11:22 06/18/21 11:22 06/18/21 11:22 General appearance: Present: no acute distress, cachectic - EENT Eyes: Present: PERRL, EOM intact ENT: hearing intact, clear oral mucosa, dentition normal - Neck Neck: Present: supple, normal ROM - Respiratory Respiratory effort: normal Respiratory: bilateral: CTA - Cardiovascular Rhythm: regular Heart Sounds: Present: S1 & S2 - Extremities Extremities: no ischemia, pulses intact, pulses symmetrical, normal temperature Extremity abnormal: edema (2+ pitting edema bilateral lower extremities) Peripheral Pulses: within normal limits - Abdominal General gastrointestinal: soft, non-tender, distended (Mild ascites), normal bowel sounds - Integumentary Integumentary: Present: clear, warm, dry - Psychiatric Psychiatric: appropriate mood/affect, memory intact, cooperative, other (Limited insight regarding medical condition) - Neurologic Neurologic: CNII-XII intact, moves all extremities - Allied Health Allied health notes reviewed: nursing Results - Labs CBC & Chem 7: 06/18/21 05:29 06/17/21 04:50 Labs: Laboratory Last Values WBC 5.6 K/mm3 (4.5-11.0) 06/15/21 05:22 RBC 4.08 M/mm3 (3.65-5.03) 06/15/21 05:22 Hgb 13.7 gm/dl (11.8-15.2) 06/18/21 05:29 Hct 40.1 % (35.5-45.6) 06/18/21 05:29 MCV 104 fl (84-94) H 06/15/21 05:22 MCH 36 pg (28-32) H 06/15/21 05:22 MCHC 34 % (32-34) 06/15/21 05:22 RDW 15.3 % (13.2-15.2) H 06/15/21 05:22 Plt Count 162 K/mm3 (140-440) 06/18/21 05:29 Lymph % (Auto) 6.2 % (13.4-35.0) L 06/10/21 04:59 [place] % (Auto) 9.7 % (0.0-7.3) H 06/10/21 04:59 Eos % (Auto) 1.1 % (0.0-4.3) 06/10/21 04:59 Baso % (Auto) 1.2 % (0.0-1.8) 06/10/21 04:59 Lymph # (Auto) 0.2 K/mm3 (1.2-5.4) L 06/10/21 04:59 [place] # (Auto) 0.4 K/mm3 (0.0-0.8) 06/10/21 04:59 Eos # (Auto) 0.0 K/mm3 (0.0-0.4) 06/10/21 04:59 Baso # (Auto) 0.0 K/mm3 (0.0-0.1) 06/10/21 04:59 Seg Neutrophils % 81.8 % (40.0-70.0) H 06/10/21 04:59 Seg Neutrophils # 3.2 K/mm3 (1.8-7.7) 06/10/21 04:59 PT 13.9 Sec. (12.2-14.9) 06/15/21 05:22 INR 0.97 (0.87-1.13) 06/15/21 05:22 APTT 30.6 Sec. (24.2-36.6) 06/10/21 13:20 Heparin Anti-Xa Level 0.23 U.I./ml (0.3-0.7) L 06/16/21 12:15 Sodium 133 mmol/L (137-145) L 06/17/21 04:50 Potassium 3.6 mmol/L (3.6-5.0) 06/17/21 04:50 Chloride 106.5 mmol/L (98-107) 06/17/21 04:50 Carbon Dioxide 15 mmol/L (22-30) L 06/17/21 04:50 Anion Gap 15 mmol/L 06/17/21 04:50 BUN 15 mg/dL (9-20) 06/17/21 04:50 Creatinine 1.1 mg/dL (0.8-1.3) 06/17/21 04:50 Estimated GFR > 60 ml/min 06/17/21 04:50 BUN/Creatinine Ratio 14 % 06/17/21 04:50 Glucose 112 mg/dL (75-100) H 06/17/21 04:50 POC Glucose 132 mg/dL (70-105) H 06/15/21 07:33 Lactic Acid 1.50 mmol/L (0.7-2.0) 06/09/21 00:14 Calcium 8.8 mg/dL (8.4-10.2) 06/17/21 04:50 Magnesium 1.80 mg/dL (1.7-2.3) 06/11/21 05:55 Total Bilirubin 1.20 mg/dL (0.1-1.2) 06/13/21 06:34 Direct Bilirubin 0.5 mg/dL (0-0.2) H 06/13/21 06:34 Indirect Bilirubin 0.7 mg/dL 06/13/21 06:34 AST 30 units/L (5-40) 06/13/21 06:34 ALT 18 units/L (7-56) 06/13/21 06:34 Alkaline Phosphatase 167 units/L (35-129) H 06/13/21 06:34 Total Protein 4.8 g/dL (6.3-8.2) L 06/13/21 06:34 Albumin 2.3 g/dL (3.9-5) L 06/13/21 06:34 Albumin/Globulin Ratio 0.9 % 06/13/21 06:34 TSH 1.640 mlU/mL (0.270-4.200) 06/10/21 13:20 Urine Color Tamela (Yellow) 06/09/21 19:22 Urine Turbidity Clear (Clear) 06/09/21 19:22 Urine pH 5.0 (5.0-7.0) 06/09/21 19:22 Ur Specific [place] 1.017 (1.003-1.030) 06/09/21 19:22 Urine Protein <15 mg/dl mg/dL (Negative) 06/09/21 19:22 Urine Glucose (UA) Neg mg/dL (Negative) 06/09/21 19: Urine Ketones Neg mg/dL (Negative) 06/09/21 19:22 Urine Blood Neg (Negative) 06/09/21 19:22 Urine Nitrite Neg (Negative) 06/09/21 19:22 Urine Bilirubin Neg (Negative) 06/09/21 19:22 Urine Urobilinogen 2.0 mg/dL (<2.0) 06/09/21 19:22 Ur Leukocyte Esterase Neg (Negative) 06/09/21 19:22 Urine WBC (Auto) < 1.0 /HPF (0.0-6.0) 06/09/21 19:22 Urine RBC (Auto) < 1.0 /HPF (0.0-6.0) 06/09/21 19:22 U Epithel Cells (Auto) < 1.0 /HPF (0-13.0) 06/09/21 19:22 Urine Mucus Few /HPF 06/09/21 19:22 SARS-CoV-2 (PCR) Negative (Negative) 06/11/21 10:00 Microbiology: Microbiology 06/12/21 15:31 Peripheral/Venous Blood Culture - Final NO GROWTH AFTER 5 DAYS 06/12/21 15:31 Peripheral/Venous Blood Culture - Final NO GROWTH AFTER 5 DAYS Adams/IV: Voiding Method Indwelling Catheter Active Medications - Current Medications Current Medications: Generic Name Dose Route Start Last Admin Trade Name Freq PRN Reason Stop Dose Admin Acetaminophen 650 mg 06/09/21 06:19 06/11/21 21:34 Acetaminophen 325 Mg Tab PO 650 mg Q4H PRN Administration Pain MILD(1-3)/Fever >100.5/GONSALES Amiodarone HCl 200 mg 06/14/21 11:00 06/18/21 11:14 Amiodarone 200 Mg Tab PO 200 mg BID TOY Administration Bisacodyl 10 mg 06/09/21 13:39 Bisacodyl 10 Mg Rect Supp [place] QDAY PRN Constipation Duloxetine HCl 30 mg 06/10/21 15:00 06/18/21 11:14 Duloxetine 30 Mg Cap PO 30 mg QDAY TOY Administration Folic Acid 1 mg 06/13/21 10:00 06/18/21 11:15 Folic Acid 1 Mg Tab PO 1 mg DAILY TOY Administration Cefazolin Sodium 2 gm/ Sodium 100 mls @ 200 mls/hr 06/14/21 09:00 06/18/21 11:14 Chloride IV 07/10/21 17:29 200 mls/hr Q8H TOY Administration Protocol Lactulose 10 gm 06/17/21 08:00 06/18/21 11:15 Lactulose 20 Gm/30 Ml Oral Liqd PO 10 gm Q8H TOY Administration Lorazepam 1 mg 06/12/21 16:00 06/14/21 10:03 Lorazepam 2 Mg/Ml Vial IV 1 mg Q4H PRN Administration Agitation Magnesium Hydroxide 30 ml 06/09/21 06:19 Magnesium Hydroxide (Mom) Oral Liqd Udc PO Q4H PRN Constipation Metoprolol Tartrate 12.5 mg 06/15/21 14:00 06/18/21 11:15 Metoprolol Tartrate 25 Mg Tab PO 12.5 mg QID TOY Administration Midodrine 15 mg 06/17/21 13:00 06/18/21 11:14 Midodrine 5 Mg Tab PO 15 mg 0900,1300,1700 TOY Administration Morphine Sulfate 2 mg 06/09/21 06:19 06/15/21 16:55 Morphine 2 Mg/1 Ml Inj IV 2 mg Q4H PRN Administration Pain, Moderate (4-6) Morphine Sulfate 4 mg 06/09/21 06:19 Morphine 4 Mg/1 Ml Inj IV Q4H PRN Pain , Severe (7-10) Ondansetron HCl 4 mg 06/09/21 06:19 Ondansetron 4 Mg/2 Ml Inj IV Q8H PRN Nausea And Vomiting Pantoprazole Sodium 40 mg 06/12/21 17:00 06/18/21 11:15 Pantoprazole 40 Mg Tab PO 40 mg QDAC TOY Administration Sodium Bicarbonate 650 mg 06/16/21 10:00 06/18/21 11:14 Sodium Bicarbonate 650 Mg Tab PO 650 mg BID TOY Administration Sodium Chloride 10 ml 06/09/21 10:00 06/18/21 11:15 Sodium Chloride 0.9% 10 Ml Flush Syringe IV Not Given BID TOY Sodium Chloride 10 ml 06/09/21 06:19 Sodium Chloride 0.9% 10 Ml Flush Syringe IV PRN PRN LINE FLUSH Nutrition/Malnutrition Assess - Dietary Evaluation Nutrition/Malnutrition Findings: Nutrition Notes Start: 06/16/21 17:03 Freq: Status: Active Protocol: Document 06/16/21 17:03 EDISON (Rec: 06/16/21 17:20 EDISON [email or web address]) Nutrition Notes Need for Assessment generated from: LOS Initial or Follow up Assessment Other Pertinent Diagnosis Cirrhosis, Ascites, EtOH dependance, Bacteremia, Esophageal Varices ... Current Diet Cardiac Diet (since D 06/12). Labs/Tests 06/16: Na 134, CO2 15, Glu 111 , Ca 7.9. Pertinent Medications 06/16: Folic Acid, others nutritional;ly unremarkable. 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 Weight Status Obese Subjective/Other Information RD consult for LOS assessment. Pt's PO intake of meals has been Poor in average, varying from 0 to 75%, as appetite changes are reported by staff toxicologist, according to Physical Assessment History notes and Progress notes. I will prescribe Dietary Supplements to compensate for poor PO intake of meals. Pt is on Room Air, O2 saturation @ 97%, according to Physical Assessment History notes. Pt has missing teeth, according to Physical Assessment History notes. Percent of energy/protein needs met: Prescribed Cardiac Diet provides for energy/protein needs (2,230 Kcal/85 g) during LOS; additionally, Dietary Supplements will compensate for possible poor or insufficient PO intake of meals with 700 Kcal and 40 g of protein. Burn Absent Trauma Absent GI Symptoms None Food Allergy No Skin Integrity/Comment Unspecified area of concern. Current % PO Poor (25-49%) Minimum of two criteria No #1 Nutrition Diagnosis Inadequate protein-energy intake Etiology EtOH dependance and associated chronic metabolic conditions. As Evidenced by Signs and Symptoms Pt's PO intake of meals has been Poor in average, varying from 0 to 75%, as appetite changes are reported by staff toxicologist, according to Physical Assessment History notes and Progress notes. Is patient on ventilator? No Is Patient Ambulatory and/or Out of Bed Yes REE-([place]-St. Jeor-ambulatory/OOB) [ 2144.519 [id number]] Kcal/Kg value to use for calculation 20 Approximate Energy Requirements Using 1752 kcal/Kg Calculation Used for Recommendations Kcal/kg Additional Notes Protein: 1-1.2 g/Kg AdjBW; 78- 94 g/day. Fluids: 1 ml/Kcal, or as per MD. Nutrition Intervention Change Diet Order: Continue Cardiac Diet, as tolerated. Add Supplement/Snack (indicate name/kcal Start 8 fl oz Ensure Enlive; /protein ) BID. Provides kCal: 700 Provides Protein (gm) 40 Goal #1 Compensate, through dietary supplementation, for possible poor or insufficient PO intake of meals during LOS. Goal #2 Maintain body weight within +/ -3% of admission body weight during LOS. Follow-Up By: 06/23/21 Additional Comments Continue monitoring food tolerance, %PO intake of meals , and BM.
[2021-06-19] MEDS: LACTULOSE 20 GM/30 ML ORAL LIQD PO SCH ×3 (00:20→16:39)
[2021-06-19] MEDS: PANTOPRAZOLE 40 MG TAB PO SCH (08:30)
[2021-06-19] MEDS: MIDODRINE 5 MG TAB PO SCH ×3 (08:30→16:34)
[2021-06-19] MEDS: DULoxetine 30 MG CAP PO SCH (10:14)
[2021-06-19] MEDS: FOLIC ACID 1 MG TAB PO SCH (10:14)
[2021-06-19] MEDS: SODIUM BICARBONATE 650 MG TAB PO SCH (10:14)
[2021-06-19] MEDS: AMIODARONE 200 MG TAB PO SCH (10:14)
[2021-06-19 11:34] VITALS: BP 101/63
--- NOTE | 2021-06-19 12:10 | Progress Note ---
Assessment and Plan Assessment and plan: #Hypotensionstable -Likely secondary to cirrhosis -Home blood pressure medications currently held -Continue midodrine 15 mg 3 times daily as patient's hypotension will be chronic in the setting of decompensated cirrhosis #Atrial fibrillation with RVR-resolved -Discontinued heparin gtt -Cardioversion unable to be completed secondary to esophageal varices history. -Discontinued amiodarone drip and continuing with p.o. amiodarone 200 mg twice daily. Given increased risk for bleeding, patient will not be discharged with anticoagulation. -Cardiology following, assistance appreciated #Decompensated alcoholic cirrhosis with ascitesstable #Esophageal varices -Child Monson score class B; meldNA score 15. Patient is not currently a transplant candidate as he continues alcohol consumption. -Spironolactone, propranolol and diuretics held due to hypotension -Low clinical suspicion for SBP -Status post paracentesis with removal of 10 L on 06/15/2021. Patient received albumin supplementation. #Hepatic encephalopathyresolved -Patient with waxing and waning mental status -Continue lactulose and titrate to at least 3 bowel movements per day #Suppurative thrombophlebitis #Staph aureus bacteremia -Per nursing and patient pus expressed from right brachial vein with IV removal -Blood cultures: 02/17 cultures growing MS staph aureus -Repeat blood cultures 06/12: NGTD x24hrs -TTE on 06/10 no vegetations noted Continue Ancef 2 g every 8 hours for total of 4 weeks (completes 07/10/2021). Midline ordered. -Right upper extremity Doppler showed occlusive superficial thrombus within the right basilic and cephalic vein -ID consultation; appreciate recs #Thrombocytopenia- stable -likely secondary to cirrhosis -will continue to monitor #Leukopenia -Likely secondary to cirrhosis, will continue to monitor #Head injury/laceration -secondary to ground-level fall. -CT of the brain negative for acute findings #Posttraumatic stress disorder -continue Cymbalta -Psychiatry following, assistance appreciated #Lactic acidosis-resolved #Advanced care planning -Disease education conducted, care plan discussed, diagnoses discussed, prognosis discussed with the patients Jolly who acknowledges understanding with care plan. -Time: +30 min #Obesity #Weight loss counseling #Exercise counseling - BMI 30.2 - Counseled patient on the importance of weight loss, incorporating exercise, and dietary changes (lean meats, fresh fruits and vegetables, and water intake). Patient expresses understanding. - Time: +15 min #Alcohol dependence - Counseled patient on the importance of ETOH cessation. Assess patient's current ETOH consumption. Assisted with trying to arrange resources for patient to adequately work towards ETOH cessation. Patient expresses understanding. -Time: +15 mins #Discharge planning - Patient is pending ability to have IV antibiotics that are prescribed in [place] and going to be [facility] [place]. [facility] and assisting with providing [facility] across state lines. - Case management has been made aware. #Advanced care planning -Disease education conducted, care plan discussed, diagnoses discussed, prognosis discussed, and patient acknowledges understanding with care plan -Time: +30 min Disposition Plan: Continue medical management Total Time Spent with Patient (Minutes): 30 minutes History Interval history: No acute events overnight. Hospitalist Physical - Constitutional Vitals: Temp Pulse Resp BP Pulse Ox 97.9 F 86 16 101/63 95 06/19/21 11:33 06/19/21 11:33 06/19/21 11:33 06/19/21 11:33 06/19/21 11:33 General appearance: Present: no acute distress, cachectic - EENT Eyes: Present: PERRL, EOM intact ENT: hearing intact, clear oral mucosa, dentition normal - Neck Neck: Present: supple, normal ROM - Respiratory Respiratory effort: normal Respiratory: bilateral: CTA - Cardiovascular Rhythm: irregularly irregular Heart Sounds: Present: S1 & S2 - Extremities Extremities: no ischemia, pulses intact, normal temperature, normal color Extremity abnormal: edema (2+ pitting edema bilateral lower extremities) Peripheral Pulses: within normal limits - Abdominal General gastrointestinal: soft, non-tender, distended (Mild ascites), normal bowel sounds - Integumentary Integumentary: Present: clear, warm, dry - Psychiatric Psychiatric: appropriate mood/affect, intact judgment & insight, memory intact, cooperative - Neurologic Neurologic: CNII-XII intact, moves all extremities - Allied Health Allied health notes reviewed: nursing Results - Labs CBC & Chem 7: 06/18/21 05:29 06/17/21 04:50 Labs: Laboratory Last Values WBC 5.6 K/mm3 (4.5-11.0) 06/15/21 05:22 RBC 4.08 M/mm3 (3.65-5.03) 06/15/21 05:22 Hgb 13.7 gm/dl (11.8-15.2) 06/18/21 05:29 Hct 40.1 % (35.5-45.6) 06/18/21 05:29 MCV 104 fl (84-94) H 06/15/21 05:22 MCH 36 pg (28-32) H 06/15/21 05:22 MCHC 34 % (32-34) 06/15/21 05:22 RDW 15.3 % (13.2-15.2) H 06/15/21 05:22 Plt Count 162 K/mm3 (140-440) 06/18/21 05:29 Lymph % (Auto) 6.2 % (13.4-35.0) L 06/10/21 04:59 [place] % (Auto) 9.7 % (0.0-7.3) H 06/10/21 04:59 Eos % (Auto) 1.1 % (0.0-4.3) 06/10/21 04:59 Baso % (Auto) 1.2 % (0.0-1.8) 06/10/21 04:59 Lymph # (Auto) 0.2 K/mm3 (1.2-5.4) L 06/10/21 04:59 [place] # (Auto) 0.4 K/mm3 (0.0-0.8) 06/10/21 04:59 Eos # (Auto) 0.0 K/mm3 (0.0-0.4) 06/10/21 04:59 Baso # (Auto) 0.0 K/mm3 (0.0-0.1) 06/10/21 04:59 Seg Neutrophils % 81.8 % (40.0-70.0) H 06/10/21 04:59 Seg Neutrophils # 3.2 K/mm3 (1.8-7.7) 06/10/21 04:59 PT 13.9 Sec. (12.2-14.9) 06/15/21 05:22 INR 0.97 (0.87-1.13) 06/15/21 05:22 APTT 30.6 Sec. (24.2-36.6) 06/10/21 13:20 Heparin Anti-Xa Level 0.23 U.I./ml (0.3-0.7) L 06/16/21 12:15 Sodium 133 mmol/L (137-145) L 06/17/21 04:50 Potassium 3.6 mmol/L (3.6-5.0) 06/17/21 04:50 Chloride 106.5 mmol/L (98-107) 06/17/21 04:50 Carbon Dioxide 15 mmol/L (22-30) L 06/17/21 04:50 Anion Gap 15 mmol/L 06/17/21 04:50 BUN 15 mg/dL (9-20) 06/17/21 04:50 Creatinine 1.1 mg/dL (0.8-1.3) 06/17/21 04:50 Estimated GFR > 60 ml/min 06/17/21 04:50 BUN/Creatinine Ratio 14 % 06/17/21 04:50 Glucose 112 mg/dL (75-100) H 06/17/21 04:50 POC Glucose 132 mg/dL (70-105) H 06/15/21 07:33 Lactic Acid 1.50 mmol/L (0.7-2.0) 06/09/21 00:14 Calcium 8.8 mg/dL (8.4-10.2) 06/17/21 04:50 Magnesium 1.80 mg/dL (1.7-2.3) 06/11/21 05:55 Total Bilirubin 1.20 mg/dL (0.1-1.2) 06/13/21 06:34 Direct Bilirubin 0.5 mg/dL (0-0.2) H 06/13/21 06:34 Indirect Bilirubin 0.7 mg/dL 06/13/21 06:34 AST 30 units/L (5-40) 06/13/21 06:34 ALT 18 units/L (7-56) 06/13/21 06:34 Alkaline Phosphatase 167 units/L (35-129) H 06/13/21 06:34 Total Protein 4.8 g/dL (6.3-8.2) L 06/13/21 06:34 Albumin 2.3 g/dL (3.9-5) L 06/13/21 06:34 Albumin/Globulin Ratio 0.9 % 06/13/21 06:34 TSH 1.640 mlU/mL (0.270-4.200) 06/10/21 13:20 Urine Color [place] (Yellow) 06/09/21 19:22 Urine Turbidity Clear (Clear) 06/09/21 19: Urine pH 5.0 (5.0-7.0) 06/09/21 19:22 Ur Specific [place] 1.017 (1.003-1.030) 06/09/21 19:22 Urine Protein <15 mg/dl mg/dL (Negative) 06/09/21 19: Urine Glucose (UA) Neg mg/dL (Negative) 06/09/21 19: Urine Ketones Neg mg/dL (Negative) 06/09/21 19: Urine Blood Neg (Negative) 06/09/21 19: Urine Nitrite Neg (Negative) 06/09/21 19: Urine Bilirubin Neg (Negative) 06/09/21 19: Urine Urobilinogen 2.0 mg/dL (<2.0) 06/09/21 19:22 Ur Leukocyte Esterase Neg (Negative) 06/09/21 19: Urine WBC (Auto) < 1.0 /HPF (0.0-6.0) 06/09/21 19: Urine RBC (Auto) < 1.0 /HPF (0.0-6.0) 06/09/21 19: U Epithel Cells (Auto) < 1.0 /HPF (0-13.0) 06/09/21 19: Urine Mucus Few /HPF 06/09/21 19:22 SARS-CoV-2 (PCR) Negative (Negative) 06/11/21 10:00 [place]/IV: Voiding Method Indwelling Catheter Active Medications - Current Medications Current Medications: Generic Name Dose Route Start Last Admin Trade Name Freq PRN Reason Stop Dose Admin Acetaminophen 650 mg 06/09/21 06:19 06/11/21 21:34 Acetaminophen 325 Mg Tab PO 650 mg Q4H PRN Administration Pain MILD(1-3)/Fever >100.5/GONSALES Amiodarone HCl 200 mg 06/14/21 11:00 06/19/21 10:14 Amiodarone 200 Mg Tab PO 200 mg BID TOY Administration Bisacodyl 10 mg 06/09/21 13:39 Bisacodyl 10 Mg Rect Supp UT QDAY PRN Constipation Duloxetine HCl 30 mg 06/10/21 15:00 06/19/21 10:14 Duloxetine 30 Mg Cap PO 30 mg QDAY TOY Administration Folic Acid 1 mg 06/13/21 10:00 06/19/21 10:14 Folic Acid 1 Mg Tab PO 1 mg DAILY TOY Administration Cefazolin Sodium 2 gm/ Sodium 100 mls @ 200 mls/hr 06/14/21 09:00 06/19/21 08:30 Chloride IV 07/10/21 17:29 200 mls/hr Q8H TOY Administration Protocol Lactulose 10 gm 06/17/21 08:00 06/19/21 08:30 Lactulose 20 Gm/30 Ml Oral Liqd PO 10 gm Q8H TOY Administration Lorazepam 1 mg 06/12/21 16:00 06/14/21 10:03 Lorazepam 2 Mg/Ml Vial IV 1 mg Q4H PRN Administration Agitation Magnesium Hydroxide 30 ml 06/09/21 06:19 Magnesium Hydroxide (Mom) Oral Liqd Udc PO Q4H PRN Constipation Midodrine 15 mg 06/17/21 13:00 06/19/21 08:30 Midodrine 5 Mg Tab PO 15 mg 0900,1300,1700 TOY Administration Morphine Sulfate 2 mg 06/09/21 06:19 06/15/21 16:55 Morphine 2 Mg/1 Ml Inj IV 2 mg Q4H PRN Administration Pain, Moderate (4-6) Morphine Sulfate 4 mg 06/09/21 06:19 Morphine 4 Mg/1 Ml Inj IV Q4H PRN Pain , Severe (7-10) Ondansetron HCl 4 mg 06/09/21 06:19 Ondansetron 4 Mg/2 Ml Inj IV Q8H PRN Nausea And Vomiting Pantoprazole Sodium 40 mg 06/12/21 17:00 06/19/21 08:30 Pantoprazole 40 Mg Tab PO 40 mg QDAC TOY Administration Sodium Bicarbonate 650 mg 06/16/21 10:00 06/19/21 10:14 Sodium Bicarbonate 650 Mg Tab PO 650 mg BID TOY Administration Sodium Chloride 10 ml 06/09/21 10:00 06/19/21 10:14 Sodium Chloride 0.9% 10 Ml Flush Syringe IV 10 ml BID TOY Administration Sodium Chloride 10 ml 06/09/21 06:19 Sodium Chloride 0.9% 10 Ml Flush Syringe IV PRN PRN LINE FLUSH Nutrition/Malnutrition Assess - Dietary Evaluation Nutrition/Malnutrition Findings: Nutrition Notes Start: 06/16/21 17:03 Freq: Status: Active Protocol: Document 06/16/21 17:03 EDISON (Rec: 06/16/21 17:20 EDISON [id number]) Nutrition Notes Need for Assessment generated from: LOS Initial or Follow up Assessment Other Pertinent Diagnosis Cirrhosis, Ascites, EtOH dependance, Bacteremia, Esophageal Varices ... Current Diet Cardiac Diet (since D 06/12). Labs/Tests 06/16: Na 134, CO2 15, Glu 111 , Ca 7.9. Pertinent Medications 06/16: Folic Acid, others nutritional;ly unremarkable. Height 5 ft 7 in Weight 87.6 kg [place] Body Weight (kg) 67.27 BMI 30.2 Intake Prior to Admission Good Weight change and time frame Pt denies having loss body weight [employer]. Weight Status Obese Subjective/Other Information RD consult for LOS assessment. Pt's PO intake of meals has been Poor in average, varying from 0 to 75%, as appetite changes are reported by staff development coordinator rn, according to Physical Assessment History notes and Progress notes. I will prescribe Dietary Supplements to compensate for poor PO intake of meals. Pt is on Room Air, O2 saturation @ 97%, according to Physical Assessment History notes. Pt has missing teeth, according to Physical Assessment History notes. Percent of energy/protein needs met: Prescribed Cardiac Diet provides for energy/protein needs (2,230 Kcal/85 g) during LOS; additionally, Dietary Supplements will compensate for possible poor or insufficient PO intake of meals with 700 Kcal and 40 g of protein. Burn Absent Trauma Absent GI Symptoms None Food Allergy No Skin Integrity/Comment Unspecified area of concern. Current % PO Poor (25-49%) Minimum of two criteria No #1 Nutrition Diagnosis Inadequate protein-energy intake Etiology EtOH dependance and associated chronic metabolic conditions. As Evidenced by Signs and Symptoms Pt's PO intake of meals has been Poor in average, varying from 0 to 75%, as appetite changes are reported by staff development coordinator rn, according to Physical Assessment History notes and Progress notes. Is patient on ventilator? No Is Patient Ambulatory and/or Out of Bed Yes REE-([place] or-ambulatory/OOB) [ 2144.519 NUTR.MSJOOB] Kcal/Kg value to use for calculation 20 Approximate Energy Requirements Using 1752 kcal/Kg Calculation Used for Recommendations Kcal/kg Additional Notes Protein: 1-1.2 g/Kg AdjBW; 78- 94 g/day. Fluids: 1 ml/Kcal, or as per MD. Nutrition Intervention Change Diet Order: Continue Cardiac Diet, as tolerated. Add Supplement/Snack (indicate name/kcal Start 8 fl oz Ensure Enlive; /protein ) BID. Provides kCal: 700 Provides Protein (gm) 40 Goal #1 Compensate, through dietary supplementation, for possible poor or insufficient PO intake of meals during LOS. Goal #2 Maintain body weight within +/ -3% of admission body weight during LOS. Follow-Up By: 06/23/21 Additional Comments Continue monitoring food tolerance, %PO intake of meals , and BM.
--- NOTE | 2021-06-19 13:27 | Discharge Summary ---
Providers - Providers Date of Admission: 06/09/21 06:19 Date of discharge: 06/19/21 Attending physician: ELOISA RODRIGUEZ MD 06/10/21 08:48 Consult to Physician [CONS] Routine Comment: Consulting Provider: GOLDIE CORTZE Physician Instructions: Reason For Exam: tachycardia 06/14/21 08:18 Consult to Physician [CONS] Routine Comment: Consulting Provider: DOUG CASEY Physician Instructions: Reason For Exam: MSSA bacteremia 06/15/21 15:17 Consult to Case Management [CONS] Routine Services Needed at Discharge: Home Health Services Notified:: protective services case worker Additional Physician Instructions: Mike Casey MD [facility] infectious [facility] ([facility]) M: [phone] O: [phone] F: [phone] Outpatient parenteral antibiotic therapy orders Diagnosis: MSSA bacteremia Antibiotic administration:Ancef 2 g every 8 hours until 07/10/2021 Line: Midline Lab monitoring: CBC with differential, BUN, creatinine, LFTs For critical labs, call office: [phone] Mike Casey 06/16/21 16:06 Midline [Consult to PICC Line RN] [CONS] Routine Reason For Exam: Antibiotic management Type Line:: Midline 06/17/21 14:31 Physical Therapy Evaluation and Treat [CONS] Stat Comment: Reason For Exam: PT to eval and treat 06/17/21 14:32 Occupational Therapy Evaluate and Treat [CONS] Stat Comment: Reason For Exam: OT to eval and treat 06/18/21 07:30 Consult to PICC Line RN [CONS] Routine Reason For Exam: Antibiotic management in outpatient setting Type Line:: Midline Primary care physician: VIVEK GARCIA Hospitalization Reason for admission: Hypotension, hepatic encephalopathy Condition: Stable Pertinent studies: Reviewed. Procedures: None. Hospital course: Patient is a 60-year-old male past medical history of decompensated alcoholic cirrhosis complicated by ascites and esophageal varices and hepatic encephalopathy, hypertension, depression, gout, atrial fibrillation on anticoagulation, and PTSD who presented with acute metabolic encephalopathy and frequent falls. EMS transported the patient, and he was found to be hypotensive to 80/40. The patient had fallen and sustained a laceration to his orbit. On arrival the patient was immediately administered IV fluids to increase his blood pressure to approximately 130/52. Patient was found to be hyponatremic 132, mild lactic acidosis of 2.4, and hypocalcemia of 2.7. The patient later went into atrial fibrillation with RVR, and cardiology was consulted. He was initiated on amiodarone drip and eventually transition to p.o. amiodarone 200 mg daily. Due to the patient's continued alcohol dependence and frequent falls, the decision was made to hold anticoagulation. Psychiatry was consulted due to concerns for self-harm. On initial presentation in the ED the patient was placed on a 1013 that was eventually discontinued by psychiatry on 06/10/2021. Infectious disease was consulted after blood cultures revealed MSSA in 1 bottle. Patient was initiated on Ancef. The patient was also found to have suppurative thrombophlebitis. Infectious disease recommended Ancef 2 g every 8 hours for total of 4 weeks (to be completed on 07/10/2021). Given the patient's significant hypotension, the decision was made to hold beta-blockade and Aldactone. The patient has since been started on p.o. midodrine 15 mg 3 times daily. Patient has been counseled at length about the importance of alcohol cessation. A very guerda conversation was had with the patient's spouse (Rossy) about the patient's poor prognosis, and she expressed understanding. The patient was recommended home hospice; however, he disagreed. Patient is medically clear for discharge. Disposition: 01 HOME / SELF CARE / HOMELESS Final Discharge Diagnosis (Prints w/discharge instructions): Hypotension, atrial fibrillation with RVR, decompensated alcoholic cirrhosis with ascites and esophageal varices, hepatic encephalopathy, suppurative thrombophlebitis, staff aureus bacteremia, thrombocytopenia, leukopenia, head injury/laceration, posttraumatic stress disorder, lactic acidosis, obesity, alcohol dependence. Time spent for discharge: 45 min Core Measure Documentation - Palliative Care Palliative Care/ Comfort Measures: Not Applicable - Core Measures Any of the following diagnoses?: history only Exam - Constitutional Vitals: Temp Pulse Resp BP Pulse Ox 97.9 F 86 16 101/63 95 06/19/21 11:33 06/19/21 11:33 06/19/21 11:33 06/19/21 11:33 06/19/21 11:33 General appearance: Present: no acute distress, well-nourished, obese, disheveled - EENT Eyes: Present: PERRL, EOM intact ENT: hearing intact, clear oral mucosa, dentition normal - Neck Neck: Present: supple, normal ROM - Respiratory Respiratory effort: normal Respiratory: bilateral: CTA - Cardiovascular Rhythm: regular Heart Sounds: Present: S1 & S2 - Extremities Extremities: no ischemia, pulses intact, pulses symmetrical, normal temperature, normal color Extremity abnormal: edema (1+ pitting edema bilateral lower extremities) Peripheral Pulses: within normal limits - Abdominal General gastrointestinal: Present: soft, non-tender, distended (Mild ascites), normal bowel sounds Male genitourinary: Present: deferred - Rectal Rectal Exam: deferred - Integumentary Integumentary: Present: clear, warm, dry - Musculoskeletal Musculoskeletal: generalized weakness - Psychiatric Psychiatric: appropriate mood/affect, memory intact, cooperative, other (Limited insight of overall prognosis) - Neurologic Neurologic: CNII-XII intact, moves all extremities - Allied Health Allied health notes reviewed: nursing Plan Activity: advance as tolerated Diet: regular Additional Instructions: Patient is a 60-year-old male past medical history of decompensated alcoholic cirrhosis complicated by ascites and esophageal varices and hepatic encephalopathy, hypertension, depression, gout, atrial fibrillation on anticoagulation, and PTSD who presented with acute metabolic encephalopathy and frequent falls. EMS transported the patient, and he was found to be hypotensive to 80/40. The patient had fallen and sustained a laceration to his orbit. On arrival the patient was immediately administered IV fluids to increase his blood pressure to approximately 130/52. Patient was found to be hyponatremic 132, mild lactic acidosis of 2.4, and hypocalcemia of 2.7. The patient later went into atrial fibrillation with RVR, and cardiology was consulted. He was initiated on amiodarone drip and eventually transition to p.o. amiodarone 200 mg daily. Due to the patient's continued alcohol dependence and frequent falls, the decision was made to hold anticoagulation. Psychiatry was consulted due to concerns for self-harm. On initial presentation in the ED the patient was placed on a 1013 that was eventually discontinued by psychiatry on 06/10/2021. Infectious disease was consulted after blood cultures revealed MSSA in 1 bottle. Patient was initiated on Ancef. The patient was also found to have suppurative thrombophlebitis. Infectious disease recommended Ancef 2 g every 8 hours for total of 4 weeks (to be completed on 07/10/2021). Given the patient's significant hypotension, the decision was made to hold beta-blockade and Aldactone. The patient has since been started on p.o. midodrine 15 mg 3 times daily. Patient has been counseled at length about the importance of alcohol cessation. A very guerda conversation was had with the patient's spouse (Rossy) about the patient's poor prognosis, and she expressed understanding. The patient was recommended home hospice; however, he disagreed. Patient is medically clear for discharge. Care Plan Goals: Patient is medically clear for discharge. Assessment: Patient is a 60-year-old male past medical history of decompensated alcoholic cirrhosis complicated by ascites and esophageal varices and hepatic encephalopathy, hypertension, depression, gout, atrial fibrillation on anticoagulation, and PTSD who presented with acute metabolic encephalopathy and frequent falls. EMS transported the patient, and he was found to be hypotensive to 80/40. The patient had fallen and sustained a laceration to his orbit. On arrival the patient was immediately administered IV fluids to increase his blood pressure to approximately 130/52. Patient was found to be hyponatremic 132, mild lactic acidosis of 2.4, and hypocalcemia of 2.7. The patient later went into atrial fibrillation with RVR, and cardiology was consulted. He was initiated on amiodarone drip and eventually transition to p.o. amiodarone 200 mg daily. Due to the patient's continued alcohol dependence and frequent falls, the decision was made to hold anticoagulation. Psychiatry was consulted due to concerns for self-harm. On initial presentation in the ED the patient was placed on a 1013 that was eventually discontinued by psychiatry on 06/10/2021. Infectious disease was consulted after blood cultures revealed MSSA in 1 bottle. Patient was initiated on Ancef. The patient was also found to have suppurative thrombophlebitis. Infectious disease recommended Ancef 2 g every 8 hours for total of 4 weeks (to be completed on 07/10/2021). Given the patient's significant hypotension, the decision was made to hold beta-blockade and Aldactone. The patient has since been started on p.o. midodrine 15 mg 3 times daily. Patient has been counseled at length about the importance of alcohol cessation. A very guerda conversation was had with the patient's spouse (Rossy) about the patient's poor prognosis, and she expressed understanding. The patient was recommended home hospice; however, he disagreed. Patient is medically clear for discharge. Follow up with: VIVEK GARCIA MD [Primary Care Provider] - 3-5 Days Prescriptions: Lactulose [Cephulac] 10 gm PO Q8H #2 bottle Amiodarone [Cordarone 200 MG TAB] 200 mg PO BID #60 tablet DULoxetine [Cymbalta] 30 mg PO QDAY #30 capsule Folic Acid 1 tab PO DAILY #30 tab Midodrine [Proamatine] 15 mg PO 0900,1300,1700 #45 tablet Sodium Bicarbonate 650 mg PO BID #60 tablet
== END 2021-06-19 18:46 | disposition home health service (06) | DRG 432 ==
LOC: ED 21:09 → 3A 06-09 06:19 → 4A 06-10 13:15
PROVIDERS: ADMIT Internal Medicine Geriatric Medicine; ATTEND Student in an Organized Health Care Education/Training Program
PROC: 0W9G3ZZ Drainage of Peritoneal Cavity, Percutaneous Approach (ICD-10-PCS; 2021-06-15)
PROC: 05HA33Z Insertion of Infusion Device into Left Brachial Vein, Percutaneous Approach (ICD-10-PCS; principal; 2021-06-18)
DX: K70.31 Alcoholic cirrhosis of liver with ascites (principal); G93.41 Metabolic encephalopathy; E87.2 Acidosis; E87.1 Hypo-osmolality and hyponatremia; I85.00 Esophageal varices without bleeding; I48.91 Unspecified atrial fibrillation; E83.51 Hypocalcemia; I80.9 Phlebitis and thrombophlebitis of unspecified site; D69.6 Thrombocytopenia, unspecified; F43.10 Post-traumatic stress disorder, unspecified; Z20.822 Contact with and (suspected) exposure to COVID-19; R29.6 Repeated falls; F32.9 Major depressive disorder, single episode, unspecified; K21.9 Gastro-esophageal reflux disease without esophagitis; M10.9 Gout, unspecified; W18.39XA Other fall on same level, initial encounter; Y93.89 Activity, other specified; Y92.89 Other specified places as the place of occurrence of the external cause; Y99.8 Other external cause status; I95.1 Orthostatic hypotension; S01.01XA Laceration without foreign body of scalp, initial encounter; Z82.49 Family history of ischemic heart disease and other diseases of the circulatory system; D72.819 Decreased white blood cell count, unspecified; K72.90 Hepatic failure, unspecified without coma; R33.9 Retention of urine, unspecified; A49.01 Methicillin susceptible Staphylococcus aureus infection, unspecified site; Y90.9 Presence of alcohol in blood, level not specified; F10.20 Alcohol dependence, uncomplicated; Z71.41 Alcohol abuse counseling and surveillance of alcoholic; E66.9 Obesity, unspecified; Z68.27 Body mass index [BMI] 27.0-27.9, adult; Z71.3 Dietary counseling and surveillance
CPT/HCPCS: 36415; 49083; 70450; 80048; 80076; 81001; 82140; 82565; 82962; 83735; 84443; 85014; 85018; 85025; 85027; 85049; 85520; 85610; 85730; 87040; 87076; 87186; 93005; 93306; G0378; J3490; J7060; C8929; J0282; J0690; J1160; J1644; J2060; J2270; J3370; J3475; J7030; J7040; U0003